=== PATIENT | female | born 1950 | race Caucasian/White ===

== ENCOUNTER 2017-03-03 12:53 | Inpatient (IN) | payer MEDICARE, MEDICAID ==
[2017-03-03] MEDS ORDERED: Acetaminophen TAB* 325 MG PO PRN ×2 (14:34→19:47)
[2017-03-03] MEDS ORDERED: NS 0.9% 1000 ML* 1,000 ML IV SCH (14:45)
[2017-03-03] MEDS ORDERED: Vancomycin(*) 1,000 MG in NS 0.9% 250 ML* 250 ML IVPB ONE (16:00)
[2017-03-03 16:27] LABS: Hematocrit 35 % (35-47); Hemoglobin 10.7 g/dl (12.0-16.0); Mean Corpuscular HGB Conc 31 g/dl (31-36); Mean Corpuscular Hemoglobin 22 pg (27-31); Mean Platelet Volume 7 um3 (7.4-10.4); Red Cell Distribution Width 17 % (10.5-15); White Blood Count 13.4 10^3/ul (3.5-10.8)
[2017-03-03 16:29] LABS: Comments Flag Yes
[2017-03-03 16:30] LABS: Mean Corpuscular Volume 73 fL (80-97)
[2017-03-03 17:16] LABS: Albumin 3.4 g/dL (3.2-5.2); BUN/Creatinine Ratio 17.7 (8-20); Calcium 9.1 mg/dL (8.6-10.3); EGFR African American 93.1 (>60); EGFR Non-African American 72.4 (>60); Globulin 4.5 g/dL (2-4); Potassium 4.1 mmol/L (3.5-5.0); Total Bilirubin 0.2 mg/dL (0.2-1.0); Total Protein 7.9 g/dL (6.4-8.9)
[2017-03-03] MEDS ORDERED: Vancomycin per Pharmacy* NOTE FOLLOW UP PRN (17:30)
[2017-03-03] MEDS: Zinc Sulfate CAP* 220 MG PO SCH (19:28)
[2017-03-03] MEDS: Cefepime(*) 2 GM in NS 0.9% 50 ML* 50 ML IVPB SCH (19:28)
[2017-03-03] MEDS ORDERED: Bisacodyl SUPP* 10 MG SUPP PR PRN (19:47)
[2017-03-03] MEDS ORDERED: traMADol TAB* 50 MG PO PRN (19:47)
[2017-03-03] MEDS ORDERED: Magnesium Hydroxide LIQ* 30 ML UDC PO PRN (19:47)
[2017-03-03] MEDS ORDERED: Magnesium CITRATE* 300 ML BTL PO PRN (19:47)
--- NOTE | 2017-03-03 20:48 | HP ---
HISTORY AND PHYSICAL: DATE OF ADMISSION: 03/03/17 PRIMARY CARE PROVIDER: Dr. Mee Ricketts. CHIEF COMPLAINT: Worsening wounds on the patient's buttocks. HISTORY OF PRESENT ILLNESS: Ms. Nation is a 66-year-old female with a history of multiple sclerosis with history of chronic wounds on the sacrum, status post diverting colostomy in the past, who was seen at wound care center today and decision was made for the patient to be transferred to inpatient service for treatment of those wounds that are worsening. From review of medical records, the patient was seen by Dr. Lujan on for worsening wounds on the sacral area. At that point, Dr. Lujan placed the patient on doxycycline at 100 mg b.i.d. for a total of 2 weeks. The patient still is continuing on those medications, but nevertheless, the wounds are apparently not healing well at all. The patient had a culture obtained which grew pseudomonas, Enterococcus faecalis, jan. She is being admitted with a diagnosis of wound infection. PAST MEDICAL HISTORY: 1. History of multiple sclerosis with subsequent paraplegia. 2. History of diverting colostomy due to multiple sacral nonhealing wounds in the past. 3. History of indwelling Borrego catheter. 4. History of left posterior knee ulcer that is also chronic. 5. Depression. 6. Constipation. 7. History of recurrent UTIs. 8. History of kidney stones. 9. Status post cholecystectomy. 10. History of appendectomy. 11. . MEDICATIONS: At the [facility] include: 1. Colace 100 mg b.i.d. started on 21 of February. 2. Lorazepam 1 mg at bedtime p.r.n. 3. Mirtazapine mg at night prescribed for anorexia. 4. Oxybutynin 5 mg, the patient takes 3 tablets which is a total of 15 mg daily. 5. Acetic acid 0.25% irrigation solution for irrigation of the catheter. The patient uses 30 mL of acetic acid to irrigate the catheter daily. 6. Vitamin D3 2000 units daily. 7. 150 mg daily and I believe the patient takes an additional 75 mg daily for a total of 225 mg daily. 8. Lotrisone cream topical apply to bilateral buttocks daily, 0.05% cream. 9. Dietary zinc tablet which is called Therems-M 1 tablet daily. 10. Biotin 1 tablet daily. 11. Senna with Colace 2 tablets b.i.d. 12. MiraLAX 17 g daily at bedtime. 13. Milk of magnesia. 14. Ultram on a p.r.n. basis. ALLERGIES: C1 PIGMENT BLUE 63, CYMBALTA, MORPHINE, OXYCODONE, and SENSI-CARE. FAMILY HISTORY: Negative for MS. Positive for diabetes in father. SOCIAL HISTORY: The patient is a resident at [facility]. She is wheelchair bound and paraplegic. Her daughter, Sobeida Beavers, is her healthcare proxy. Sobeida's phone number is [phone], another number is [phone]. The patient denies any tobacco, alcohol, or drug use. REVIEW OF SYSTEMS: The patient complains of pain in her buttocks. She denies any fevers. She stated that she had sores in her mouth that got better after treatment with zinc and Biotin. All the remaining 14 systems were reviewed with the patient and were otherwise negative. PHYSICAL EXAMINATION GENERAL: The patient is a very pleasant 66-year-old female, who is in no acute distress. The patient is alert, awake, and oriented x3. VITAL SIGNS: Blood pressure of 116/72, heart rate of 95 and regular, respiratory rate 18, O2 saturation 95% on room air, temperature 99.1. HEENT: Head: Atraumatic, normocephalic. Eyes: Pupils equal, reactive to light and accommodation. Oropharynx clear. Mucosa moist. NECK: Supple. No JVD, no bruit bilaterally. RESPIRATORY: Clear to auscultation bilaterally. CARDIOVASCULAR: Regular rate and rhythm. Tachycardia. No murmur. ABDOMEN: Soft, nontender. Colostomy present in the left lower quadrant with a peristomal hernia palpated. The hernia is not reducible, nontender. Bowel sounds present in all 4 quadrants. There is semi-fluid stool in the bag. EXTREMITIES: There is no edema. Pulses are +2 bilaterally. There is no clubbing or cyanosis. NEURO: The patient's speech is clear. Otherwise, she is paraplegic. PSYCHIATRIC: The patient is a rather poor historian, but pleasant and cooperative with evaluation. There is no evidence of anxiety or depression. She is pleasant and cheerful. SKIN: On evaluation of the skin, the patient has decubitus stage III in the area of her left popliteal fossa that is approximately 2 cm in diameter. Most of her other wounds involve the right buttock. The patient has an ischial tuberosity also that appears to have healed in the past and now, it has opened up again and there is a large indentation like area with an open area at the bottom of approximately 1 cm in diameter. That is not draining. She also has multiple large areas of decubitus on the right buttock. One of those areas is the size of a quarter coin and is stage III. The remaining ones are stage II. There are several of them probably 3 or 4, each of them measures approximately 2 x 3 cm. The patient also has areas of superficial excoriations in the left buttock that are decubitus stage I to II. The patient has an indwelling Borrego in place. DIAGNOSTIC STUDIES/LAB DATA: Pending at the time of dictation. ASSESSMENT AND PLAN: A 66-year-old female with history of chronic decubitus ulcers and paraplegia, status post diverting colostomy in the past as well as Borrego catheter that is currently indwelling, who presents from wound care center with complaints of nonhealing wounds. The patient was started on doxycycline by Dr. Lujan on 02/21/17 and is still continuing to take it. In regards to the patient's nonhealing wounds, there is a question of osteomyelitis in the right ischium. At this point, the patient is going to be placed on inpatient treatment. Judging from the microbiology report from the wound culture, the patient is going to be placed on vancomycin and cefepime. We will ask Dr. Lujan to see the patient for consultation to direct further antibiotic treatment. For the time being, I will obtain an MRI of the pelvis to rule out osteomyelitis. In regards to wound care, I will ask wound care center to advice in regards to the patient's continuation of treatment. The patient is going to be turned in position every 2 hours and air mattress is going to be provided. With history of chronic indwelling Borrego catheter, urinalysis is going to be obtained, but the patient is not toxic appearing and the urine in the bag appears to be clear. In regards to history of depression, Effexor is going to be continued. For DVT prophylaxis, the patient is going to be placed on heparin subcutaneously. The patient's code status is full. TIME SPENT: Approximately 65 minutes was spent on admission of this patient, more than half that time was spent [id number] with the patient during the interview and physical exam. CC: Dr. Mee Ricketts; Dr. Lujan; Dr. Loera, [facility] * [id number]/[facility] #: [id number] MTDD
[2017-03-03 22:43] LABS: Urine Bacteria Absent (Absent); Urine Bilirubin Negative (Negative); Urine Glucose Negative (Negative); Urine Nitrite Negative (Negative)
[2017-03-03] MEDS: LORazepam TAB(*) 1 MG PO SCH (22:58)
[2017-03-03] MEDS: Docusate CAP* 100 MG PO SCH (22:58)
[2017-03-03] MEDS: Polyethylene Glycol 3350* 17 GM PACKET PO SCH (22:58)
[2017-03-03] MEDS: Heparin VIAL(*) 5000 UNITS/ML VIAL (FIVE THOUSAND) SUBCUT SCH (22:59)
--- NOTE | 2017-03-03 23:21 | RAD ---
Indication: Chronic pressure wound on buttocks since 2009. Assess for osteomyelitis. Comparison: June 10, 2016 CT. Technique: [employer] 1.5 Bessy HT193P with GEM suite. Limited noncontrast CT of the pelvis obtained axial T1 and T2 fat sat as well as coronal T1, T2 fat sat, and inversion recovery series. No sagittal series obtained. Report: Based on correlation with CT post resection of the sacrum and coccyx below the S2-S3 level. Large shallow soft tissue ulcer at the RIGHT buttock extending down to the RIGHT hip which is remarkable for posterior subluxation of the femoral head relative to the acetabulum. Immediately subjacent to the soft tissue ulcer there is approximate 2 x 1.5 cm region of marrow edema within the posterior column and wall of the RIGHT acetabulum with associated decreased T1 signal. Previous CT demonstrates mild osteosclerosis in this region. The constellation of findings is consistent with chronic osteomyelitis. Small RIGHT hip joint effusion. No fracture evident. Catheterized decompressed urinary bladder. Unremarkable uterus and adnexal regions. Chronic large small and large bowel containing LEFT lower quadrant hernia exits through a fascia defect in the transverse and oblique musculature without evidence for associated inflammatory change or obstruction. Negative for ascites. No lymphadenopathy visualized. IMPRESSION: Contiguous with the RIGHT buttock soft tissue ulcer there is chronic osteomyelitis involving the posterior column posterior wall of the acetabulum. Small RIGHT hip joint effusion present with septic arthritis at the RIGHT hip is not excluded. The volume of fluid is likely too small to allow successful needle aspiration. The RIGHT hip is remarkable for chronic posterior subluxation.
[2017-03-04] MEDS: Vancomycin(*) 750 MG in NS 0.9% 250 ML* 250 ML IVPB SCH ×3 (01:08→18:01)
[2017-03-04] MEDS: Heparin VIAL(*) 5000 UNITS/ML VIAL (FIVE THOUSAND) SUBCUT SCH ×3 (04:49→21:18)
[2017-03-04] MEDS: Cefepime(*) 2 GM in NS 0.9% 50 ML* 50 ML IVPB SCH (04:49)
[2017-03-04 05:39] LABS: Hematocrit 35 % (35-47); Mean Corpuscular HGB Conc 31 g/dl (31-36); Mean Corpuscular Hemoglobin 23 pg (27-31); Mean Platelet Volume 7 um3 (7.4-10.4); Red Blood Count 4.82 10^6/ul (4.0-5.4); Red Cell Distribution Width 17 % (10.5-15)
[2017-03-04 05:40] LABS: Comments Flag Yes; Mean Corpuscular Volume 74 fL (80-97)
[2017-03-04 05:58] LABS: BUN/Creatinine Ratio 20.5 (8-20); Calcium 8.7 mg/dL (8.6-10.3); EGFR African American 182.9 (>60); EGFR Non-African American 142.2 (>60); Potassium 4.1 mmol/L (3.5-5.0)
[2017-03-04] MEDS: Oxybutynin XL TAB* 5 MG PO SCH (08:33)
[2017-03-04] MEDS: Zinc Sulfate CAP* 220 MG PO SCH (08:33)
[2017-03-04] MEDS: Venlafaxine EXT RELEASE CAP* 75 MG PO SCH (08:34)
[2017-03-04] MEDS: Docusate CAP* 100 MG PO SCH ×2 (08:34→21:16)
[2017-03-04] MEDS: Clotrimazole/Betamethasone CREAM* 15 GM TOPICAL SCH (08:34)
[2017-03-04] MEDS: Acetic Acid 0.25%* 250 ML BTL SCH (08:35)
--- NOTE | 2017-03-04 08:57 | PN ---
Subjective Date of Service: 03/04/17 Interval History: Patient seen this morning. Has no new complaints. Said she came to the hospital because her wounds were painful and were getting worse. Denies fever or chills. [facility] Family History: Unchanged from Admission Social History: Unchanged from Admission Past Medical History: Unchanged from Admission Objective Active Medications: Acetaminophen (Tylenol Tab*) 650 mg PO Q4H PRN Acetic Acid (Acetic Acid 0.25%*) 30 ml .SEE ORDER DAILY [facility] Betamethasone/Clotrimazole (Lotrisone Cream*) 1 applic TOPICAL DAILY [facility] Bisacodyl (Dulcolax Supp*) 10 mg OK DAILY PRN Docusate Sodium (Colace Cap*) 100 mg PO BID [facility] Heparin Sodium (Porcine) (Heparin Vial(*)) 5,000 units SUBCUT Q8HR [facility] Sodium Chloride (Ns 0.9% 1000 Ml*) 1,000 mls @ 75 mls/hr IV PER RATE [facility] Cefepime HCl 2 gm/ Sodium (Chloride) 50 mls @ 100 mls/hr IVPB Q12H [facility] Vancomycin HCl 750 mg/ Sodium (Chloride) 250 mls @ 166.667 mls/hr IVPB Q8H [facility] Lorazepam (Ativan Tab(*)) 1 mg PO BEDTIME [facility] Magnesium Citrate (Citrate Of Magnesia*) 60 ml PO ONCE PRN Magnesium Hydroxide (Milk Of Magnesia Liq*) 30 ml PO DAILY PRN Oxybutynin Chloride (Ditropan Xl Tab*) 15 mg PO DAILY [facility] Pharmacy Consult (Vancomycin Per Pharmacy*) 1 note FOLLOW UP . PRN Pharmacy Profile Note (Vancomycin Trough Check) 1 note FOLLOW UP 1630 ONE Polyethylene Glycol/Electrolytes (Miralax*) 17 gm PO BEDTIME [facility] Tramadol HCl (Ultram*) 50 mg PO Q8HR PRN Venlafaxine HCl (Effexor Xr Cap*) 225 mg PO DAILY [facility] Zinc Sulfate (Zinc-220 Cap*) 220 mg PO DAILY [facility] Vital Signs 03/03/17 03/03/17 03/03/17 15:01 20:09 22:58 Temperature 98.1 F 98.3 F Pulse Rate 105 100 Respiratory 21 21 18 Rate Blood Pressure 117/74 120/58 (mmHg) O2 Sat by Pulse 96 97 Oximetry 03/03/17 03/04/17 03/04/17 23:44 00:58 03:40 Temperature 98.5 F 98.4 F Pulse Rate 99 94 Respiratory 16 16 18 Rate Blood Pressure 134/72 111/67 (mmHg) O2 Sat by Pulse 97 98 Oximetry 03/04/17 03/04/17 04:11 07:44 Temperature Pulse Rate 93 Respiratory 18 16 Rate Blood Pressure 137/65 (mmHg) O2 Sat by Pulse 95 Oximetry Oxygen Devices in Use Now: None Appearance: Middle-aged, female, laying in bed in NAD Eyes: No Scleral Icterus Ears/Nose/Mouth/Throat: Mucous Membranes Moist Neck: NL Appearance and Movements; NL JVP Respiratory: Symmetrical Chest Expansion and Respiratory Effort, Clear to Auscultation Cardiovascular: NL Sounds; No Murmurs; No JVD, RRR Abdominal: - - Soft, non-tender, mild distention, LLQ colostomy Lymphatic: No Cervical Adenopathy Extremities: - - atrophied LEs, no edema Skin: - - Did not assess sacral/ischial wound (will evaluate with Dr. Lujan) Neurological: Alert and Oriented x 3 Result Diagrams: 03/04/17 05:12 03/04/17 05:12 Assess/Plan/Problems-Billing Assessment: Non-healing sacral/ischial wounds with concerns for deeper infection/osteo in a 66 yo F with hx of multiple sclerosis with paraplegia, chronic ulcers, chronic indwelling hammer, hx of diverting colostomy, depression - Patient Problems (1) Osteomyelitis Current Visit: Yes Comment: MRI shows small R hip effusion and concern for possible osteomyelitis/joint infection. Contiune Vancomycin and Cefepime for now. ID consult pending. Mild leukocytosis resolved. (2) Multiple sclerosis Current Visit: No Comment: Continue home tramadol (3) Depression Current Visit: No Comment: Continue Effexor and Ativan. (4) History of colostomy Current Visit: No (5) DVT prophylaxis Current Visit: No Comment: SQ heparin Status and Disposition: Inpatient pending ID consult and appropriate ABx regimen
[2017-03-04] MEDS ORDERED: Venlafaxine ER (NF) 150 MG CAP.ER PO SCH (09:00)
[2017-03-04] MEDS ORDERED: Vancomycin Trough Check NOTE FOLLOW UP ONE (16:30)
[2017-03-04] MEDS: Cefepime(*) 1 GM in NS 0.9% 50 ML* 50 ML IVPB SCH (16:54)
[2017-03-04] MEDS ORDERED: Vancomycin(*) 750 MG in NS 0.9% 250 ML* 250 ML IVPB SCH (21:00)
[2017-03-04] MEDS: LORazepam TAB(*) 1 MG PO SCH (21:15)
[2017-03-04] MEDS: Polyethylene Glycol 3350* 17 GM PACKET PO SCH (21:16)
--- NOTE | 2017-03-04 23:22 | CONS ---
CONSULTATION REPORT: DATE OF CONSULTATION: 03/04/17 REQUESTING PHYSICIAN: Pepper Estrada MD CONSULTING SERVICE: Infectious Disease. REASON FOR CONSULTATION: Decubitus ulcer, abnormal MRI. IMPRESSION: 1. Chronic decubitus ulcer of the right buttock, which has been there for a few years without evidence of associated cellulitis and an MRI that showed chronic osteomyelitis in the posterior column and posterior wall of the acetabulum and a small right hip joint effusion. Usual organisms for infection like this are gram positives. She was recently started on doxycycline as an outpatient. She does not have the use of her legs due to severe multiple sclerosis. I do not think there is a septic hip; however, because she has a negative log roll with the right leg. 2. Multiple sclerosis with severe bilateral lower extremity contractures. 3. Status post diverting colostomy. 4. Indwelling Borrego catheter. RECOMMENDATIONS: Stop vancomycin and cefepime. Resume doxycycline 100 mg by mouth twice daily. We will plan on this terminal clerk to at least suppress the chronic osteomyelitis of the acetabulum. I discussed with her that it is unlikely to be cured without resection of nonviable bone which would be a significant undertaking in her case and we had discussed this as an outpatient in the past as well. She is reluctant to pursue a major surgery. HISTORY OF PRESENT ILLNESS: This is a 66-year-old woman with multiple sclerosis , chronic decubitus ulceration, was in the senior care. She was seen in the wound clinic a couple of days ago and was felt to be worse than previously. She has not noticed any change in her symptoms. She started doxycycline a week and a half ago after starting as an outpatient. Culture, February 03, grew pseudomonas, MRSA, enterococcus, Zari glabrata, and normal phyllis. She had no fevers, chills, or sweats. She has a wound behind her left knee, which is stable. PAST MEDICAL HISTORY: 1. Multiple sclerosis, severe contractures of the lower extremities bilaterally. 2. Status post diverting colostomy. 3. Indwelling Borrego catheter. 4. Depression. 5. Constipation. 6. History of urinary tract infection. 7. Nephrolithiasis. 8. Status post cholecystectomy. 9. Status post appendectomy. 10. Status post . ALLERGIES: CYMBALTA, MORPHINE, and OXYCODONE. MEDICATIONS: 1. Tylenol. 2. Bisacodyl. 3. Docusate. 4. Heparin subcutaneous injection. 5. Cefepime 2 g every 12 hours. 6. Oxybutynin. 7. Vancomycin 750 mg every 8 hours. 8. Effexor. 9. Zinc. 10. Tramadol. SOCIAL HISTORY: Lives at [facility]. No sick contacts. FAMILY HISTORY: No recurrent infections. REVIEW OF SYSTEMS: All negative except as noted above. PHYSICAL EXAM: General: She is awake, in no acute distress. Vital Signs: Temperature is 37, heart rate 90, respiratory rate 18, blood pressure 111/67, and O2 sat 98% on room air. HEENT: There is no conjunctival hemorrhage. Oropharynx without lesions. Neck: Neck is supple without nuchal rigidity. Lymph Nodes: There is no cervical, supraclavicular, inguinal, axillary, or epitrochlear lymphadenopathy. Heart: Has a regular rate and rhythm without murmurs, rubs, or gallops. Lungs: Clear to auscultation bilaterally. Abdomen : Soft, nontender, and nondistended. There is a left lower quadrant ostomy with air and liquid stool. Neurologic: Alert and oriented x3. Follows all commands. Skin: There is no rash or splinter hemorrhages. Diffuse ulceration of the right buttock and sacrum, which is superficial with underlying erythematous soft tissue. No deep ulceration. DIAGNOSTIC STUDIES/LAB DATA: White blood cell count 9, hemoglobin 11, and platelets 527. Creatinine 0.4. Please see impressions and recommendations as outlined above, which I have discussed with Dr. Song. Thanks for asking me to see Ms. Nation in consultation. [id number]/[facility] #: [id number] SACHIN
[2017-03-05] MEDS ORDERED: CMCS Melatonin (NF) 3 MG TAB PO PRN (00:07)
[2017-03-05] MEDS: Cefepime(*) 1 GM in NS 0.9% 50 ML* 50 ML IVPB SCH (04:13)
[2017-03-05] MEDS: Heparin VIAL(*) 5000 UNITS/ML VIAL (FIVE THOUSAND) SUBCUT SCH (06:02)
--- NOTE | 2017-03-05 08:10 | DCNOTE ---
Patient seen this morning. She has no complaints. Spoke with Dr. Lujan yesterday and pleased with plan for discharge and continued oral ABx. On exam, RRR, s1 and s2 present, no m/g/r, abd soft, NTND, BS+, ostomy in place , atrophied LEs Discharge back to SNF with oral Doxycycline, f/u in the office with Dr. Lujan
[2017-03-05] MEDS: Oxybutynin XL TAB* 5 MG PO SCH (08:47)
[2017-03-05] MEDS: Zinc Sulfate CAP* 220 MG PO SCH (08:49)
[2017-03-05] MEDS: Venlafaxine EXT RELEASE CAP* 75 MG PO SCH (08:50)
[2017-03-05] MEDS: Vancomycin(*) 750 MG in NS 0.9% 250 ML* 250 ML IVPB SCH (09:04)
[2017-03-05] MEDS: Acetic Acid 0.25%* 250 ML BTL SCH (09:07)
[2017-03-05] MEDS: Clotrimazole/Betamethasone CREAM* 15 GM TOPICAL SCH (09:08)
--- NOTE | 2017-03-05 09:33 | DS ---
DISCHARGE SUMMARY: DATE OF ADMISSION: 03/03/17 DATE OF DISCHARGE: 03/05/17 PRIMARY CARE PHYSICIAN: Mee Ricketts MD CONSULTS DURING HOSPITALIZATION: Satya Lujan MD PRINCIPAL DISCHARGE DIAGNOSIS: Chronic osteomyelitis. SECONDARY DIAGNOSES: History of multiple sclerosis with paraplegia, history of diverting colostomy due to multiple sacral nonhealing wounds, history of indwelling Borrego catheter, history of chronic left posterior knee ulcer, depression, constipation, recurrent UTIs. DISCHARGE MEDICATION REGIMEN: 1. Zinc sulfate 220 mg by mouth daily. 2. Ativan 1 mg by mouth at bedtime. 3. Mirtazapine 7.5 mg by mouth at bedtime. 4. Oxybutynin 50 mg by mouth daily. 5. Acetic acid 0.25% flush Borrego daily. 6. Vitamin D3 1 tablet by mouth daily. 7. Effexor 150 mg by mouth daily. 8. Effexor 75 mg by mouth daily. 9. Lotrisone cream 1 application topical daily. 10. Biotin 1000 micrograms by mouth daily. 11. Senna Docusate 1 tablet by mouth 2 times daily. 12. Doxycycline 100 mg by mouth 2 times daily. 13. MiraLAX 17 g by mouth at bedtime. 14. Milk of magnesia 30 mL by mouth daily as needed for constipation. 15. Tramadol 50 mg by mouth every 8 hours as needed for pain. 16. Tylenol suppository 650 mg per rectum every 6 hours as needed for pain. 17. Tylenol tablets 650 mg by mouth every 6 hours as needed for pain. 18. Dulcolax suppository 10 mg per rectum daily as needed for constipation. 19. Magnesium citrate 60 mL by mouth once as needed for constipation. STUDIES DONE DURING HOSPITALIZATION: MRI of the pelvis without contrast. Impression: Contiguous with the right buttock soft tissue ulcer, there is chronic osteomyelitis involving the posterior wall of the acetabulum, small right hip joint effusion present with septic arthritis at the right hip is not excluded. The volume of fluid is likely too small to allow successful needle aspiration. The right hip is remarkable for chronic posterior subluxation. HISTORY OF PRESENT ILLNESS AND HOSPITAL SUMMARY: Please see the full history and physical by Dr. Pepper Estrada for full details. Briefly, Ms. Nation is a 66 -year- old female with past medical history as above, who presented to the hospital after there was some concern at the wound care center due to how her wounds were progressing. The physician down there felt that they were worsening , although the patient had seen Dr. Lujan as an outpatient recently and he started the patient on doxycycline 100 mg 2 times daily. An MRI was done with results as above. Dr. Lujan evaluated the patient and felt that the way the wounds looked, they did not require any change in medications. He switched her from her vancomycin and cefepime, which she was receiving here in the hospital, back to her oral doxycycline that was started as an outpatient and felt that this would be adequate treatment for her to try to suppress the infection. She will be discharged back to [facility] [place] on the oral antibiotics and follow up with Dr. Lujan or with her PCP. TIME SPENT: Total time spent on this discharge, 30 minutes. This is a summary of the hospitalization. Please see the full medical record for further details. CC: Dr. Mee Ricketts; Dr. Satya Lujan* [id number]/[facility] #: [id number] MTDD
[2017-03-05 10:23] VITALS: BP 102/55
--- NOTE | 2017-03-05 10:46 | PN ---
Progress Note - Progress Note SOAP: Subjective: DOS: 03/05/17 CC: decubitus ulcer HPI: 66 year old woman with MS and chronic decubiti of right buttock admitted with worsening of wound. Pain overnight in buttock, mild this morning. No fever, rash, or change in ostomy output. Objective: [] Vital Signs Temp 35.6 C 03/05/17 07:18 Pulse 75 03/05/17 08:14 Resp 22 03/05/17 08:00 BP 102/55 03/05/17 08:14 Pulse Ox 94 03/05/17 07:18 Intake & Output 03/04/17 03/05/17 03/05/17 18:59 06:59 18:59 Intake Total 808 968 Output Total 1100 850 Balance -292 118 Intake: IV Fluids 358 45 NS (0.9%) 358 45 IVPB 323 ABX - CEFEPIME 58 ABX - VANCOMYCIN 265 Oral 450 600 Output: Borrego 1100 850 Other: # Bowel Movements 0 Gen:No distress Neuro:AAOX3 HEENT:PERRL, MMM Neck:supple Heart:RRR no murmur Lungs:CTA BL Abd:+BS NTND Soft, ostomy bag Skin: no rash; right buttock diffuse ulceration MSK:BL LE contractures Laboratory Results - last 24 hr 03/04/17 15:52 Vancomycin Trough 20.0 Assessment: 1. decubitus ulcer right sacral area with associated cellulitis; MRI with chronic acetabular osteomyelitis 2. MS with contracture 3. thrombocytosis Plan: 1. discharge on doxycycline 100 mg po bid x 2 months and cipro 500 mg po bid x [address] Barnett
[2017-03-05] MEDS: Docusate CAP* 100 MG PO SCH (11:16)
[2017-03-06] MEDS ORDERED: Vancomycin Trough Check NOTE FOLLOW UP ONE (08:30)
== END 2017-03-05 11:45 | disposition home or self-care (01) | DRG 539 ==
LOC: MED 14:56
PROVIDERS: ADMIT Internal Medicine; ATTEND Hospitalist
DX: M86.68 Other chronic osteomyelitis, other site (principal); L89.323 Pressure ulcer of left buttock, stage 3; L89.314 Pressure ulcer of right buttock, stage 4; M00.9 Pyogenic arthritis, unspecified; G82.20 Paraplegia, unspecified; G35 Multiple sclerosis; L03.317 Cellulitis of buttock; L97.829 Non-pressure chronic ulcer of other part of left lower leg with unspecified severity; Z93.3 Colostomy status; F32.9 Major depressive disorder, single episode, unspecified; K59.00 Constipation, unspecified; Z87.440 Personal history of urinary (tract) infections; Z79.899 Other long term (current) drug therapy; Z88.5 Allergy status to narcotic agent; Z88.8 Allergy status to other drugs, medicaments and biological substances; Z91.02 Food additives allergy status; Z83.3 Family history of diabetes mellitus; Z99.3 Dependence on wheelchair
CPT/HCPCS: 36415; 72195; 80048; 80053; 80202; 81003; 81015; 85025; 87040; 87086; 94760; A9270-GY; J0692; J1644; J3370

== ENCOUNTER 2017-03-24 11:28 | Inpatient (IN) | payer MEDICARE, MEDICAID ==
[2017-03-24] MEDS ORDERED: Clindamycin 600 MG IVPREMIX(* 600 MG/50 ML SDV IV ONE (14:18)
[2017-03-24] MEDS ORDERED: NS 0.9% 1000 ML* 1,000 ML IV ONE ×2 (14:18→18:41)
[2017-03-24 15:07] LABS: Hematocrit 36 % (35-47); Hemoglobin 11.2 g/dl (12.0-16.0); Mean Corpuscular HGB Conc 31 g/dl (31-36); Mean Corpuscular Hemoglobin 23 pg (27-31); Mean Platelet Volume 7 um3 (7.4-10.4); Red Blood Count 4.93 10^6/ul (4.0-5.4); Red Cell Distribution Width 18 % (10.5-15); White Blood Count 20.8 10^3/ul (3.5-10.8)
[2017-03-24 15:08] LABS: Comments Flag Yes; Mean Corpuscular Volume 73 fL (80-97)
--- NOTE | 2017-03-24 15:21 | RAD ---
HISTORY: Cough COMPARISONS: June 09, 2016 VIEWS:1: Single frontal portable view of the chest at 3:00 PM. The patient is obliqued to the left FINDINGS: LINES AND TUBES: None. CARDIOMEDIASTINAL SILHOUETTE: The cardiomediastinal silhouette is normal for portable technique. PLEURA: The costophrenic angles are sharp. No pleural abnormalities are noted. LUNG PARENCHYMA: The lungs are clear. ABDOMEN: The upper abdomen is clear. There is no subphrenic gas. BONES AND SOFT TISSUES: Unremarkable IMPRESSION: NO ACTIVE CARDIOPULMONARY DISEASE.
[2017-03-24 15:23] LABS: Albumin 3.4 g/dL (3.2-5.2); BUN/Creatinine Ratio 24.4 (8-20); C Reactive Protein 288.44 mg/L (< 5.00); Calcium 9.2 mg/dL (8.6-10.3); EGFR African American 178.2 (>60); EGFR Non-African American 138.6 (>60); Globulin 4.7 g/dL (2-4); Total Bilirubin 0.3 mg/dL (0.2-1.0); Total Protein 8.1 g/dL (6.4-8.9)
[2017-03-24] MEDS ORDERED: Iohexol 300* (CONTRAST) 10 ML SDV IV ONE (15:34)
[2017-03-24 15:57] LABS: Potassium 4.1 mmol/L (3.5-5.0)
--- NOTE | 2017-03-24 16:15 | RAD ---
INDICATION: Cough, sore throat and elevated white blood count. COMPARISON: Comparison is made with a prior CT angiogram of the chest from September 06, 2015 and a prior chest x-ray study from March 24, 2017. TECHNIQUE: A CT scan of the chest was performed without intravenous contrast. Contiguous axial sections were obtained from the lung apices through the lung bases. Images were reconstructed in the coronal and sagittal planes. FINDINGS: There are mild dependent bilateral lower lobe infiltrates. No pleural effusion is seen. No significant enlarged mediastinal or hilar lymph nodes are seen. The heart is within normal limits in size. No pericardial effusion is present. The thoracic aorta is normal in caliber. No significant focal osseous abnormality is seen. IMPRESSION: SMALL DEPENDENT BILATERAL LOWER LOBE INFILTRATES.
--- NOTE | 2017-03-24 16:16 | RAD ---
HISTORY: Sore throat, elevated white count COMPARISONS: None TECHNIQUE: Multiple contiguous axial CT scans were obtained of the neck after the administration of nonionic intravenous contrast, with coronal and sagittal multiplanar reformations. FINDINGS: Evaluation limited by patient motion artifact. BRAIN AND ORBITS: The visualized brain and orbits are normal. PARANASAL SINUSES: The visualized paranasal sinuses are clear. SALIVARY GLANDS: The parotid glands, submandibular glands, sublingual glands are normal. NASAL CAVITY/NASOPHARYNX: The nasal cavity and nasopharynx are normal. ORAL CAVITY/OROPHARYNX: The oral cavity and oropharynx are unremarkable. LARYNGEAL APPARATUS/HYPOPHARYNX: Evaluation laryngeal apparatus is Limited by patient motion artifact but is grossly normal. UPPER AIRWAY/UPPER ESOPHAGUS: The visualized upper airway and esophagus are normal. LUNG APICES: There is pleural thickening on the right lung apex posteriorly THYROID GLAND: The thyroid gland is normal. LYMPH NODES: There is no lymphadenopathy by size criteria. VASCULATURE: The vasculature is unremarkable. BONES AND SOFT TISSUES: No bone or soft tissue abnormalities are noted. OTHER: None. IMPRESSION: 1. LIMITED STUDY. 2. NO LOCULATED FLUID COLLECTION TO SUGGEST ABSCESS. 3. PLEURAL THICKENING ALONG THE RIGHT LUNG APEX.
[2017-03-24] MEDS ORDERED: cefTRIAXone VIAL(*) 1,000 MG in NS 0.9% 50 ML* 50 ML IVPB ONE (17:16)
--- NOTE | 2017-03-24 17:33 | ED ---
I, Oh,Bradley, scribed for Mary Kilpatrick MD on 03/24/17 at 1422 . Throat Pain/Nasal Congestion - HPI Summary HPI Summary: This 66 y/o female presents to ED from wound clinic for throat pain since 5 days ago. Positive productive cough. Pt denies any sinus congestion. Pt has been controlling her cough with cough drops without much relief. Swallowing makes the pain worse. PMHx includes open wound at coccyx and MS that is not controlled with any steroid at this moment, per med sheet. Negative Hx of HTN or DM. Pt lives at [facility]. Pain medication was offered to patient, but pt refuses strongly, stating "I want this infection gone" and does not want any other care or treatment. - History of Current Complaint Chief Complaint: EDThroatPain Hx Obtained From: Patient, Medical Records Onset/Duration: Gradual Onset, Still Present Severity: Moderate Associated Signs And Symptoms: Negative: Sinus Discomfort Cough: Productive - green - Allergies/Home Medications Allergies/Adverse Reactions: Allergies Allergy/AdvReac Type Severity Reaction Status Date / Time CI Pigment Blue 63 Allergy Unknown Verified 03/24/17 11:36 [From Cymbalta] Reaction Details Duloxetine [From Cymbalta] Allergy Unknown Verified 03/24/17 11:36 Reaction Details Morphine Allergy Unknown Verified 03/24/17 11:36 Reaction Details Oxycodone [From Percocet] Allergy Unknown Verified 03/24/17 11:36 Reaction Details Home Medications: Home Medications Cepacol(NF) [Cepacol*] 3 mg PO DAILY PRN 03/24/17 [History Confirmed 03/24/17] Cholecalciferol [Vitamin D3 Super Strength] 2,000 unit PO DAILY 03/24/17 [ History Confirmed 03/24/17] LORazepam TAB(*) [Ativan 0.5 MG TAB (*)] 1 mg PO BEDTIME PRN 03/24/17 [History Confirmed 03/24/17] Lactulose* 60 ml PO DAILY PRN 03/24/17 [History Confirmed 03/24/17] Mirtazapine TAB* [Remeron TAB*] 7.5 mg PO BEDTIME 03/24/17 [History Confirmed ] Multivitamins/Minerals TAB* [Thera M Plus TAB*] 1 tab PO DAILY 03/24/17 [ History Confirmed 03/24/17] Nutritional Supplements [Ensure] 1 can PO BID 03/24/17 [History Confirmed ] PMH/Surg Hx/FS Hx/Imm Hx Endocrine/Hematology History: Reports: Hx Anemia Denies: Hx Anticoagulant Therapy, Hx Blood Disorders, Hx Blood Transfusions, Hx Bone Marrow Disease, Hx Diabetes, Hx Systemic Lupus Erythematosus, Hx Sickle Cell Disease, Hx Thyroid Disease, Hx Unexplained Bleeding, Other Endocrine/ Hematological Disorders Cardiovascular History: Denies: Hx Aneurysm, Hx Angina, Hx Angioplasty, Hx Auto Implanted Cardiovert Defib, Hx Cardiac Arrest, Hx Cardiomegaly, Hx Congenital Heart Disease, Hx Congestive Heart Failure, Hx Coronary Artery Disease, Hx Deep Vein Thrombosis, Hx Hypercholesterolemia, Hx Hypotension, Hx Hypertension, Hx Pacemaker/ICD, Hx Peripheral Vascular Disease, Hx Rheumatic Fever, Hx Syncope, Hx Valvular Heart Disease, Other Cardiovascular Problems/Disorders Respiratory History: Denies: Hx Asthma, Hx Bronchopulmonary Dysplasia, Hx Chronic Bronchitis, Hx Chronic Obstructive Pulmonary Disease (COPD), Hx Cystic Fibrosis, Hx Lung Cancer , Hx Pleural Effusion, Hx Pneumonia, Hx Pulmonary Edema, Hx Pulmonary Embolism, Hx Seasonal Allergies, Hx Sleep Apnea, Other Respiratory Problems/Disorders GI History: Reports: Hx Ileostomy - colostomy for buttocks wounds, Other GI Disorders - diverting colostomy Denies: Hx Cirrhosis, Hx Crohn's Disease, Hx Diverticulosis, Hx Gall Bladder Disease, Hx Gastroesophageal Reflux Disease, Hx Gastrointestinal Bleed, Hx Hiatal Hernia, Hx Irritable Bowel, Hx Jaundice, Hx Obstructive Bowel, Hx Pyloric Stenosis, Hx Ulcer History: Reports: Hx Kidney Stones, Hx Renal Disease - BAY D/T MS AND LACK OF MOBILITY, Other Problems/Disorders - frequent UTIs has indwelling bay Denies: Hx Acute Renal Failure, Hx Benign Prostatic Hyperplasia, Hx Chronic Renal Failure, Hx Dialysis, Hx Kidney Infection Musculoskeletal History: Reports: Other Musculoskeletal History - contractures of LE's, MS, Chronic Osteomyelitis Denies: Hx Arthritis, Hx Back Problems, Hx Bursitis, Hx Congenital Bone Abnormalities, Hx Fibromyalgia, Hx Gout, Hx Orthopedic Injury, Hx Osteoporosis, Hx Scoliosis, Hx Tendonitis Sensory History: Denies: Hx Cataracts, Hx Contacts or Glasses, Hx Eye Injury, Hx Eye Prosthesis, Hx Glaucoma, Hx Macular Degeneration, Hx Vision Problem, Hx Deafness , Hx Hearing Aid Opthamlomology History: Denies: Hx Cataracts, Hx Contacts or Glasses, Hx Eye Injury, Hx Eye Prosthesis, Hx Glaucoma, Hx Macular Degeneration, Hx Vision Problem Neurological History: Reports: Other Neuro Impairments/Disorders - MS Denies: Hx Dementia, Hx Developmental Delay, Hx Headaches, Hx Migraine, Hx Seizures, Hx Spinal Cord Injury, Hx Transient Ischemic Attacks (TIA) Psychiatric History: Reports: Hx Depression Denies: Hx Anxiety, Hx Attention Deficit Hyperactivity Disorder, Hx Autism, Hx Eating Disorder, Hx Oppositional [place] Disorder, Hx Panic Disorder, Hx Post Traumatic Stress Disorder, Hx Inpatient Treatment, Hx Community Mental Health Tx, Hx Schizophrenia, Hx Bipolar Disorder, Hx Suicide Attempt, Hx of Violent Episodes Against Others, Hx Substance Abuse, Other Psychiatric Issues/ Disorders - Surgical History Surgery Procedure, Year, and Place: 2010 at [place]-colostomy placement for non healing buttock wounds, , Appendectomy, Cholecystectomy Hx Anesthesia Reactions: No - Immunization History Date of Tetanus Vaccine: up to date Infectious Disease History: No Infectious Disease History: Reports: Hx of Known/Suspected MRSA - MRSA in sacral wound per pt. Denies: Hx Clostridium Difficile, Hx Hepatitis, Hx Human Immunodeficiency Virus (HIV), Hx Shingles, Hx Tuberculosis, Traveled Outside the [place] in Last 30 Days - Family History Known Family History: Positive: Diabetes - father Negative: Other - negative for MS - Social History Alcohol Use: None Hx Substance Use: No Substance Use Type: Reports: None Hx Tobacco Use: No Smoking Status (MU): Never Smoked Tobacco Review of Systems Negative: Fever Positive: Sore Throat Positive: Cough Negative: Anxious, Depressed All Other Systems Reviewed And Are Negative: Yes Physical Exam Triage Information Reviewed: Yes Vital Signs On Initial Exam: Initial Vitals Temp Pulse Resp BP Pulse Ox 98.2 F 117 18 137/71 94 03/24/17 11:30 03/24/17 11:30 03/24/17 11:30 03/24/17 11:30 03/24/17 11:30 Vital Signs Reviewed: Yes - Rose Coma Scale Coma Scale Total: 15 Diagnostics - Vital Signs Vital Signs Temp Pulse Resp BP Pulse Ox 03/24/17 11:34 98.2 F 116 18 137/71 94 03/24/17 11:30 98.2 F 117 18 137/71 94 - Laboratory Lab Results: Lab Results 04/24/17 04/24/17 04/24/17 Range/Units 14:33 14:50 14:50 WBC 20.8 H (3.5-10.8) 10^3/ul RBC 4.93 (4.0-5.4) 10^6/ul Hgb 11.2 L (12.0-16.0) g/dl Hct 36 (35-47) % MCV 73 L (80-97) fL MCH 23 L (27-31) pg MCHC 31 (31-36) g/dl RDW 18 H (10.5-15) % Plt Count 492 H (150-450) 10^3/ul MPV 7 L (7.4-10.4) um3 Neut % (Auto) 82.2 (38-83) % Lymph % (Auto) 10.7 L (25-47) % Pecos % (Auto) 5.0 (1-9) % Eos % (Auto) 1.8 (0-6) % Baso % (Auto) 0.3 (0-2) % Absolute Neuts (auto) 17.1 H (1.5-7.7) 10^3/ul Absolute Lymphs (auto) 2.2 (1.0-4.8) 10^3/ul Absolute Monos (auto) 1.0 H (0-0.8) 10^3/ul Absolute Eos (auto) 0.4 (0-0.6) 10^3/ul Absolute Basos (auto) 0.1 (0-0.2) 10^3/ul Absolute Nucleated RBC 0.01 10^3/ul Nucleated RBC % 0 Sodium 133 (133-145) mmol/L Potassium 4.1 (3.5-5.0) mmol/L Chloride 98 L (101-111) mmol/L Carbon Dioxide 27 (22-32) mmol/L Anion Gap 8 (2-11) mmol/L BUN 11 (6-24) mg/dL Creatinine 0.45 L (0.51-0.95) mg/dL Est GFR ( Amer) 178.2 (>60) Est GFR (Non-Af Amer) 138.6 (>60) BUN/Creatinine Ratio 24.4 H (8-20) Glucose 102 H (70-100) mg/dL Lactic Acid (0.5-2.0) mmol/L Calcium 9.2 (8.6-10.3) mg/dL Total Bilirubin 0.30 (0.2-1.0) mg/dL AST 24 (13-39) U/L ALT 21 (7-52) U/L Alkaline Phosphatase 148 H (34-104) U/L C-Reactive Protein 288.44 H (< 5.00) mg/L Total Protein 8.1 (6.4-8.9) g/dL Albumin 3.4 (3.2-5.2) g/dL Globulin 4.7 H (2-4) g/dL Albumin/Globulin Ratio 0.7 L (1-3) Influenza A (Rapid) (Negative) Influenza B (Rapid) (Negative) Group A Strep Rapid Negative (Negative) 03/24/17 03/24/17 Range/Units 14:50 15:34 WBC (3.5-10.8) 10^3/ul RBC (4.0-5.4) 10^6/ul Hgb (12.0-16.0) g/dl Hct (35-47) % MCV (80-97) fL MCH (27-31) pg MCHC (31-36) g/dl RDW (10.5-15) % Plt Count (150-450) 10^3/ul MPV (7.4-10.4) um3 Neut % (Auto) (38-83) % Lymph % (Auto) (25-47) % Pecos % (Auto) (1-9) % Eos % (Auto) (0-6) % Baso % (Auto) (0-2) % Absolute Neuts (auto) (1.5-7.7) 10^3/ul Absolute Lymphs (auto) (1.0-4.8) 10^3/ul Absolute Monos (auto) (0-0.8) 10^3/ul Absolute Eos (auto) (0-0.6) 10^3/ul Absolute Basos (auto) (0-0.2) 10^3/ul Absolute Nucleated RBC 10^3/ul Nucleated RBC % Sodium (133-145) mmol/L Potassium (3.5-5.0) mmol/L Chloride (101-111) mmol/L Carbon Dioxide (22-32) mmol/L Anion Gap (2-11) mmol/L BUN (6-24) mg/dL Creatinine (0.51-0.95) mg/dL Est GFR ( Amer) (>60) Est GFR (Non-Af Amer) (>60) BUN/Creatinine Ratio (8-20) Glucose (70-100) mg/dL Lactic Acid 0.8 (0.5-2.0) mmol/L Calcium (8.6-10.3) mg/dL Total Bilirubin (0.2-1.0) mg/dL AST (13-39) U/L ALT (7-52) U/L Alkaline Phosphatase (34-104) U/L C-Reactive Protein (< 5.00) mg/L Total Protein (6.4-8.9) g/dL Albumin (3.2-5.2) g/dL Globulin (2-4) g/dL Albumin/Globulin Ratio (1-3) Influenza A (Rapid) Negative (Negative) Influenza B (Rapid) Negative (Negative) Group A Strep Rapid (Negative) Result Diagrams: 03/24/17 14:50 03/24/17 14:50 Lab Statement: Any lab studies that have been ordered have been reviewed, and results considered in the medical decision making process. - Radiology CXR Xray Interpretation: No Acute Changes Radiology Interpretation Completed By: Radiologist Neck Xray Interpretation: Positive (See Comments) - 1. LIMITED STUDY. 2. NO LOCULATED FLUID COLLECTION TO SUGGEST ABSCESS. 3. PLEURAL THICKENING ALONG THE RIGHT LUNG APEX. Radiology Interpretation Completed By: Radiologist - CT Chest CT Interpretation: Positive (See Comments) - SMALL DEPENDENT BILATERAL LOWER LOBE INFILTRATES. CT Interpretation Completed By: Radiologist Re-Evaluation - Re-Evaluation First Eval Re-Evaluation Time: 16:53 Comment: MD in room to re-evaluate pt, and discuss plan of care. EENT Course/Dx - Course Course Of Treatment: 66 yo female who comes in with a severe sore throat bringing up green mucus after spending time at her daughters house where a family member was sick. Pt has ms and is bed bound. She is not willing to discuss her MS. Her crp was elevated and so a CT or her throat and lungs were done showing pneumonia but normal soft tissue neck of note strep and flu were negative. Pt was initially covered with clinda for her sore throat and after case was discussed with Dr. Leonard for admission ceftriaxone was added to better cover pneumonia - Diagnoses Provider Diagnoses: Pneumonia - Provider Notifications Discussed Care of Patient with: Dr. Leonard (hospitalist) at 1716 PM Instructed by Provider To: Admit As Inpatient Discharge - Discharge Plan Condition: Stable Disposition: ADMITTED TO [facility] Referrals: Mee Ricketts MD [Primary Care Provider] - The documentation as recorded by the Juan castellanos Soohyun accurately reflects the service I personally performed and the decisions made by me, Mary Kilpatrick MD.
[2017-03-24] MEDS ORDERED: Acetaminophen TAB* 325 MG PO PRN (18:27)
[2017-03-24] MEDS ORDERED: Ondansetron INJ* 2 MG/ML VIAL IV PRN (18:27)
[2017-03-24] MEDS ORDERED: Magnesium CITRATE* 300 ML BTL PO PRN (18:29)
[2017-03-24] MEDS ORDERED: Magnesium Hydroxide LIQ* 30 ML UDC PO PRN (18:29)
[2017-03-24] MEDS ORDERED: Benzocaine/Menthol LOZ* 1 LOZENGE PO PRN (18:29)
[2017-03-24] MEDS ORDERED: LORazepam TAB(*) 1 MG PO PRN (18:29)
[2017-03-24] MEDS ORDERED: LACTULOSE* 30 ML UDC PO PRN (18:29)
[2017-03-24] MEDS ORDERED: Bisacodyl SUPP* 10 MG SUPP PR PRN (18:29)
[2017-03-24] MEDS ORDERED: NS 0.9% 1000 ML* 1,000 ML IV SCH (18:45)
[2017-03-24] MEDS ORDERED: NON FORMULARY MED* (Nutritional Supplements [Ensure] 1 CAN) PO SCH (21:00)
[2017-03-24] MEDS: Docusate CAP* 100 MG PO SCH (21:22)
[2017-03-24] MEDS: Mirtazapine TAB* 15 MG PO SCH (21:22)
[2017-03-24] MEDS: Senna TAB PO SCH (21:23)
[2017-03-24] MEDS: Polyethylene Glycol 3350* 17 GM PACKET PO SCH (21:23)
[2017-03-24] MEDS: traMADol TAB* 50 MG PO PRN (21:23)
[2017-03-24] MEDS: Heparin VIAL(*) 5000 UNITS/ML VIAL (FIVE THOUSAND) SUBCUT SCH (21:24)
[2017-03-24] MEDS: Azithromycin IV(*) 500 MG in NS 0.9% 250 ML* 250 ML IVPB SCH (21:43)
--- NOTE | 2017-03-25 01:21 | HP ---
HISTORY AND PHYSICAL: DATE OF ADMISSION: 03/24/17 PRIMARY CARE PROVIDER: [place]. ATTENDING PHYSICIAN WHILE IN THE HOSPITAL: Jun Song MD * (report dictated by Aftab Sterling NP) CHIEF COMPLAINT: 1. Cough. 2. Sore throat. HISTORY OF PRESENT ILLNESS: Ms. Nation is a 66-year-old female patient with a history of MS, sacral wounds, history of neurogenic bladder with chronic Borrego, history of a pressure ulcer to her left knee, depression, constipation, UTI, nephrolithiasis, and a history of chronic osteomyelitis; actually recently was just here at the beginning of the month with concerns of recurrence and worsening wounds, and was seen and evaluated and ultimately sent back to [facility] with p.o. antibiotics. Unfortunately though, she comes back in today stating that she has been having over the last couple of days progressive worsening sore throat, particularly on the right side, and no trouble with swallowing. She states that she denied any fevers or chills, but she does state that she has been coughing and she has been coughing quite a bit for the last week and she has been bringing up at times a green-type sputum and again there has been no chest pain, no shortness of breath, no orthopnea, and no nocturnal dyspnea, but she states she has been not feeling fell, particularly the last couple of days. She was evaluated at [facility]. It was felt that this was a pharyngitis and was given cough drops, but unfortunately, the symptoms persisted. She went to the wound clinic today for routine followup, was evaluated there and Dr. Loera was concerned and actually sent her to the ER , in which it was noted that her white count had elevated, her CRP was up and ultimately was found to have bilateral lower lobe infiltrates. The patient came in to the ER. It was noted that her CRP was climbing. It was noted again that she had an elevated white count. There was no fever. There was no hypoxia or tachypnea, but she did appear to be tachycardic. The hospitalist service was asked to evaluate for admission. PAST MEDICAL HISTORY: Significant for: 1. MS. 2. Sacral wounds. 3. Left knee ulcer. 4. Depression. 5. Neurogenic bladder. 6. Constipation. 7. UTIs. 8. Nephrolithiasis. 9. Osteomyelitis. PAST SURGICAL HISTORY: 1. She has had a colostomy. 2. . 3. Laparoscopic cholecystectomy. 4. Appendectomy. HOME MEDICATIONS: According to the [facility] records include: 1. Tramadol 50 mg every 8 hours as needed. 2. Zinc 220 mg p.o. daily. 3. Effexor 75 mg daily. 4. Effexor 150 mg daily. 5. Senna 1 tab p.o. b.i.d. 6. MiraLAX 17 g p.o. daily. 7. Oxybutynin 15 mg p.o. daily. 8. Ensure 1 can p.o. b.i.d. 9. Multivitamin 1 tablet daily. 10. Remeron 7.5 mg p.o. daily. 11. Milk of magnesia 30 cc p.o. daily as needed. 12. Magnesium citrate 60 p.o. daily as needed. 13. Lactulose 60 cc p.o. daily as needed. 14. Ativan 1 mg at bedtime as needed. 15. Vitamin D3 2000 units p.o. daily. 16. Cepacol lozenges 1 lozenge p.o. daily as needed. 17. Dulcolax suppository 10 mg DC daily as needed. 18. Biotin 1000 mcg p.o. daily. 19. Acetic acid 0.25% 30 cc daily. 20. Tylenol 650 mg p.o. every 6 hours as needed. 21. Tylenol suppository 650 mg DC every 6 hours as needed. ALLERGIES TO MEDICATIONS: Include CYMBALTA, MORPHINE, and OXYCODONE. FAMILY HISTORY: Her mother's history is really unknown, but her father has a history of diabetes. Both her sister and brother did have coronary artery disease. SOCIAL HISTORY: She lives at [facility]. She does not smoke. She does not drink. Surrogate decision maker currently is her daughter, Sobeida. She could be contacted at [phone]. REVIEW OF SYSTEMS: There is no documented fever. She denied having any significant weight change. There was no double vision. She denies having any ear discharge. There was no rhinorrhea. There was a sore throat. There was no thyroid enlargement. She denied having any chest pain. She did admit to having a cough. No orthopnea. No nocturnal dyspnea. There was no abdominal pain. No nausea. No vomiting. No dysuria. No frequency. No seizure. No loss of consciousness. No pruritus. No skin ulcerations. Review of 14 systems completed, all others negative. PHYSICAL EXAMINATION GENERAL: At this time, Ms. Nation is a 66-year-old female patient. She is sitting in the ER stretcher. She does not appear to be in any acute distress. VITAL SIGNS: Reveal blood pressure 137/71 with a pulse of 116, respirations 18 , O2 sat 94%, and temperature 98.2. HEENT: Head is atraumatic and normocephalic. Eyes: EOMs are intact. Sclerae are anicteric and not pale. NECK: Supple. Throat: Oral mucosa appeared to be dry. No oropharyngeal erythema. LUNGS: She did have some crackles in the bases. Equal diaphragmatic expansion. HEART: Sounds S1, S2. She is tachycardic. ABDOMEN: Soft, flat, nontender. Bowel sounds are present. Colostomy was in situ. EXTREMITIES: Again, her lower extremities are atrophied and chronically contracted. She had upper strength of 5/5 strength. NEUROLOGIC: She is awake, alert, and oriented x3. Communications Project Manager are equal. Tongue midline. She had no gross focal deficits. She appears to be paralyzed from the waist down. SKIN: Intact with the exception she has a sacral wound, which is covered with a dressing, appeared to be clean, dry, and intact. They were changed today at wound clinic. She also has a dressing noted to the left knee to the posterior portion, which again is clean, dry, and intact. DIAGNOSTIC STUDIES/LAB DATA: Labs today revealed a WBC of 20.8, RBC of 4.93, hemoglobin 11.2, hematocrit of 36, and platelet count of 492. The sodium was 133, potassium 4.1, chloride of 98, bicarb 27, BUN 11, creatinine of 0.45, glucose 102, lactic 0.8, and calcium 9.2. Total bili 0.3, AST 34, ALT 31, alk phos 148. CRP of 288. Albumin was 3.4. Influenza was negative. Group A strep negative. She had a chest CT today, which showed small dependent bilateral lower lobe infiltrates. She had a neck CT, which revealed limited study. No loculated fluid collection to suggest abscess. Pleural thickening along the right lung apex. A chest x-ray, which showed no active cardiopulmonary disease. Old medical records were reviewed. ASSESSMENT AND PLAN: Ms. Nation is a 66-year-old female patient coming into the ER today with complaints of evaluation for cough and sore throat. On evaluation today, it was found that she had bilateral pneumonia. She will be admitted under inpatient status for: 1. Bilateral pneumonia: At this point, she does have a white count, she is tachycardic, but she does not have any signs of severe sepsis. At this point, I will go ahead and will give her a liter of fluids, normal saline at 100 cc an hour. Blood cultures were sent. We will get Legionella antigen and a strep pneumonia antigen. In addition to this, we also will go ahead and get sputum cultures if possible. We will go ahead and put her on Rocephin and azithromycin. I have ordered Flutter valve eval and incentive spirometry and we will continue to follow her closely. 2. History of multiple sclerosis: Continue with medications as prescribed and supportive care. 3. History of neurogenic bladder: Continue with the Borrego. 4. History of multiple wounds: I did place a consult to Wound Care to help us with their recommendations and for dressing change recommendations. 5. Depression: Continue current medical regimen. 6. Constipation: I will continue her bowel regimen. 7. History of nephrolithiasis: Not an active issue. 8. Osteomyelitis, which is chronic: She can follow with her primary in [place] and Dr. Lujan. 9. Recurrent urinary tract infections: Does not appear to have urinary tract infection at this point. 10. DVT prophylaxis: She is high risk. She will be placed on heparin subcu. 11. Code status: Full code. 12. Fluids, electrolytes, and nutrition: She can have a regular diet. TIME SPENT: Time spent on the admission was approximately 60 minutes; greater than half the time was spent [id number] with the patient obtaining my history and physical, the other half the time is spent going over the plan of care with the patient and implementing plan of care. I discussed the plan of care with my attending, Dr. Song. He is in agreement. AFTAB STERLING NP CC: [place]* [id number]/[facility] #: [id number] SACHIN
[2017-03-25] MEDS: Heparin VIAL(*) 5000 UNITS/ML VIAL (FIVE THOUSAND) SUBCUT SCH ×3 (05:41→20:24)
[2017-03-25 06:35] LABS: Hematocrit 32 % (35-47); Hemoglobin 9.7 g/dl (12.0-16.0); Mean Corpuscular HGB Conc 31 g/dl (31-36); Mean Corpuscular Hemoglobin 22 pg (27-31); Red Blood Count 4.33 10^6/ul (4.0-5.4); Red Cell Distribution Width 18 % (10.5-15); White Blood Count 20.2 10^3/ul (3.5-10.8)
[2017-03-25 06:44] LABS: Add Diff/Slide Review? Slide Review Added; Comments Flag Yes; Mean Corpuscular Volume 74 fL (80-97)
[2017-03-25 07:07] LABS: Calcium 8.1 mg/dL (8.6-10.3); Potassium 3.8 mmol/L (3.5-5.0)
[2017-03-25] MEDS ORDERED: Venlafaxine ER (NF) 150 MG CAP.ER PO SCH (09:00)
[2017-03-25] MEDS: Cholecalciferol TAB* 1000 UNITS PO SCH (10:00)
[2017-03-25] MEDS: Venlafaxine EXT RELEASE CAP* 75 MG PO SCH (10:00)
[2017-03-25] MEDS: Multivitamins/Minerals TAB PO SCH (10:00)
[2017-03-25] MEDS: Docusate CAP* 100 MG PO SCH ×2 (10:01→20:23)
[2017-03-25] MEDS: Senna TAB PO SCH ×2 (10:01→20:23)
[2017-03-25] MEDS: Oxybutynin XL TAB* 5 MG PO SCH (10:01)
[2017-03-25] MEDS: Acetic Acid 0.25%* 250 ML BTL SCH (10:01)
[2017-03-25] MEDS: Zinc Sulfate CAP* 220 MG PO SCH (10:02)
[2017-03-25] MEDS: BIOTIN 1000 MCG PO SCH (10:02)
[2017-03-25] MEDS: traMADol TAB* 50 MG PO PRN (14:50)
[2017-03-25] MEDS: cefTRIAXone VIAL(*) 1,000 MG in NS 0.9% 50 ML* 50 ML IVPB SCH (17:26)
--- NOTE | 2017-03-25 20:05 | PN ---
Subjective Date of Service: 03/25/17 Interval History: Patient feels better. Less sob. Objective Active Medications: Acetaminophen (Tylenol Tab*) 650 mg PO Q4H PRN PRN Reason: FEVER/PAIN Last Admin: 03/24/17 21:22 Dose: 650 mg Acetic Acid (Acetic Acid 0.25%*) 30 ml .SEE ORDER DAILY [facility] Last Admin: 03/25/17 10:01 Dose: 30 ml Bisacodyl (Dulcolax Supp*) 10 mg PA DAILY PRN PRN Reason: CONSTIPATION Cholecalciferol (Vitamin D Tab*) 2,000 units PO DAILY [facility] Last Admin: 03/25/17 10:00 Dose: 2,000 units Docusate Sodium (Colace Cap*) 100 mg PO BID [facility] Last Admin: 03/25/17 10:01 Dose: 100 mg Heparin Sodium (Porcine) (Heparin Vial(*)) 5,000 units SUBCUT Q8HR [facility] Last Admin: 03/25/17 14:50 Dose: 5,000 units Ceftriaxone Sodium 1,000 mg/ (Sodium Chloride) 50 mls @ 200 mls/hr IVPB Q24H [facility] Last Admin: 03/25/17 17:26 Dose: 200 mls/hr Azithromycin 500 mg/ Sodium (Chloride) 250 mls @ 250 mls/hr IVPB Q24H [facility] Last Admin: 03/24/17 21:43 Dose: 250 mls/hr Lactulose (Lactulose*) 60 ml PO DAILY PRN PRN Reason: CONSTIPATION Lorazepam (Ativan Tab(*)) 1 mg PO BEDTIME PRN PRN Reason: ANXIETY Magnesium Citrate (Citrate Of Magnesia*) 60 ml PO ONCE PRN PRN Reason: CONSTIPATION Magnesium Hydroxide (Milk Of Magnesia Liq*) 30 ml PO DAILY PRN PRN Reason: CONSTIPATION Mirtazapine (Remeron Tab*) 7.5 mg PO BEDTIME [facility] Last Admin: 03/24/17 21:22 Dose: 7.5 mg Multivitamins/Minerals (Theragran/Minerals Tab*) 1 tab PO DAILY [facility] Last Admin: 03/25/17 10:00 Dose: 1 tab Non-Formulary Medication (Biotin [Biotin]) 1,000 mcg PO DAILY [facility] Last Admin: 03/25/17 10:02 Dose: Not Given Ondansetron HCl (Zofran Inj*) 4 mg IV Q6H PRN PRN Reason: NAUSEA Oxybutynin Chloride (Ditropan Xl Tab*) 15 mg PO DAILY [facility] Last Admin: 03/25/17 10:01 Dose: 15 mg Polyethylene Glycol/Electrolytes (Miralax*) 17 gm PO BEDTIME [facility] Last Admin: 03/24/17 21:23 Dose: 17 gm Senna (Senokot Tab*) 1 tab PO BID [facility] Last Admin: 03/25/17 10:01 Dose: 1 tab Throat Lozenges (Chloraseptic Chelly*) 1 chelly PO DAILY PRN PRN Reason: SORE THROAT Last Admin: 03/24/17 21:26 Dose: 1 chelly Tramadol HCl (Ultram*) 50 mg PO Q8HR PRN PRN Reason: PAIN Last Admin: 03/25/17 14:50 Dose: 50 mg Venlafaxine HCl (Effexor Xr Cap*) 225 mg PO DAILY [facility] Last Admin: 03/25/17 10:00 Dose: 225 mg Zinc Sulfate (Zinc-220 Cap*) 220 mg PO DAILY [facility] Last Admin: 03/25/17 10:02 Dose: 220 mg Vital Signs 03/24/17 03/24/17 03/24/17 20:35 21:23 23:23 Temperature 99.1 F Pulse Rate 116 Respiratory 18 18 16 Rate Blood Pressure 129/60 (mmHg) O2 Sat by Pulse 96 Oximetry 03/24/17 03/25/17 03/25/17 23:35 01:46 03:43 Temperature 98.4 F Pulse Rate 110 110 96 Respiratory 16 16 16 Rate Blood Pressure 119/55 136/52 (mmHg) O2 Sat by Pulse 94 94 92 Oximetry 03/25/17 03/25/17 03/25/17 07:28 07:36 08:00 Temperature 99.1 F Pulse Rate 101 102 Respiratory 17 16 19 Rate Blood Pressure 129/62 (mmHg) O2 Sat by Pulse 94 93 Oximetry 03/25/17 03/25/17 03/25/17 11:12 14:50 15:26 Temperature 98.9 F 98.3 F Pulse Rate 100 105 Respiratory 16 19 18 Rate Blood Pressure 123/61 106/48 (mmHg) O2 Sat by Pulse 96 97 Oximetry 03/25/17 16:50 Temperature Pulse Rate Respiratory 17 Rate Blood Pressure (mmHg) O2 Sat by Pulse Oximetry Oxygen Devices in Use Now: Nasal Cannula Appearance: Elderly woman looking younger than her stated age in NAD Eyes: No Scleral Icterus Ears/Nose/Mouth/Throat: Clear Oropharnyx Neck: No Thyroid Enlargement, Masses Respiratory: - - Diminished breath sounds Cardiovascular: - - S1S2 sebastián Abdominal: NL Sounds; No Tenderness; No Distention, No Hepatosplenomegaly Lymphatic: No Cervical Adenopathy Extremities: No Edema, No Clubbing, Cyanosis Skin: No Rash or Ulcers Neurological: Alert and Oriented x 3 Result Diagrams: 03/25/17 05:53 03/25/17 05:53 Additional Lab and Data: Lab Results 03/24/17 03/24/17 03/24/17 Range/Units 14:33 14:50 14:50 WBC 20.8 H (3.5-10.8) 10^3/ul RBC 4.93 (4.0-5.4) 10^6/ul Hgb 11.2 L (12.0-16.0) g/dl Hct 36 (35-47) % MCV 73 L (80-97) fL MCH 23 L (27-31) pg MCHC 31 (31-36) g/dl RDW 18 H (10.5-15) % Plt Count 492 H (150-450) 10^3/ul MPV 7 L (7.4-10.4) um3 Neut % (Auto) 82.2 (38-83) % Lymph % (Auto) 10.7 L (25-47) % Lowndes % (Auto) 5.0 (1-9) % Eos % (Auto) 1.8 (0-6) % Baso % (Auto) 0.3 (0-2) % Absolute Neuts (auto) 17.1 H (1.5-7.7) 10^3/ul Absolute Lymphs (auto) 2.2 (1.0-4.8) 10^3/ul Absolute Monos (auto) 1.0 H (0-0.8) 10^3/ul Absolute Eos (auto) 0.4 (0-0.6) 10^3/ul Absolute Basos (auto) 0.1 (0-0.2) 10^3/ul Absolute Nucleated RBC 0.01 10^3/ul Nucleated RBC % 0 Sodium 133 (133-145) mmol/L Potassium 4.1 (3.5-5.0) mmol/L Chloride 98 L (101-111) mmol/L Carbon Dioxide 27 (22-32) mmol/L Anion Gap 8 (2-11) mmol/L BUN 11 (6-24) mg/dL Creatinine 0.45 L (0.51-0.95) mg/dL Est GFR ( Amer) 178.2 (>60) Est GFR (Non-Af Amer) 138.6 (>60) BUN/Creatinine Ratio 24.4 H (8-20) Glucose 102 H (70-100) mg/dL Lactic Acid (0.5-2.0) mmol/L Calcium 9.2 (8.6-10.3) mg/dL Total Bilirubin 0.30 (0.2-1.0) mg/dL AST 24 (13-39) U/L ALT 21 (7-52) U/L Alkaline Phosphatase 148 H (34-104) U/L C-Reactive Protein 288.44 H (< 5.00) mg/L Total Protein 8.1 (6.4-8.9) g/dL Albumin 3.4 (3.2-5.2) g/dL Globulin 4.7 H (2-4) g/dL Albumin/Globulin Ratio 0.7 L (1-3) Influenza A (Rapid) (Negative) Influenza B (Rapid) (Negative) Group A Strep Rapid Negative (Negative) 03/24/17 03/24/17 Range/Units 14:50 15:34 WBC (3.5-10.8) 10^3/ul RBC (4.0-5.4) 10^6/ul Hgb (12.0-16.0) g/dl Hct (35-47) % MCV (80-97) fL MCH (27-31) pg MCHC (31-36) g/dl RDW (10.5-15) % Plt Count (150-450) 10^3/ul MPV (7.4-10.4) um3 Neut % (Auto) (38-83) % Lymph % (Auto) (25-47) % L[place] % (Auto) (1-9) % Eos % (Auto) (0-6) % Baso % (Auto) (0-2) % Absolute Neuts (auto) (1.5-7.7) 10^3/ul Absolute Lymphs (auto) (1.0-4.8) 10^3/ul Absolute Monos (auto) (0-0.8) 10^3/ul Absolute Eos (auto) (0-0.6) 10^3/ul Absolute Basos (auto) (0-0.2) 10^3/ul Absolute Nucleated RBC 10^3/ul Nucleated RBC % Sodium (133-145) mmol/L Potassium (3.5-5.0) mmol/L Chloride (101-111) mmol/L Carbon Dioxide (22-32) mmol/L Anion Gap (2-11) mmol/L BUN (6-24) mg/dL Creatinine (0.51-0.95) mg/dL Est GFR ( Amer) (>60) Est GFR (Non-Af Amer) (>60) BUN/Creatinine Ratio (8-20) Glucose (70-100) mg/dL Lactic Acid 0.8 (0.5-2.0) mmol/L Calcium (8.6-10.3) mg/dL Total Bilirubin (0.2-1.0) mg/dL AST (13-39) U/L ALT (7-52) U/L Alkaline Phosphatase (34-104) U/L C-Reactive Protein (< 5.00) mg/L Total Protein (6.4-8.9) g/dL Albumin (3.2-5.2) g/dL Globulin (2-4) g/dL Albumin/Globulin Ratio (1-3) Influenza A (Rapid) Negative (Negative) Influenza B (Rapid) Negative (Negative) Group A Strep Rapid (Negative) Microbiology and Other Data: Microbiology 03/25/17 01:30 Legionella Urinary Antigen - Final Urine Negative Legionella Streptococcus pneumoniae Ag Screen - Final Negative S. pneumo Antigen 03/24/17 22:17 Gram Stain - Final Sputum Expectorated Assess/Plan/Problems-Billing Assessment: 66 year old woman who presented to [facility] sore throat and cough and found to have b/l pneumonia. - Patient Problems (1) Pneumonia Current Visit: Yes Status: Acute Code(s): J18.9 - PNEUMONIA, UNSPECIFIED ORGANISM SNOMED Code(s): 965702154 Comment: Improved. Continue Rocephin and Zithromax. Urine for Legionella and Pneumococcal AG neg. (2) Osteomyelitis Current Visit: No Status: Acute Code(s): M86.9 - OSTEOMYELITIS, UNSPECIFIED SNOMED Code(s): 00106077 Comment: Chronic. Follow up with Dr. Berkowitz. (3) Depression Current Visit: No Status: Chronic Code(s): F32.9 - MAJOR DEPRESSIVE DISORDER , SINGLE EPISODE, UNSPECIFIED SNOMED Code(s): 46451111 Comment: Stable. Continue current regimen. (4) Multiple sclerosis Current Visit: No Status: Chronic Code(s): G35 - MULTIPLE SCLEROSIS SNOMED Code(s): 98239800 Comment: Continue current treatment. Stable. (5) Sacral decubitus ulcer Current Visit: No Status: Chronic Comment: Appreciate wound care's input. Will order Medihoney gel to scaral.Medihoney colloid to leg wounds. (6) DVT prophylaxis Current Visit: Yes Status: Acute Code(s): SQF0070 - SNOMED Code(s): 936719013 Comment: Heparin sub q
[2017-03-25] MEDS: Azithromycin IV(*) 500 MG in NS 0.9% 250 ML* 250 ML IVPB SCH (20:11)
[2017-03-25] MEDS: Mirtazapine TAB* 15 MG PO SCH (20:23)
[2017-03-25] MEDS: Polyethylene Glycol 3350* 17 GM PACKET PO SCH (20:23)
[2017-03-26] MEDS: Heparin VIAL(*) 5000 UNITS/ML VIAL (FIVE THOUSAND) SUBCUT SCH ×2 (06:18→14:47)
[2017-03-26 06:53] LABS: Hematocrit 33 % (35-47); Hemoglobin 10.1 g/dl (12.0-16.0); Mean Corpuscular HGB Conc 31 g/dl (31-36); Mean Corpuscular Hemoglobin 23 pg (27-31); Mean Platelet Volume 7 um3 (7.4-10.4); Red Blood Count 4.41 10^6/ul (4.0-5.4); Red Cell Distribution Width 18 % (10.5-15); White Blood Count 12.8 10^3/ul (3.5-10.8)
[2017-03-26 06:57] LABS: Comments Flag Yes; Mean Corpuscular Volume 74 fL (80-97)
[2017-03-26] MEDS ORDERED: GuaiFENesin DM* 5 ML UDC PO PRN (10:06)
[2017-03-26] MEDS ORDERED: Benzonatate CAP* 100 MG PO PRN (10:06)
[2017-03-26] MEDS: Multivitamins/Minerals TAB PO SCH (11:05)
[2017-03-26] MEDS: Zinc Sulfate CAP* 220 MG PO SCH (11:05)
[2017-03-26] MEDS: Cholecalciferol TAB* 1000 UNITS PO SCH (11:05)
[2017-03-26] MEDS: Senna TAB PO SCH (11:05)
[2017-03-26] MEDS: Venlafaxine EXT RELEASE CAP* 75 MG PO SCH (11:06)
[2017-03-26] MEDS: Oxybutynin XL TAB* 5 MG PO SCH (11:06)
[2017-03-26] MEDS: Docusate CAP* 100 MG PO SCH (11:07)
[2017-03-26] MEDS: BIOTIN 1000 MCG PO SCH (11:26)
[2017-03-26 15:47] VITALS: BP 118/76
[2017-03-26] MEDS: cefTRIAXone VIAL(*) 1,000 MG in NS 0.9% 50 ML* 50 ML IVPB SCH (16:17)
[2017-03-26] MEDS: Acetic Acid 0.25%* 250 ML BTL SCH (16:36)
--- NOTE | 2017-03-26 16:41 | DS ---
DATE OF ADMISSION: 03/24/2017. DATE OF DISCHARGE: 03/26/2017. ADMISSION DIAGNOSIS: Bilateral pneumonia. SECONDARY DIAGNOSES: Multiple sclerosis, neurogenic bladder, depression, constipation, osteomyelitis. DISCHARGE DIAGNOSES: Bilateral pneumonia, multiple sclerosis, neurogenic bladder, depression, constipation, osteomyelitis. HOSPITAL COURSE: This patient is a 66-year-old woman who presented to [facility] with a chief complaint of cough and sore throat. The patient was also found to have a significantly elevated white count. Chest CT showed bilateral lower lobe infiltrates. The patient was admitted and placed on Rocephin and Zithromax. The patient dramatically improved over the next 48 hours. Her white count came down to just 12,000 and her sore throat improved, as well as her cough. The patient was stable for [facility]2017 with close follow-up with her PCP. PHYSICAL EXAMINATION ON THE DATE OF DISCHARGE: Vital Signs: T-max 98.5, heart rate 99 beats per minute, respiratory rate 16 breaths per minute, pulse ox 95 percent on room air, blood pressure 118/76. HEENT: Normocephalic, atraumatic. Pupils equal, round and reactive to light. Moist mucus membranes. Neck: Supple. No JVD, bruits, palpable thyroid, or lymphadenopathy. Chest: Clear to auscultation and percussion bilaterally. Cardiovascular: S1, S2 appreciated. Abdomen: Positive bowel sounds in all four quadrants. Soft, nontender, nondistended. Extremities: Bilateral contracted lower extremities. No cyanosis, clubbing or edema. +2 peripheral pulses. Neuro: Alert and oriented times three. Unable to completely move her lower extremities. Skin: No rashes or abnormalities. STUDIES DONE WHILE IN THE HOSPITAL: 1. Chest x-ray, 03/24/2017: No active cardiopulmonary disease. 2. Neck CT, 03/24/2017: Impression: Limited study. No loculated fluid collection to suggest abscess. Pleural thickening along the right lung apex. 3. Chest CT, 03/24/2017: Impression: Small dependent bilateral lower lobe infiltrates. DISCHARGE MEDICATIONS: 1. Ceftin 500 mg twice daily for 7 more days. 2. Zithromax 250 mg p.o. for 3 more days. 3. Cepacol 3 mg daily as needed. 4. Magnesium Citrate 60 cc once as needed. 5. Dulcolax suppository 10 mg p.o. daily as needed. 6. Tylenol 650 mg p.o. q.6 hours as needed. 7. Tylenol suppositories 650 mg p.r. q.6 hours as needed. 8. Tramadol 50 mg every 8 hours as needed. 9. Magnesium Hydroxide 30 cc daily as needed. 10. Lactulose 60 cc daily as needed. 11. Zinc Sulfate capsule 220 mg daily. 12. Nutritional supplement Ensure one can p.o. twice daily. 13. MiraLax 17 gm at bedtime. 14. Senokot one tab twice daily. 15. Multivitamin one tablet daily. 16. Biotin 1000 mcg daily. 17. Effexor XR 225 mg daily. 18. Cholecalciferol 2000 units daily. 19. Oxybutynin 50 mg daily. 20. Acetic acid 30 cc daily. 21. Mirtazapine 7.5 mg at bedtime. 22. Lorazepam 1 mg at bedtime as needed. 23. Robitussin DM 10 cc every 4 hours as needed. 24. Docusate 100 mg twice a day as needed. 25. Tessalon Perles 200 mg three times a day as needed. DISCHARGE PLAN: The patient will be discharged back to [facility]. The patient should complete the entire course of antibiotics. The patient should return to the ED if symptoms recur. Over 50 minutes was spent on this discharge, more than 30 minutes which were spent in evaluation, counseling, and coordination of care. Please note that the patient's Effexor was shown to be 75 mg daily and 150 mg daily on the information from Isak and this should be clarified that this is the correct dosing. CC: Isak Kelly * [id number]/[facility] #: [id number] [facility]PITALVannessa
== END 2017-03-26 17:32 | DRG 194 ==
LOC: ED 11:28 → MED 18:14
PROVIDERS: ADMIT Hospitalist; ATTEND Internal Medicine
DX: J18.9 Pneumonia, unspecified organism (principal); M86.60 Other chronic osteomyelitis, unspecified site; L89.159 Pressure ulcer of sacral region, unspecified stage; G35 Multiple sclerosis; N31.9 Neuromuscular dysfunction of bladder, unspecified; F32.9 Major depressive disorder, single episode, unspecified; K59.00 Constipation, unspecified; Z87.440 Personal history of urinary (tract) infections; Z87.442 Personal history of urinary calculi; Z93.3 Colostomy status; Z88.5 Allergy status to narcotic agent; Z88.8 Allergy status to other drugs, medicaments and biological substances; Z83.3 Family history of diabetes mellitus; Z82.49 Family history of ischemic heart disease and other diseases of the circulatory system; Z86.14 Personal history of Methicillin resistant Staphylococcus aureus infection; R40.2412 Glasgow coma scale score 13-15, at arrival to emergency department; Z74.01 Bed confinement status
CPT/HCPCS: 36415; 70491; 71010; 71250; 80048; 80053; 83605; 85025; 85610; 86140; 87040; 87070; 87077; 87186; 87205; 87502; 87651; 87899; 94760; A9270-GY; J0456; J0696; J1644; Q9967

== ENCOUNTER 2017-05-23 21:36 | Emergency (ER) | payer MEDICARE, MEDICAID ==
[2017-05-23] MEDS ORDERED: NS 0.9% 1000 ML* 1,000 ML IV ONE (21:55)
[2017-05-23] MEDS ORDERED: Levofloxacin 500 MG IVPREMIX(* 500 MG/100 ML BAG IVPB ONE (22:21)
--- NOTE | 2017-05-23 22:55 | ED ---
Rossnaa Wells Alfonso, scribed for Ramiro Mullins MD on 05/23/17 at 2239 . GI/ HPI - HPI Summary HPI Summary: This patient is a 66 year old female BIBA to [facility] c/o nausea since yesterday. She was diagnosed with a UTI yesterday and prescribed Macrodantin. She reports the nausea and a decreased appetite is secondary to beginning her abx course. She rates the pain 7/10 in severity. Sx aggravated by movement and alleviated by nothing. The patient denies vomiting. - History of Current Complaint Chief Complaint: EDNauseaVomitDiarrh Time Seen by Provider: 05/23/17 22:17 Stated Complaint: POSSIBLE UTI Hx Obtained From: Patient Onset/Duration: Started Hours Ago - Yesterday, Still Present Timing: Constant, Lasting Hours - Yesterday Severity: Moderate Current Severity: Moderate Pain Intensity: 7 Associated Signs and Symptoms: Positive: Nausea, Change in Appetite - Decreased appetite, UTI Symptoms - Diagnosed with a UTI yesterday. Negative: Vomiting Aggravating Factor(s): Movement Alleviating Factor(s): Nothing - Additional Pertinent History Primary Care Physician: SHIRLEY - Allergy/Home Medications Allergies/Adverse Reactions: Allergies Allergy/AdvReac Type Severity Reaction Status Date / Time CI Pigment Blue 63 Allergy Unknown Verified 05/23/17 22:02 [From Cymbalta] Reaction Details Duloxetine [From Cymbalta] Allergy Unknown Verified 05/23/17 22:02 Reaction Details Morphine Allergy Unknown Verified 05/23/17 22:02 Reaction Details Oxycodone [From Percocet] Allergy Unknown Verified 05/23/17 22:02 Reaction Details PMH/Surg Hx/FS Hx/Imm Hx Endocrine/Hematology History: Reports: Hx Anemia Denies: Hx Anticoagulant Therapy, Hx Blood Disorders, Hx Blood Transfusions, Hx Bone Marrow Disease, Hx Diabetes, Hx Systemic Lupus Erythematosus, Hx Sickle Cell Disease, Hx Thyroid Disease, Hx Unexplained Bleeding, Other Endocrine/ Hematological Disorders Cardiovascular History: Denies: Hx Aneurysm, Hx Angina, Hx Angioplasty, Hx Auto Implanted Cardiovert Defib, Hx Cardiac Arrest, Hx Cardiomegaly, Hx Congenital Heart Disease, Hx Congestive Heart Failure, Hx Coronary Artery Disease, Hx Deep Vein Thrombosis, Hx Hypercholesterolemia, Hx Hypotension, Hx Hypertension, Hx Pacemaker/ICD, Hx Peripheral Vascular Disease, Hx Rheumatic Fever, Hx Syncope, Hx Valvular Heart Disease, Other Cardiovascular Problems/Disorders Respiratory History: Denies: Hx Asthma, Hx Bronchopulmonary Dysplasia, Hx Chronic Bronchitis, Hx Chronic Obstructive Pulmonary Disease (COPD), Hx Cystic Fibrosis, Hx Lung Cancer , Hx Pleural Effusion, Hx Pneumonia, Hx Pulmonary Edema, Hx Pulmonary Embolism, Hx Seasonal Allergies, Hx Sleep Apnea, Other Respiratory Problems/Disorders GI History: Reports: Hx Ileostomy - colostomy for buttocks wounds, Other GI Disorders - diverting colostomy Denies: Hx Cirrhosis, Hx Crohn's Disease, Hx Diverticulosis, Hx Gall Bladder Disease, Hx Gastroesophageal Reflux Disease, Hx Gastrointestinal Bleed, Hx Hiatal Hernia, Hx Irritable Bowel, Hx Jaundice, Hx Obstructive Bowel, Hx Pyloric Stenosis, Hx Ulcer History: Reports: Hx Kidney Stones, Hx Renal Disease - BAY D/T MS AND LACK OF MOBILITY, Other Problems/Disorders - frequent UTIs has indwelling bay Denies: Hx Acute Renal Failure, Hx Benign Prostatic Hyperplasia, Hx Chronic Renal Failure, Hx Dialysis, Hx Kidney Infection Musculoskeletal History: Reports: Other Musculoskeletal History - contractures of LE's, MS, Chronic Osteomyelitis Denies: Hx Arthritis, Hx Back Problems, Hx Bursitis, Hx Congenital Bone Abnormalities, Hx Fibromyalgia, Hx Gout, Hx Orthopedic Injury, Hx Osteoporosis, Hx Scoliosis, Hx Tendonitis Sensory History: Reports: Hx Contacts or Glasses Denies: Hx Cataracts, Hx Eye Injury, Hx Eye Prosthesis, Hx Glaucoma, Hx Macular Degeneration, Hx Vision Problem, Hx Deafness, Hx Hearing Aid Opthamlomology History: Reports: Hx Contacts or Glasses Denies: Hx Cataracts, Hx Eye Injury, Hx Eye Prosthesis, Hx Glaucoma, Hx Macular Degeneration, Hx Vision Problem Neurological History: Reports: Other Neuro Impairments/Disorders - MS Denies: Hx Dementia, Hx Developmental Delay, Hx Headaches, Hx Migraine, Hx Seizures, Hx Spinal Cord Injury, Hx Transient Ischemic Attacks (TIA) Psychiatric History: Reports: Hx Depression Denies: Hx Anxiety, Hx Attention Deficit Hyperactivity Disorder, Hx Autism, Hx Eating Disorder, Hx Oppositional Kimble Disorder, Hx Panic Disorder, Hx Post Traumatic Stress Disorder, Hx Inpatient Treatment, Hx Community Mental Health Tx, Hx Schizophrenia, Hx Bipolar Disorder, Hx Suicide Attempt, Hx of Violent Episodes Against Others, Hx Substance Abuse, Other Psychiatric Issues/ Disorders - Surgical History Surgery Procedure, Year, and Place: 2010 at [place]-colostomy placement for non healing buttock wounds, , Appendectomy, Cholecystectomy Hx Anesthesia Reactions: No - Immunization History Date of Tetanus Vaccine: up to date Infectious Disease History: Yes Infectious Disease History: Reports: Hx of Known/Suspected MRSA - MRSA in sacral wound per pt. Denies: Hx Clostridium Difficile, Hx Hepatitis, Hx Human Immunodeficiency Virus (HIV), Hx Shingles, Hx Tuberculosis, Traveled Outside the [place] in Last 30 Days - Family History Known Family History: Positive: Diabetes - father Negative: Other - negative for MS Family History: R & n/C - Social History Alcohol Use: None Hx Substance Use: No Substance Use Type: Reports: None Hx Tobacco Use: No Smoking Status (MU): Never Smoked Tobacco Review of Systems Positive: Nausea. Negative: Vomiting Positive: other - UTI diagnosis yesterday Neurological: Other - Positive decrease in appetite All Other Systems Reviewed And Are Negative: Yes Physical Exam Triage Information Reviewed: Yes Vital Signs On Initial Exam: Initial Vitals Temp Pulse Resp BP Pulse Ox 100.7 F 122 16 119/68 93 05/23/17 21:40 05/23/17 21:40 05/23/17 21:40 05/23/17 21:40 05/23/17 21:40 Vital Signs Reviewed: Yes Appearance: Positive: No Pain Distress, Thin Skin: Positive: Warm Head/Face: Positive: Normal Head/Face Inspection Eyes: Positive: DOUG ENT: Positive: Hearing grossly normal Neck: Positive: Supple Respiratory/Lung Sounds: Positive: Clear to Auscultation, Breath Sounds Present Cardiovascular: Positive: RRR Abdomen Description: Positive: Nontender, No Organomegaly, Soft Bowel Sounds: Positive: Present Musculoskeletal: Positive: Strength/ROM Intact Neurological: Positive: Alert, Oriented to Person Place, Time Psychiatric: Positive: Affect/Mood Appropriate Diagnostics - Vital Signs Vital Signs Temp Pulse Resp BP Pulse Ox 05/23/17 21:55 100.7 F 122 16 119/68 93 05/23/17 21:44 123 91 05/23/17 21:43 119/68 05/23/17 21:40 100.7 F 122 16 119/68 93 - Laboratory Result Diagrams: 05/23/17 23:00 05/23/17 23:00 Lab Statement: Any lab studies that have been ordered have been reviewed, and results considered in the medical decision making process. Re-Evaluation - Re-Evaluation First Eval Change: Improved - results d/w pt. urine cx 2 days ago resistant to macrobid sensitive to levaquin, will switch to same, pt feels better tolerating po GIGU Course/Dx - Diagnoses Provider Diagnoses: UTI (urinary tract infection) Discharge - Discharge Plan Condition: Stable Disposition: HOME Prescriptions: Levofloxacin TAB* [Levaquin TAB*] 250 mg PO DAILY #7 tab Patient Education Materials: Urinary Tract Infection in Women (ED) Referrals: Mee Ricketts MD [Primary Care Provider] - 7 Days The documentation as recorded by the Rossana castellanos Alfonso accurately reflects the service I personally performed and the decisions made by me, Ramiro Mullins MD.
[2017-05-23 23:31] LABS: Hematocrit 33 % (35-47); Hemoglobin 10.2 g/dl (12.0-16.0); Mean Corpuscular HGB Conc 31 g/dl (31-36); Mean Corpuscular Hemoglobin 22 pg (27-31); Mean Platelet Volume 7 um3 (7.4-10.4); Red Blood Count 4.65 10^6/ul (4.0-5.4); Red Cell Distribution Width 17 % (10.5-15); White Blood Count 11.8 10^3/ul (3.5-10.8)
[2017-05-23 23:33] LABS: Comments Flag Yes; Mean Corpuscular Volume 71 fL (80-97)
[2017-05-23 23:41] LABS: Albumin 3.4 g/dL (3.2-5.2); BUN/Creatinine Ratio 19.6 (8-20); C Reactive Protein 155.98 mg/L (< 5.00); Calcium 9.4 mg/dL (8.6-10.3); EGFR African American 173.7 (>60); EGFR Non-African American 135.1 (>60); Globulin 4.7 g/dL (2-4); Potassium 4.1 mmol/L (3.5-5.0); Total Bilirubin 0.3 mg/dL (0.2-1.0); Total Protein 8.1 g/dL (6.4-8.9)
[2017-05-24 02:28] VITALS: BP 115/61
== END 2017-05-24 02:25 | disposition home or self-care (01) ==
LOC: ED 21:36
DX: N39.0 Urinary tract infection, site not specified (principal); Z88.5 Allergy status to narcotic agent
CPT/HCPCS: 36415; 80053; 83605; 83690; 83735; 85025; 86140; 96360; 96374; 99285; J1956

== ENCOUNTER 2017-08-25 12:10 | Inpatient (IN) | payer MEDICARE, MEDICAID ==
--- NOTE | 2017-08-25 13:34 | RAD ---
HISTORY: Weakness, pneumonia COMPARISONS: March 24, 2017 VIEWS: 4: Frontal dual-energy and lateral views of the chest. FINDINGS: CARDIOMEDIASTINAL SILHOUETTE: The cardiomediastinal silhouette is normal. NAYA: The naya are normal. PLEURA: The costophrenic angles are sharp. No pleural abnormalities are noted. LUNG PARENCHYMA: The lung volumes are low. The lungs are clear. ABDOMEN: The upper abdomen is clear. There is no subphrenic gas. BONES AND SOFT TISSUES: No bone or soft tissue abnormalities are noted. OTHER: None. IMPRESSION: LOW LUNG VOLUMES. NO ACTIVE CARDIOPULMONARY DISEASE.
[2017-08-25 14:39] LABS: Comments Flag Yes; Hematocrit 37 % (35-47); Hemoglobin 11.6 g/dl (12.0-16.0); Mean Corpuscular HGB Conc 31 g/dl (31-36); Mean Corpuscular Hemoglobin 23 pg (27-31); Mean Corpuscular Volume 73 fL (80-97); Mean Platelet Volume 7 um3 (7.4-10.4); Red Blood Count 5.13 10^6/ul (4.0-5.4); Red Cell Distribution Width 19 % (10.5-15); White Blood Count 15.9 10^3/ul (3.5-10.8)
[2017-08-25 15:03] LABS: Albumin 3.5 g/dL (3.2-5.2); BUN/Creatinine Ratio 38.3 (8-20); C Reactive Protein 124.06 mg/L (< 5.00); Calcium 9.6 mg/dL (8.6-10.3); EGFR African American 169.5 (>60); EGFR Non-African American 131.8 (>60); Globulin 4.8 g/dL (2-4); Potassium 3.8 mmol/L (3.5-5.0); Total Bilirubin 0.2 mg/dL (0.2-1.0); Total Protein 8.3 g/dL (6.4-8.9)
[2017-08-25 16:15] LABS: Urine Bacteria 1+ (Absent); Urine Bilirubin Negative (Negative); Urine Glucose Negative (Negative); Urine Nitrite Negative (Negative)
--- NOTE | 2017-08-25 16:28 | ED ---
Unruly Wells Benjamin, scribed for Jah Payton MD on 08/25/17 at 1456 . GI/ HPI - HPI Summary HPI Summary: 66yo female c/o UTI like symptoms. Pt reports pelvic pain and burning with urination. Pt has a urinary catheter and colonostomy bag. Pt says her urine also is foul smelling. Pt has hx of MS. FHx of DM and NC. - History of Current Complaint Chief Complaint: EDAbdPain Time Seen by Provider: 08/25/17 14:35 Stated Complaint: UTI-LIKE SYMPTOMS Hx Obtained From: Patient Onset/Duration: Started Hours Ago, Still Present Timing: Constant Severity: Moderate Current Severity: Moderate Pain Intensity: 9 Location of Pain: Suprapubic Pain Characteristics: Burning Associated Signs and Symptoms: Positive: Dysuria - Additional Pertinent History Primary Care Physician: SHIRLEY - Allergy/Home Medications Allergies/Adverse Reactions: Allergies Allergy/AdvReac Type Severity Reaction Status Date / Time CI Pigment Blue 63 Allergy Unknown Verified 05/23/17 22:02 [From Cymbalta] Reaction Details Duloxetine [From Cymbalta] Allergy Unknown Verified 05/23/17 22:02 Reaction Details Morphine Allergy Unknown Verified 05/23/17 22:02 Reaction Details Oxycodone [From Percocet] Allergy Unknown Verified 05/23/17 22:02 Reaction Details PMH/Surg Hx/FS Hx/Imm Hx Endocrine/Hematology History: Reports: Hx Anemia Denies: Hx Anticoagulant Therapy, Hx Blood Disorders, Hx Blood Transfusions, Hx Bone Marrow Disease, Hx Diabetes, Hx Systemic Lupus Erythematosus, Hx Sickle Cell Disease, Hx Thyroid Disease, Hx Unexplained Bleeding, Other Endocrine/ Hematological Disorders Cardiovascular History: Denies: Hx Aneurysm, Hx Angina, Hx Angioplasty, Hx Auto Implanted Cardiovert Defib, Hx Cardiac Arrest, Hx Cardiomegaly, Hx Congenital Heart Disease, Hx Congestive Heart Failure, Hx Coronary Artery Disease, Hx Deep Vein Thrombosis, Hx Hypercholesterolemia, Hx Hypotension, Hx Hypertension, Hx Pacemaker/ICD, Hx Peripheral Vascular Disease, Hx Rheumatic Fever, Hx Syncope, Hx Valvular Heart Disease, Other Cardiovascular Problems/Disorders Respiratory History: Denies: Hx Asthma, Hx Bronchopulmonary Dysplasia, Hx Chronic Bronchitis, Hx Chronic Obstructive Pulmonary Disease (COPD), Hx Cystic Fibrosis, Hx Lung Cancer , Hx Pleural Effusion, Hx Pneumonia, Hx Pulmonary Edema, Hx Pulmonary Embolism, Hx Seasonal Allergies, Hx Sleep Apnea, Other Respiratory Problems/Disorders GI History: Reports: Hx Ileostomy - colostomy for buttocks wounds, Other GI Disorders - diverting colostomy Denies: Hx Cirrhosis, Hx Crohn's Disease, Hx Diverticulosis, Hx Gall Bladder Disease, Hx Gastroesophageal Reflux Disease, Hx Gastrointestinal Bleed, Hx Hiatal Hernia, Hx Irritable Bowel, Hx Jaundice, Hx Obstructive Bowel, Hx Pyloric Stenosis, Hx Ulcer History: Reports: Hx Kidney Stones, Hx Renal Disease - BAY D/T MS AND LACK OF MOBILITY, Other Problems/Disorders - frequent UTIs has indwelling bay Denies: Hx Acute Renal Failure, Hx Benign Prostatic Hyperplasia, Hx Chronic Renal Failure, Hx Dialysis, Hx Kidney Infection Musculoskeletal History: Reports: Other Musculoskeletal History - contractures of LE's, MS, Chronic Osteomyelitis Denies: Hx Arthritis, Hx Back Problems, Hx Bursitis, Hx Congenital Bone Abnormalities, Hx Fibromyalgia, Hx Gout, Hx Orthopedic Injury, Hx Osteoporosis, Hx Scoliosis, Hx Tendonitis Sensory History: Reports: Hx Contacts or Glasses Denies: Hx Cataracts, Hx Eye Injury, Hx Eye Prosthesis, Hx Glaucoma, Hx Macular Degeneration, Hx Vision Problem, Hx Deafness, Hx Hearing Aid Opthamlomology History: Reports: Hx Contacts or Glasses Denies: Hx Cataracts, Hx Eye Injury, Hx Eye Prosthesis, Hx Glaucoma, Hx Macular Degeneration, Hx Vision Problem Neurological History: Reports: Other Neuro Impairments/Disorders - MS Denies: Hx Dementia, Hx Developmental Delay, Hx Headaches, Hx Migraine, Hx Seizures, Hx Spinal Cord Injury, Hx Transient Ischemic Attacks (TIA) Psychiatric History: Reports: Hx Depression Denies: Hx Anxiety, Hx Attention Deficit Hyperactivity Disorder, Hx Autism, Hx Eating Disorder, Hx Oppositional Sawyer Disorder, Hx Panic Disorder, Hx Post Traumatic Stress Disorder, Hx Inpatient Treatment, Hx Community Mental Health Tx, Hx Schizophrenia, Hx Bipolar Disorder, Hx Suicide Attempt, Hx of Violent Episodes Against Others, Hx Substance Abuse, Other Psychiatric Issues/ Disorders - Surgical History Surgery Procedure, Year, and Place: 2009 at [place]-colostomy placement for non healing buttock wounds, , Appendectomy, Cholecystectomy Hx Anesthesia Reactions: No - Immunization History Date of Tetanus Vaccine: up to date Infectious Disease History: Yes Infectious Disease History: Reports: Hx of Known/Suspected MRSA - MRSA in sacral wound per pt. Denies: Hx Clostridium Difficile, Hx Hepatitis, Hx Human Immunodeficiency Virus (HIV), Hx Shingles, Hx Tuberculosis, Traveled Outside the [place] in Last 30 Days - Family History Known Family History: Positive: Diabetes - father Negative: Other - negative for MS Family History: R & n/C - Social History Occupation: Retired Lives: Alone Alcohol Use: None Hx Substance Use: No Substance Use Type: Reports: None Hx Tobacco Use: No Smoking Status (MU): Never Smoked Tobacco Review of Systems Positive: dysuria Positive: Other - decubitus All Other Systems Reviewed And Are Negative: Yes Physical Exam Triage Information Reviewed: Yes Vital Signs On Initial Exam: Initial Vitals Temp Pulse Resp BP Pulse Ox 96.8 F 102 19 107/65 97 08/25/17 12:46 08/25/17 12:46 08/25/17 12:46 08/25/17 12:46 08/25/17 12:46 Vital Signs Reviewed: Yes Appearance: Positive: Ill-Appearing - chronic with leg contractures and MS Skin: Positive: Warm Head/Face: Positive: Normal Head/Face Inspection ENT: Positive: Normal ENT inspection Neck: Positive: Supple, Nontender Respiratory/Lung Sounds: Positive: Clear to Auscultation, Breath Sounds Present Cardiovascular: Positive: RRR. Negative: Murmur Abdomen Description: Positive: Nontender Pelvic Exam: Positive: other - She has decubitus ulcer sacral area with cellulitis into the perineal area, with erythema to vulvar area. Musculoskeletal: Positive: Other - contractures the lower extremities Neurological: Positive: Alert, Oriented to Person Place, Time Psychiatric: Positive: Normal - Parshall Coma Scale Best Eye Response: 4 - Spontaneous Best Motor Response: 6 - Obeys Commands Best Verbal Response: 5 - Oriented Diagnostics - Vital Signs Vital Signs Temp Pulse Resp BP Pulse Ox 08/25/17 13:58 96.9 F 97 17 112/60 98 08/25/17 12:46 96.8 F 102 19 107/65 97 - Laboratory Lab Results: Lab Results 08/25/17 Range/Units 14:25 WBC 15.9 H (3.5-10.8) 10^3/ul RBC 5.13 (4.0-5.4) 10^6/ul Hgb 11.6 L (12.0-16.0) g/dl Hct 37 (35-47) % MCV 73 L (80-97) fL MCH 23 L (27-31) pg MCHC 31 (31-36) g/dl RDW 19 H (10.5-15) % Plt Count 549 H (150-450) 10^3/ul MPV 7 L (7.4-10.4) um3 Neut % (Auto) 71.8 (38-83) % Lymph % (Auto) 18.9 L (25-47) % [place] % (Auto) 6.9 (1-9) % Eos % (Auto) 1.8 (0-6) % Baso % (Auto) 0.6 (0-2) % Absolute Neuts (auto) 11.4 H (1.5-7.7) 10^3/ul Absolute Lymphs (auto) 3.0 (1.0-4.8) 10^3/ul Absolute Monos (auto) 1.1 H (0-0.8) 10^3/ul Absolute Eos (auto) 0.3 (0-0.6) 10^3/ul Absolute Basos (auto) 0.1 (0-0.2) 10^3/ul Absolute Nucleated RBC 0.01 10^3/ul Nucleated RBC % 0 Result Diagrams: 08/25/17 14:25 08/25/17 14:25 Lab Statement: Any lab studies that have been ordered have been reviewed, and results considered in the medical decision making process. GIGU Course/Dx - Course Course Of Treatment: Reviewed pt's list of medication and allergies. Blood pressure noted. 66 yr old wheelchair and bed bound with MS, chronic bay catheter, and decutitus ulcer and cellulitis to perineum. Admit for IV antibiotics. - Diagnoses Provider Diagnoses: Decubitus ulcer, Vulvar cellulitis, Cellulitis of left buttock - Physician Notifications Discussed Care Of Patient With: Ana Pascual Time Discussed With Above Provider: 16:15 Discharge - Discharge Plan Condition: Good Disposition: ADMITTED TO [facility] The documentation as recorded by the Unruly castellanos Benjamin accurately reflects the service I personally performed and the decisions made by me, Jah Payton MD.
[2017-08-25] MEDS ORDERED: Vancomycin(*) 1,000 MG VIAL IVPB SCH (17:00)
[2017-08-25] MEDS ORDERED: Vancomycin(*) 750 MG in NS 0.9% 250 ML* 250 ML IVPB ONE (17:00)
[2017-08-25] MEDS ORDERED: Ondansetron INJ* 2 MG/ML VIAL IV PRN (17:22)
[2017-08-25] MEDS ORDERED: fentaNYL* 50 MCG/ML 2 ML VIAL (100 MCG VIAL) IV SLOW PU PRN (17:23)
[2017-08-25] MEDS ORDERED: PROCHLORPERAZINE INJ 5 MG/ML 2 ML VIAL IV PRN (17:55)
[2017-08-25] MEDS ORDERED: Zosyn per Pharmacy* NOTE FOLLOW UP SCH (18:00)
[2017-08-25] MEDS: NS 0.9% 1000 ML* 1,000 ML IV SCH (19:35)
[2017-08-25] MEDS: Levofloxacin 500 MG IVPREMIX(* 500 MG/100 ML BAG IVPB SCH (21:08)
--- NOTE | 2017-08-25 21:24 | RAD ---
INDICATION: Nephrolithiasis, right back pain, urinary tract infection. COMPARISON: Comparison is made with a prior CT of the abdomen and pelvis from June 10, 2016. TECHNIQUE: A CT scan of the abdomen and pelvis was performed without intravenous or oral contrast. Contiguous axial sections were obtained from the lung bases through the symphysis pubis. Images were reconstructed in the coronal and sagittal planes. FINDINGS: The lung bases are clear. No pleural effusion is present. The liver and spleen are normal in size without significant focal abnormality on this noncontrast study. The patient is status post cholecystectomy. The pancreas appears to be within normal limits. The adrenal glands and kidneys are normal in size. No renal calculi or hydronephrosis is seen. There is a Borrego catheter present within the urinary bladder which is decompressed. The aorta is normal in caliber without significant calcific plaque. No significant enlarged retroperitoneal lymph nodes are seen. The stomach, small and large bowel appear nondistended. The patient is status post appendectomy by history. There is an ostomy in the left lower quadrant. There is a large parastomal hernia containing small bowel large bowel which is nondistended. This appears unchanged from the prior study. No free intraperitoneal air or fluid is seen. The lower portion of the sacrum appears dysraphic. There are bilateral decubitus ulcers right greater than left with sclerotic change in the posterior acetabulum and ischial tuberosities suspicious for chronic osteomyelitis. This appears similar to the prior study. The bony structures are very superficial located to the skin surface. IMPRESSION: 1. LARGE PARASTOMAL HERNIA, UNCHANGED. 2. BILATERAL DECUBITUS ULCERS WITH FINDINGS SUGGESTIVE OF CHRONIC OSTEOMYELITIS.
[2017-08-25] MEDS ORDERED: Polyethylene Glycol 3350* 17 GM PACKET PO PRN (22:21)
[2017-08-25] MEDS ORDERED: Bisacodyl SUPP* 10 MG SUPP PR PRN (22:21)
[2017-08-25] MEDS ORDERED: traMADol TAB* 50 MG PO PRN (22:21)
[2017-08-25] MEDS ORDERED: LORazepam TAB(*) 1 MG PO PRN (22:21)
[2017-08-25] MEDS ORDERED: Senna TAB PO PRN (22:21)
[2017-08-25] MEDS: ZOSYN 3.375 GM Q8H per EXTENDED INFUSION IVPB SCH ×2 (22:32)
[2017-08-25] MEDS ORDERED: Docusate CAP* 100 MG PO PRN (22:39)
[2017-08-25] MEDS: Heparin VIAL(*) 5000 UNITS/ML VIAL (FIVE THOUSAND) SUBCUT SCH (23:20)
--- NOTE | 2017-08-26 00:23 | HP ---
CC: Dr. Ricketts HISTORY AND PHYSICAL: DATE OF ADMISSION: 08/25/17 TIME OF EVALUATION: 5 p.m. PRIMARY CARE PROVIDER: Dr. Ricketts, at [facility]. CHIEF COMPLAINT: "I don't feel well." HISTORY OF PRESENT ILLNESS: Ms. Nation is a 66-year-old lady with a past medical history of multiple sclerosis, sacral decubitus with chronic osteomyelitis, depression, neurogenic bladder, constipatio n, history of nephrolithiasis, and recurrent UTIs, who presented to the emergency room with complain ts of body ache. The patient states that she knows her body and her disease well and usually when she feels that way, it means she has a urinary tract infection. She states that her urine has been foul smelling. Sh suzie had some genital burning. She had anorexia, some nausea, and today she started to have chills and body aches. She came to [facility] [place] [facility] with Dr. Loera and she states that she was told her wounds are doing better; still present, but making progress. As she wa s not feeling well, she requested to come to the emergency room for further evaluation. She denies fever, diarrhea, headaches, chest pain, shortness of breath, cough, palpitations or other complaints. PAST MEDICAL HISTORY: 1. Multiple sclerosis. 2. Neurogenic bladder with chronic Borrego. 3. Sacral decubitus with chronic osteomyelitis. 4. Depression. 5. Constipation. 6. Nephrolithiasis. 7. History of recurrent UTIs. 8. Status post history of colostomy. 9. Status post cholecystectomy. 10. Status post appendectomy. 11. Status post . 12. Status post right renal surgery, probably a stent done at [facility] 2 years ago. MEDICATIONS: Her medication list is not available at this time as the patient did not come with any records from [facility]. The list will be obtained and updated. ALLERGIES: To CYMBALTA, MORPHINE, and PERCOCET. The patient had unknown reactions. FAMILY HISTORY: Father had a history of diabetes. Sister and brother had a history of coronary art edilberto disease. SOCIAL HISTORY: No history of tobacco, alcohol or drug use. She resides at [facility]. Surrogate d ecision maker is her daughter, Sobeida Beavers, phone number [phone]. REVIEW OF SYSTEMS: A 14-point review of systems was performed and all the pertinent negatives and p ositive findings are in the HPI. PHYSICAL EXAMINATION GENERAL: The patient is a pleasant lady, lying in the ED stretcher, in no acute distress. VITAL SIGNS: Temperature 96.9, heart rate is 103, respiratory rate is 17, oxygen saturation 96% on room air, blood pressure is 112/60. HEENT: Pupils are equal. Dry mucous membranes. CHEST: Breath sounds bilaterally, with no added sounds. CVS: Normal S1, S2. Regular rate and rhythm. ABDOMEN: Soft, nontender, nondistended. Bowel sounds are present. There is right CVA tenderness. EXTREMITIES: Extremities are contracted, especially the lower extremities. She has a clean dressin g on her right hip area. NEUROLOGIC: She is alert, awake, and oriented x3. Able to move both upper extremities, but movemen t is limited on the lower extremities, with spasticity. DIAGNOSTIC STUDIES/LAB DATA: The patient had a CBC that showed WBC of 15.9, hemoglobin of 11.6, he matocrit of 37, platelets of 549, with 71% neutrophils. INR was 1.04. Chemistry showed a sodium of 134, potassium 3.8, chloride of 102, bicarb 23, BUN of 18, creatinine of 0.47, glucose of 109, lact ic acid of 1, calcium of 9.6. LFTs are normal. Troponin was 0. CRP is 124. Urinalysis showed 2+ protein, 3+ LE, 3+ wbc's, 3+ rbc's, with 1+ bacteria. Chest x-ray showed low lung volumes, but no active cardiopulmonary disease. ASSESSMENT AND PLAN: Mrs. Nation is a 66-year-old lady with a past medical history of multiple scler osis, neurogenic bladder with chronic Borrego, sacral decubitus, with chronic osteomyelitis, depressio n, recurrent UTIs, nephrolithiasis, that presented to the emergency room with complaints of genital burning, body aches, and malaise, suggestive of urinary tract infection. 1. Sepsis. The patient meet sepsis criteria on admission with tachycardia and leukocytosis. The s ource is probably a urinary tract infection. The patient's urinalysis is abnormal, but she does hav e a chronic Borrego. Her last urine culture from 07/02/17 grew proteus and Enterococcus, and the prot eus was resistant to Zosyn, but the Enterococcus was sensitive. Proteus was sensitive to levofloxac in. So, she is going to be treated with Zosyn and levofloxacin for now. Her last admission was in [place] for pneumonia, but she does not have respiratory symptoms at this time. Another possibility wo uld be her decubitus with chronic osteomyelitis. In the past, the patient was on chronic suppression with doxycycline, but at this point it appears that her wound is actually improving and, although n ot impossible, it does not seem to be the first source of infection at this point. She will be admitted to the medical floor. She will be treated with Zosyn and levofloxacin empirica lly for now and we are going to follow cultures. I am concerned with right flank pain. 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 She states she was seen by Urology at [facility] and had the procedure done that appears to have been a stent per her description. We will try to get records from [facility], but at this point she deserves a CT of the abdomen and pelvis without contrast to evaluate her right kidney . 2. Neurogenic bladder. We will continue Borrego. 3. Multiple sclerosis. We will resume her medications when confirmed. 4. DVT prophylaxis. The patient has a score of 2 on the DVT prophylaxis assessment guide and she w ill be started on subcutaneous heparin. 5. Code status is full. TIME SPENT: Approximately 60 minutes were spent on the patient's interview, medical records review, physical examination to complete admission. More than half of this time was spent [id number] wit h the patient in coordination of care. [id number]/[facility] #: [id number]
[2017-08-26] MEDS: CMCS:Melatonin (NF) 3 MG TAB PO SCH ×2 (00:44→21:17)
[2017-08-26] MEDS: ZOSYN 3.375 GM Q8H per EXTENDED INFUSION IVPB SCH ×4 (05:50→12:39)
[2017-08-26] MEDS: Heparin VIAL(*) 5000 UNITS/ML VIAL (FIVE THOUSAND) SUBCUT SCH ×3 (05:50→21:16)
[2017-08-26] MEDS: NS 0.9% 1000 ML* 1,000 ML IV SCH ×2 (06:54→21:13)
[2017-08-26 08:09] LABS: Hematocrit 35 % (35-47); Hemoglobin 10.9 g/dl (12.0-16.0); Mean Corpuscular HGB Conc 32 g/dl (31-36); Mean Corpuscular Hemoglobin 23 pg (27-31); Mean Platelet Volume 7 um3 (7.4-10.4); Red Blood Count 4.76 10^6/ul (4.0-5.4); Red Cell Distribution Width 20 % (10.5-15)
[2017-08-26 08:22] LABS: Calcium 8.3 mg/dL (8.6-10.3); Potassium 3.4 mmol/L (3.5-5.0)
[2017-08-26 08:26] LABS: Comments Flag Yes
[2017-08-26 08:27] LABS: Mean Corpuscular Volume 73 fL (80-97)
[2017-08-26] MEDS: Oxybutynin XL TAB* 5 MG PO SCH (08:40)
[2017-08-26] MEDS: Lactobacillus Acidophilu (GG)* 1 CAP CAP PO SCH (08:40)
[2017-08-26] MEDS: Venlafaxine EXT RELEASE CAP* 75 MG PO SCH (08:40)
[2017-08-26] MEDS: Docusate CAP* 100 MG PO SCH ×2 (08:41→21:17)
[2017-08-26] MEDS: Acetaminophen TAB* 325 MG PO PRN ×2 (08:55→17:02)
[2017-08-26] MEDS ORDERED: Venlafaxine ER (NF) 150 MG CAP.ER PO SCH (09:00)
[2017-08-26] MEDS: Nystatin TOP POWDER* 15 GM BTL TOPICAL SCH ×3 (09:54→21:16)
--- NOTE | 2017-08-26 13:45 | PN ---
Subjective Date of Service: 08/26/17 Interval History: HOSPITALIST PROGRESS NOTE Patient seen and examined at bedside. She doesn't feels well today. C/o weakness, fatigue, and nausea. Pain is less intense. Family History: Unchanged from Admission Social History: Unchanged from Admission Past Medical History: Unchanged from Admission Objective Active Medications: Acetaminophen (Tylenol Tab*) 650 mg PO Q6H PRN PRN Reason: pain/fever Last Admin: 08/26/17 08:55 Dose: 650 mg Bisacodyl (Dulcolax Supp*) 10 mg NV DAILY PRN PRN Reason: CONSTIPATION Docusate Sodium (Colace Cap*) 100 mg PO BID [facility] Last Admin: 08/26/17 08:41 Dose: 100 mg Docusate Sodium (Colace Cap*) 100 mg PO BID PRN PRN Reason: CONSTIPATION Fentanyl Citrate (Fentanyl*) 25 mcg IV SLOW PU Q4H PRN PRN Reason: SEVERE PAIN Heparin Sodium (Porcine) (Heparin Vial(*)) 5,000 units SUBCUT Q8HR [facility] Last Admin: 08/26/17 12:38 Dose: 5,000 units Sodium Chloride (Ns 0.9% 1000 Ml*) 1,000 mls @ 100 mls/hr IV PER RATE [facility] Last Admin: 08/26/17 06:54 Dose: 100 mls/hr Levofloxacin/Dextrose (Levaquin 500 Mg Ivpremix(*)) 500 mg in 100 mls @ 100 mls /hr IVPB Q24H [facility] Last Admin: 08/25/17 21:08 Dose: 100 mls/hr Piperacillin Sod/Tazobactam (Sod 3.375 gm/ Sodium Chloride) 100 mls @ 25 mls/ hr IVPB Q8H [facility] Last Admin: 08/26/17 12:39 Dose: 25 mls/hr Lactobacillus Rhamnosus (Culturelle*) 1 cap PO DAILY [facility] Last Admin: 08/26/17 08:40 Dose: 1 cap Lorazepam (Ativan Tab(*)) 1 mg PO BEDTIME PRN PRN Reason: ANXIETY Melatonin (Melatonin (Nf)) 3 mg PO BEDTIME [facility] Last Admin: 08/26/17 00:44 Dose: 3 mg Mirtazapine (Remeron Tab*) 7.5 mg PO BEDTIME [facility] Nystatin (Nystatin Top Powder*) 1 applic TOPICAL TID [facility] Last Admin: 08/26/17 12:38 Dose: 1 applic Ondansetron HCl (Zofran Inj*) 4 mg IV Q6H PRN PRN Reason: NAUSEA Oxybutynin Chloride (Ditropan Xl Tab*) 15 mg PO DAILY [facility] Last Admin: 08/26/17 08:40 Dose: 15 mg Pharmacy Consult (Zosyn Per Pharmacy*) 1 note FOLLOW UP .ZOSYN PER PHARMACY [facility] Polyethylene Glycol/Electrolytes (Miralax*) 17 gm PO BEDTIME PRN PRN Reason: constipation Prochlorperazine Edisylate (Compazine Inj*) 5 mg IV Q6H PRN PRN Reason: NAUSEA/VOMITING Senna (Senokot Tab*) 2 tab PO BID PRN PRN Reason: constipation Tramadol HCl (Ultram*) 50 mg PO Q8HR PRN PRN Reason: PAIN Venlafaxine HCl (Effexor Xr Cap*) 225 mg PO DAILY [facility] Last Admin: 08/26/17 08:40 Dose: 225 mg Vital Signs 08/26/17 08/26/17 08/26/17 08:00 09:09 11:38 Temperature 98.0 F Pulse Rate 79 Respiratory 18 18 21 Rate Blood Pressure 118/61 (mmHg) O2 Sat by Pulse 100 Oximetry Oxygen Devices in Use Now: None Appearance: Elderly lady lying in bed in [facility]. Eyes: No Scleral Icterus Ears/Nose/Mouth/Throat: Mucous Membranes Moist Neck: Trachea Midline Respiratory: Symmetrical Chest Expansion and Respiratory Effort, Clear to Auscultation Cardiovascular: RRR - Normal S1 and S2 Abdominal: NL Sounds; No Tenderness; No Distention Extremities: - - Contracted lower extremities Skin: - - Bilateral buttocks decubiti with CDI Neurological: Alert and Oriented x 3 Lines/Tubes/Other Access: Clean, Dry and Intact Borrego, Clean, Dry and Intact Peripheral IV Nutrition: Taking PO's Result Diagrams: 08/26/17 06:43 08/26/17 06:43 Assess/Plan/Problems-Billing Assessment: Mrs. Nation is a 66yo F with PMH of MS, neurogenic bladder with chronic Borrego, sacral decubitus with chronic osteomyelitis, depression, nephrolithiasis, recurrent UTIs, who presented to ED with c/o malaise, found to have sepsis secondary to catheter associated UTI. - Patient Problems (1) Sepsis Comment: - Met sepsis criteria on admission with tachycardia and leukocytosis. - Source is UTI. (2) UTI (urinary tract infection) Comment: - Borrego catheter associated, present on admission. - Urine culture growing Proteus. - Continue Zosyn and Levaquin. - ID consult requested. - CT abdome/pelvis was negative for nephrolithiasis or hydronephrosis. (3) Sacral decubitus ulcer, stage IV Comment: - Present on admission. - Seems to be better than on prior admissions. (4) Neurogenic bladder Comment: - Change Borrego. (5) DVT prophylaxis Comment: - SQ heparin. (6) Full code status Status and Disposition: Inpatient for management of sepsis and UTI requiring >48h for stabilization.
[2017-08-26] MEDS: Levofloxacin 500 MG IVPREMIX(* 500 MG/100 ML BAG IVPB SCH (21:14)
[2017-08-26] MEDS: Mirtazapine TAB* 15 MG PO SCH (21:17)
--- NOTE | 2017-08-26 21:46 | CONS ---
CONSULTATION REPORT: DATE OF CONSULT: 08/26/17 REQUESTING PHYSICIAN: Dr. Gaitan. CONSULTING SERVICE: Infectious Disease. REASON FOR CONSULTATION: Urinary tract infection. IMPRESSION: 1. Sepsis was present on admission, encephalopathy present on admission. 2. Pyelonephritis due to proteus urinary tract infection, previously she come proteus that was extensively drug resistant except for fluoroquinolones and gentamicin. She is improving with fluid hydration, Zosyn, and Levaquin. 3. There is a large right decubitus ulcer with mild surrounding erythema and cellulitis. 4. Leukocytosis. 5. Multiple sclerosis with lower extremity spasticity. 6. Chronic indwelling Borrego catheter. RECOMMENDATION: Continue Levaquin. We will stop Zosyn, IV hydration as you have done. A wound care consult for her decubitus ulceration. HISTORY OF PRESENT ILLNESS: This is a 66-year-old woman with multiple sclerosis , neurogenic bladder, chronic Borrego catheter, admitted with malaise, lightheadedness, confusion. She was brought from [facility] with complaints of the same as well as fever. She was febrile when she got here as well as tachycardic. Blood cultures were taken and they are negative. Urine culture was taken, it was growing a 100,000 colonies of proteus. She has a Borrego catheter, which was changed a couple of weeks ago. She felt there have been some leakage at the insertion site however. On admission, white count was 16 and down to 12 today. She is feeling more with it. She knows where she is, feeling less confused. Her visions were turned. She has this every few months and knows when she is about to get sick because of those symptoms. She has been followed for decubitus ulcer in her right sacrum, which is intermittently painful. PAST MEDICAL HISTORY: 1. Multiple sclerosis with neurogenic bladder. 2. Chronic indwelling Borrego catheter. 3. Sacral decubitus ulceration. 4. Depression. 5. Constipation. 6. History of nephrolithiasis. 7. Urinary tract infection. 8. Status post colostomy. 9. Status post cholecystectomy. 10. Status post appendectomy. 11. Status post . 12. Status post right ureteral stent, [facility]. MEDICATIONS: 1. Tylenol. 2. Bisacodyl. 3. Heparin subcutaneous injection. 4. Ativan at bedtime. 5. Lactobacillus. 6. Levaquin 500 mg IV every 24 hours. 7. Zosyn 3.375 mg IV every 8 hours by extended infusion. 8. Melatonin. 9. Remeron. 10. Oxybutynin. 11. Senna. 12. Effexor. 13. Fentanyl. 14. Tramadol. ALLERGIES: CYMBALTA, MORPHINE, and PERCOCET. SOCIAL HISTORY: She lives at [facility]. She is a nonsmoker. FAMILY HISTORY: A sister with coronary artery disease. REVIEW OF SYSTEMS: All negative on 14-point review of systems except as noted above. PHYSICAL EXAMINATION: Vital Signs: Temperature 36.4, heart rate 70, respiratory rate 18, blood pressure 90/40, O2 sat 100% on room air. In general , she is awake, not in distress. Neurologic: She is oriented x3. Follows all commands. She has bilateral lower extremity contractures. HEENT: There is no conjunctival hemorrhage. Oropharynx without lesions. Neck is supple. Lymph Nodes: There is no inguinal, axillary, or epitrochlear lymphadenopathy. Heart has regular rate and rhythm without murmurs, rubs, or gallops. Lungs are clear to auscultation bilaterally. Abdomen: Soft, nontender, nondistended. There are bowel sounds present. Her ostomy contains liquid stool in there. She has mild right flank tenderness to palpation. Skin: There is no rash or splinter hemorrhage. There is a 4.5 cm right sacral decubitus superficial ulceration with surrounding mild erythema. Musculoskeletal: There is no spine tenderness to palpation. DIAGNOSTIC STUDIES/LAB DATA: White blood cell count 12, hemoglobin 10.9, platelets 466,000. Creatinine is 0.4. CPR 125. Please see impressions and recommendations outlined above, which I have discussed with Dr. Gaitan. Thank you for asking me to see Ms. Nation in consultation. [id number]/[facility] #: [id number] [facility]
[2017-08-27] MEDS: CMCS:Melatonin (NF) 3 MG TAB PO SCH ×2 (01:49→22:35)
[2017-08-27] MEDS: Heparin VIAL(*) 5000 UNITS/ML VIAL (FIVE THOUSAND) SUBCUT SCH ×3 (05:52→22:35)
[2017-08-27] MEDS ORDERED: Magnesium Hydroxide LIQ* 30 ML UDC PO PRN (08:17)
[2017-08-27] MEDS ORDERED: Magnesium Hydroxide LIQ* 30 ML UDC PO ONE (08:17)
[2017-08-27 09:34] LABS: Comments Flag Yes; Hematocrit 32 % (35-47); Mean Corpuscular HGB Conc 31 g/dl (31-36); Mean Corpuscular Hemoglobin 23 pg (27-31); Mean Platelet Volume 7 um3 (7.4-10.4); Red Cell Distribution Width 19 % (10.5-15); White Blood Count 9.8 10^3/ul (3.5-10.8)
[2017-08-27 09:35] LABS: Mean Corpuscular Volume 73 fL (80-97)
[2017-08-27 09:39] LABS: BUN/Creatinine Ratio 13.2 (8-20); C Reactive Protein 114.06 mg/L (< 5.00); Calcium 8.1 mg/dL (8.6-10.3); EGFR African American 216.6 (>60); EGFR Non-African American 168.4 (>60); Potassium 3.2 mmol/L (3.5-5.0)
[2017-08-27] MEDS: Venlafaxine EXT RELEASE CAP* 75 MG PO SCH (09:40)
[2017-08-27] MEDS: Oxybutynin XL TAB* 5 MG PO SCH (09:40)
[2017-08-27] MEDS: Docusate CAP* 100 MG PO SCH ×2 (09:41→20:34)
[2017-08-27] MEDS: Lactobacillus Acidophilu (GG)* 1 CAP CAP PO SCH (09:41)
[2017-08-27] MEDS ORDERED: Potassium Chloride LIQUID* 20 MEQ PACKET PO ONE (10:00)
[2017-08-27] MEDS: Nystatin TOP POWDER* 15 GM BTL TOPICAL SCH ×3 (11:12→22:34)
[2017-08-27] MEDS: NS 0.9% 1000 ML* 1,000 ML IV SCH (11:13)
[2017-08-27] MEDS: Polyethylene Glycol 3350* 17 GM PACKET PO SCH (13:19)
--- NOTE | 2017-08-27 16:42 | PN ---
Subjective Date of Service: 08/27/17 Interval History: Pt feels well. C/o back pain when moving Family History: Unchanged from Admission Social History: Unchanged from Admission Past Medical History: Unchanged from Admission Objective Active Medications: Acetaminophen (Tylenol Tab*) 650 mg PO Q6H PRN PRN Reason: pain/fever Last Admin: 08/26/17 17:02 Dose: 650 mg Bisacodyl (Dulcolax Supp*) 10 mg [place] DAILY PRN PRN Reason: CONSTIPATION Docusate Sodium (Colace Cap*) 100 mg PO BID [facility] Last Admin: 08/27/17 09:41 Dose: 100 mg Docusate Sodium (Colace Cap*) 100 mg PO BID PRN PRN Reason: CONSTIPATION Fentanyl Citrate (Fentanyl*) 25 mcg IV SLOW PU Q4H PRN PRN Reason: SEVERE PAIN Heparin Sodium (Porcine) (Heparin Vial(*)) 5,000 units SUBCUT Q8HR [facility] Last Admin: 08/27/17 13:20 Dose: 5,000 units Levofloxacin/Dextrose (Levaquin 500 Mg Ivpremix(*)) 500 mg in 100 mls @ 100 mls /hr IVPB Q24H [facility] Last Admin: 08/26/17 21:14 Dose: 100 mls/hr Sodium Chloride (Ns 0.9% 1000 Ml*) 1,000 mls @ 75 mls/hr IV PER RATE [facility] Last Admin: 08/27/17 11:13 Dose: 75 mls/hr Lactobacillus Rhamnosus (Culturelle*) 1 cap PO DAILY [facility] Last Admin: 08/27/17 09:41 Dose: 1 cap Lorazepam (Ativan Tab(*)) 1 mg PO BEDTIME PRN PRN Reason: ANXIETY Magnesium Hydroxide (Milk Of Magnesia Liq*) 30 ml PO Q6H PRN PRN Reason: CONSTIPATION Melatonin (Melatonin (Nf)) 3 mg PO BEDTIME [facility] Last Admin: 08/27/17 01:49 Dose: Not Given Mirtazapine (Remeron Tab*) 7.5 mg PO BEDTIME [facility] Last Admin: 08/26/17 21:17 Dose: 7.5 mg Nystatin (Nystatin Top Powder*) 1 applic TOPICAL TID [facility] Last Admin: 08/27/17 13:19 Dose: 1 applic Ondansetron HCl (Zofran Inj*) 4 mg IV Q6H PRN PRN Reason: NAUSEA Oxybutynin Chloride (Ditropan Xl Tab*) 15 mg PO DAILY [facility] Last Admin: 08/27/17 09:40 Dose: 15 mg Polyethylene Glycol/Electrolytes (Miralax*) 17 gm PO BEDTIME PRN PRN Reason: constipation Polyethylene Glycol/Electrolytes (Miralax*) 17 gm PO DAILY [facility] Last Admin: 08/27/17 13:19 Dose: 17 gm Prochlorperazine Edisylate (Compazine Inj*) 5 mg IV Q6H PRN PRN Reason: NAUSEA/VOMITING Senna (Senokot Tab*) 2 tab PO BID PRN PRN Reason: constipation Tramadol HCl (Ultram*) 50 mg PO Q8HR PRN PRN Reason: PAIN Venlafaxine HCl (Effexor Xr Cap*) 225 mg PO DAILY [facility] Last Admin: 08/27/17 09:40 Dose: 225 mg Vital Signs 08/26/17 08/26/17 08/26/17 18:09 21:17 22:09 Temperature 98.1 F 98.2 F Pulse Rate 106 87 Respiratory 18 18 Rate Blood Pressure 103/57 123/54 (mmHg) O2 Sat by Pulse 96 98 Oximetry 08/26/17 08/27/17 08/27/17 23:07 03:53 08:09 Temperature 97.8 F 98.1 F 98.6 F Pulse Rate 87 98 96 Respiratory 16 16 18 Rate Blood Pressure 112/60 125/61 119/58 (mmHg) O2 Sat by Pulse 100 99 97 Oximetry 08/27/17 10:15 Temperature Pulse Rate Respiratory 18 Rate Blood Pressure (mmHg) O2 Sat by Pulse Oximetry Oxygen Devices in Use Now: None Appearance: 66 yo f in NAD AAOx3 Eyes: No Scleral Icterus, PERRLA Ears/Nose/Mouth/Throat: NL Teeth, Lips, Gums, Mucous Membranes Moist Neck: NL Appearance and Movements; NL JVP, Trachea Midline Respiratory: Symmetrical Chest Expansion and Respiratory Effort, Clear to Auscultation Cardiovascular: NL Sounds; No Murmurs; No JVD, RRR Abdominal: NL Sounds; No Tenderness; No Distention, No Hepatosplenomegaly Lymphatic: No Cervical Adenopathy Extremities: No Edema, No Clubbing, Cyanosis Skin: - - stage 2-3 small 3 cm decub on medial left distal leg. sacral decub on R side at 6-8 cm in diam, stage 4 deep to the bone with serosanguineus discharge Neurological: Alert and Oriented x 3, - - paraplegic Result Diagrams: 08/27/17 09:16 08/27/17 09:16 Additional Lab and Data: Lab Results 08/25/17 Range/Units 14:25 WBC 15.9 H (3.5-10.8) 10^3/ul RBC 5.13 (4.0-5.4) 10^6/ul Hgb 11.6 L (12.0-16.0) g/dl Hct 37 (35-47) % MCV 73 L (80-97) fL MCH 23 L (27-31) pg MCHC 31 (31-36) g/dl RDW 19 H (10.5-15) % Plt Count 549 H (150-450) 10^3/ul MPV 7 L (7.4-10.4) um3 Neut % (Auto) 71.8 (38-83) % Lymph % (Auto) 18.9 L (25-47) % [place] % (Auto) 6.9 (1-9) % Eos % (Auto) 1.8 (0-6) % Baso % (Auto) 0.6 (0-2) % Absolute Neuts (auto) 11.4 H (1.5-7.7) 10^3/ul Absolute Lymphs (auto) 3.0 (1.0-4.8) 10^3/ul Absolute Monos (auto) 1.1 H (0-0.8) 10^3/ul Absolute Eos (auto) 0.3 (0-0.6) 10^3/ul Absolute Basos (auto) 0.1 (0-0.2) 10^3/ul Absolute Nucleated RBC 0.01 10^3/ul Nucleated RBC % 0 Assess/Plan/Problems-Billing Assessment: Mrs. Nation is a 66yo F with PMH of MS, neurogenic bladder with chronic Borrego, sacral decubitus with chronic osteomyelitis, depression, nephrolithiasis, recurrent UTIs, who presented to ED with c/o malaise, found to have sepsis secondary to catheter associated UTI. - Patient Problems (1) UTI (urinary tract infection) Comment: - Borrego catheter associated, present on admission. - Urine culture growing Proteus. - Continue Levaquin. - ID consult appreciated - CT abdomem/pelvis was negative for nephrolithiasis or hydronephrosis. (2) Sepsis Comment: - Met sepsis criteria on admission with tachycardia and leukocytosis. - Source is UTI. (3) Sacral decubitus ulcer, stage IV Comment: - Present on admission. - Seems to be better than on prior admissions. -wound consult requested (4) Neurogenic bladder Comment: - Borrego changed on 08/26/17. (5) DVT prophylaxis Comment: - SQ heparin. Status and Disposition: Inpatient for management of sepsis
[2017-08-27] MEDS: Mirtazapine TAB* 15 MG PO SCH (20:34)
[2017-08-27] MEDS: Levofloxacin 500 MG IVPREMIX(* 500 MG/100 ML BAG IVPB SCH (20:35)
[2017-08-28 00:30] LABS: Rapid HIV INT CONT QC Line Present
[2017-08-28 00:31] LABS: Manual Entry Verification ABI0007; Rapid HIV Kit Lot# H017003
[2017-08-28] MEDS: Heparin VIAL(*) 5000 UNITS/ML VIAL (FIVE THOUSAND) SUBCUT SCH ×3 (06:05→21:55)
[2017-08-28] MEDS: Venlafaxine EXT RELEASE CAP* 75 MG PO SCH (08:32)
[2017-08-28] MEDS: Lactobacillus Acidophilu (GG)* 1 CAP CAP PO SCH (08:33)
[2017-08-28] MEDS: Nystatin TOP POWDER* 15 GM BTL TOPICAL SCH ×3 (08:33→22:06)
[2017-08-28] MEDS: Polyethylene Glycol 3350* 17 GM PACKET PO SCH (08:33)
[2017-08-28] MEDS: Oxybutynin XL TAB* 5 MG PO SCH (08:33)
[2017-08-28] MEDS: Docusate CAP* 100 MG PO SCH ×2 (08:33→21:32)
[2017-08-28] MEDS ORDERED: Magnesium CITRATE* 300 ML BTL PO ONE ×2 (08:54→12:30)
--- NOTE | 2017-08-28 08:57 | PN ---
Progress Note - Progress Note Date of Service: 08/28/17 SOAP: Subjective: CC: 08/28/17 HPI: 66 year old woman with MS, neurogenic bladder, chronic hammer; admitted with sepsis, much improved. No fever, rash, or diarrhea. No air or stool in ostomy. No abd pain. Objective: [] Vital Signs Temp 36.3 C 08/28/17 04:48 Pulse 92 08/28/17 04:48 Resp 16 08/28/17 04:48 BP 149/78 08/28/17 04:48 Pulse Ox 98 08/28/17 04:48 Intake & Output 08/27/17 08/28/17 08/28/17 18:59 06:59 18:59 Intake Total 1528 130 Output Total 1900 1150 Balance -372 -1020 Intake: IV Fluids 498 130 IV ABT 100 NS 498 30 Oral 1030 0 Output: Hammer 1900 1150 Other: # Bowel Movements 0 Gen:awake, no distress HEENT:PERRL, MMM Heart:RRR no murmur Lungs:CTA BL Abd:+BS NTND soft LLQ ostomy, non tender around Skin: no rash MSK: R sacral decubitus ulcer 3 cm macerated; bleeding; mild erythema LE contractures Laboratory Results - last 24 hr 08/27/17 08/27/17 08/27/17 09:16 09:16 23:50 WBC 9.8 RBC 4.40 Hgb 10.0 L Hct 32 L MCV 73 L MCH 23 L MCHC 31 RDW 19 H Plt Count 473 H MPV 7 L Neut % (Auto) 66.9 Lymph % (Auto) 23.6 L [place] % (Auto) 4.5 Eos % (Auto) 4.4 Baso % (Auto) 0.6 Absolute Neuts (auto) 6.5 Absolute Lymphs (auto) 2.3 Absolute Monos (auto) 0.4 Absolute Eos (auto) 0.4 Absolute Basos (auto) 0.1 Absolute Nucleated RBC 0 Nucleated RBC % 0 Sodium 139 Potassium 3.2 L Chloride 109 Carbon Dioxide 25 Anion Gap 5 BUN 5 L Creatinine 0.38 L Est GFR ( Amer) 216.6 Est GFR (Non-Af Amer) 168.4 BUN/Creatinine Ratio 13.2 Glucose 98 Calcium 8.1 L C-Reactive Protein 114.06 H HIV 1&2 Antibody Rapid Nonreactive Microbiology 08/25/17 14:25 Aerobic Blood Culture - Preliminary Blood Venous No Growth Day 3 Anaerobic Blood Culture - Final Staphylococcus Epidermidis Blood Culture - Final Blood MRSA/MSSA (PCR) - Final Mrsa Negative S.aureus Negative 08/25/17 15:33 Aerobic Blood Culture - Preliminary Blood Venous No Growth Day 2 Anaerobic Blood Culture - Preliminary No Growth Day 2 Blood Culture - Final 08/25/17 15:30 Urine Culture - Preliminary Urine Proteus Mirabilis Assessment: 1. Sepsis, present on admission 2. Proteus cystitis, pyelonephritis 3. chronic hammer catheter 4. neurogenic bladder 5. MS Plan: 1. change levaquin to PO. Wound care. Laxatives Discussed with Dr Estrada 35 minutes floor time >50% in counseling regarding antibiotic and wound treatment.
--- NOTE | 2017-08-28 09:50 | RAD ---
HISTORY: Sepsis, possible UTI, rule out obstruction. COMPARISONS: CT dated August 25, 2017 VIEWS: Supine and left lateral view disease of the abdomen FINDINGS: BOWEL: There is a nonobstructive bowel gas pattern. There is a large amount of stool within the colon. CALCULI: There are no abnormal calculi. BONES AND SOFT TISSUES: Degenerative changes are noted of the spine. The dysplastic. OTHER FINDINGS: The lung bases are clear. There is no subphrenic gas. IMPRESSION: NONOBSTRUCTIVE BOWEL GAS PATTERN. LARGE AMOUNT OF STOOL WITHIN THE COLON.
[2017-08-28] MEDS ORDERED: Sodium Phosphate ADULT ENEMA* 118 ml bottle PR PRN (12:15)
--- NOTE | 2017-08-28 12:43 | PN ---
Progress Note - Progress Note Date of Service: 08/28/17 Note: Brief surgery note: (full note dictated) S: 66 yo female w/ longstanding parastomal hernia w/ 3 days of no stool. She's been passing flatus. She denies abd pain. She is tolerating diet. She is just getting her first dose of Mag citrate. O: Vital Signs - 8 hr 08/28/17 08/28/17 08/28/17 04:48 08:00 08:05 Temperature 97.4 F 98.0 F Pulse Rate 92 81 Respiratory 16 18 18 Rate Blood Pressure 149/78 113/60 (mmHg) O2 Sat by Pulse 98 97 Oximetry Gen: appears comfortable Abd: +BS; L-sided colostomy w/ obvious parastomal hernia; no tenderness to palp ; no masses; parastomal hernia not completely reducible, but nontender. Digital exam performed of the stoma (loop sigmoid colostomy from the history). The superior limb is empty. The inferior limb has some soft stool present. AXR: nonobstructive pattern; moderate stool in colon A: obstipation (no surgical concerns in terms of obstruction) P: cont w/ current laxative regimen (has had Colace and Miralax this am; presently getting Mag Citrate); if this is not effective, I have ordered a Fleets per the ostomy. Will follow.
--- NOTE | 2017-08-28 14:15 | PN ---
Subjective Date of Service: 08/28/17 Interval History: pt feels well. Better and stronger everyday. Still no BM in colostomy bag Family History: Unchanged from Admission Social History: Unchanged from Admission Past Medical History: Unchanged from Admission Objective Active Medications: Acetaminophen (Tylenol Tab*) 650 mg PO Q6H PRN PRN Reason: pain/fever Last Admin: 08/26/17 17:02 Dose: 650 mg Bisacodyl (Dulcolax Supp*) 10 mg [place] DAILY PRN PRN Reason: CONSTIPATION Docusate Sodium (Colace Cap*) 100 mg PO BID [facility] Last Admin: 08/28/17 08:33 Dose: 100 mg Docusate Sodium (Colace Cap*) 100 mg PO BID PRN PRN Reason: CONSTIPATION Fentanyl Citrate (Fentanyl*) 25 mcg IV SLOW PU Q4H PRN PRN Reason: SEVERE PAIN Heparin Sodium (Porcine) (Heparin Vial(*)) 5,000 units SUBCUT Q8HR [facility] Last Admin: 08/28/17 06:05 Dose: 5,000 units Levofloxacin/Dextrose (Levaquin 500 Mg Ivpremix(*)) 500 mg in 100 mls @ 100 mls /hr IVPB Q24H [facility] Last Admin: 08/27/17 20:35 Dose: 100 mls/hr Lactobacillus Rhamnosus (Culturelle*) 1 cap PO DAILY [facility] Last Admin: 08/28/17 08:33 Dose: 1 cap Lorazepam (Ativan Tab(*)) 1 mg PO BEDTIME PRN PRN Reason: ANXIETY Magnesium Hydroxide (Milk Of Magnesia Liq*) 30 ml PO Q6H PRN PRN Reason: CONSTIPATION Melatonin (Melatonin (Nf)) 3 mg PO BEDTIME [facility] Last Admin: 08/27/17 22:35 Dose: 3 mg Mirtazapine (Remeron Tab*) 7.5 mg PO BEDTIME [facility] Last Admin: 08/27/17 20:34 Dose: 7.5 mg Nystatin (Nystatin Top Powder*) 1 applic TOPICAL TID [facility] Last Admin: 08/28/17 08:33 Dose: 1 applic Ondansetron HCl (Zofran Inj*) 4 mg IV Q6H PRN PRN Reason: NAUSEA Oxybutynin Chloride (Ditropan Xl Tab*) 15 mg PO DAILY [facility] Last Admin: 08/28/17 08:33 Dose: 15 mg Polyethylene Glycol/Electrolytes (Miralax*) 17 gm PO BEDTIME PRN PRN Reason: constipation Polyethylene Glycol/Electrolytes (Miralax*) 17 gm PO DAILY [facility] Last Admin: 08/28/17 08:33 Dose: 17 gm Prochlorperazine Edisylate (Compazine Inj*) 5 mg IV Q6H PRN PRN Reason: NAUSEA/VOMITING Senna (Senokot Tab*) 2 tab PO BID PRN PRN Reason: constipation Sodium Biphosphate/Sodium Phosphate (Fleet Enema*) 1 bottle [place] ONCE PRN PRN Reason: if no results after mag citrat Tramadol HCl (Ultram*) 50 mg PO Q8HR PRN PRN Reason: PAIN Venlafaxine HCl (Effexor Xr Cap*) 225 mg PO DAILY [facility] Last Admin: 08/28/17 08:32 Dose: 225 mg Vital Signs 08/27/17 08/27/17 08/27/17 16:04 19:35 23:26 Temperature 98.3 F 98.1 F 98.0 F Pulse Rate 96 94 85 Respiratory 32 20 16 Rate Blood Pressure 133/55 132/50 127/66 (mmHg) O2 Sat by Pulse 98 97 97 Oximetry 08/28/17 08/28/17 08/28/17 04:48 08:00 08:05 Temperature 97.4 F 98.0 F Pulse Rate 92 81 Respiratory 16 18 18 Rate Blood Pressure 149/78 113/60 (mmHg) O2 Sat by Pulse 98 97 Oximetry 08/28/17 11:20 Temperature 98.5 F Pulse Rate 95 Respiratory 18 Rate Blood Pressure 116/68 (mmHg) O2 Sat by Pulse 94 Oximetry Oxygen Devices in Use Now: None Appearance: 66 yo f in nAD, aAOx3 Eyes: No Scleral Icterus, PERRLA Ears/Nose/Mouth/Throat: NL Teeth, Lips, Gums, Mucous Membranes Moist Neck: NL Appearance and Movements; NL JVP, Trachea Midline Respiratory: Symmetrical Chest Expansion and Respiratory Effort, Clear to Auscultation Cardiovascular: NL Sounds; No Murmurs; No JVD, RRR Abdominal: NL Sounds; No Tenderness; No Distention, - - stoma in LLQ with parastomal hernia present, soft, NT, BS+ Lymphatic: No Cervical Adenopathy Extremities: No Edema, No Clubbing, Cyanosis Skin: No Nodules or Sclerosis, - - sacral decub stage 4 at 6-8 cm draining serosanquineus fluid Neurological: Alert and Oriented x 3, - - paraplegic Result Diagrams: 08/27/17 09:16 08/27/17 09:16 Additional Lab and Data: Lab Results 08/25/17 Range/Units 14:25 WBC 15.9 H (3.5-10.8) 10^3/ul RBC 5.13 (4.0-5.4) 10^6/ul Hgb 11.6 L (12.0-16.0) g/dl Hct 37 (35-47) % MCV 73 L (80-97) fL MCH 23 L (27-31) pg MCHC 31 (31-36) g/dl RDW 19 H (10.5-15) % Plt Count 549 H (150-450) 10^3/ul MPV 7 L (7.4-10.4) um3 Neut % (Auto) 71.8 (38-83) % Lymph % (Auto) 18.9 L (25-47) % [place] % (Auto) 6.9 (1-9) % Eos % (Auto) 1.8 (0-6) % Baso % (Auto) 0.6 (0-2) % Absolute Neuts (auto) 11.4 H (1.5-7.7) 10^3/ul Absolute Lymphs (auto) 3.0 (1.0-4.8) 10^3/ul Absolute Monos (auto) 1.1 H (0-0.8) 10^3/ul Absolute Eos (auto) 0.3 (0-0.6) 10^3/ul Absolute Basos (auto) 0.1 (0-0.2) 10^3/ul Absolute Nucleated RBC 0.01 10^3/ul Nucleated RBC % 0 Assess/Plan/Problems-Billing Assessment: Mrs. Nation is a 66yo F with PMH of MS, neurogenic bladder with chronic Borrego, sacral decubitus with chronic osteomyelitis, depression, nephrolithiasis, recurrent UTIs, who presented to ED with c/o malaise, found to have sepsis secondary to catheter associated UTI. - Patient Problems (1) UTI (urinary tract infection) Comment: - Borrego catheter associated, present on admission. - Urine culture growing Proteus. - Continue Levaquin.Can be switched to PO - ID consult appreciated - CT abdomen/pelvis was negative for nephrolithiasis or hydronephrosis. (2) Sepsis Comment: - Met sepsis criteria on admission with tachycardia and leukocytosis. - Source is UTI. (3) Sacral decubitus ulcer, stage IV Comment: - Present on admission. - Seems to be better than on prior admissions. -wound consult appreciated. cont medihoney. Wound is draining and requires dressing changes BID (4) Neurogenic bladder Comment: - Borrego changed on 08/26/17. (5) Constipation Comment: appreciate surgical consult. No evidence of obstruction Pt has parastomal hernia that is chronic Cont laxatives (6) DVT prophylaxis Comment: - SQ heparin. Status and Disposition: Inpatient for management of sepsis
--- NOTE | 2017-08-28 14:25 | CONS ---
CC: Mee Ricketts MD SURGICAL CONSULT NOTE: DATE OF CONSULT: 08/28/17 ATTENDING SURGEON: Ramiro Bocanegra MD (JIN Rg, dictating). CHIEF COMPLAINT: Obstipation. HISTORY OF PRESENT ILLNESS: This is a 66-year-old female with paraplegia secondary to multiple sclerosis. She is a longtime resident at [facility]. She underwent what sounds like a diverting loop sigmoid colostomy in [place] around 2009. This was to divert stool because of recurrent problems with sacral decubitus and chronic osteomyelitis. She has been followed regularly by the wound clinic. She was admitted on 08/25/17 with symptoms that she attributed to UTI (she has a chronic indwelling Borrego catheter). She has had a longstanding parastomal hernia which she states has not changed significantly, but is somewhat more swollen than before. We were called to see her because of no stool for the last 3 days. She has been receiving Colace, Dulcolax, MiraLAX, and milk of magnesia without effect. She just had the first dose of magnesium citrate which she states has worked well in the past. She has required occasional enemas per the colostomy. She denies abdominal pain. She is tolerating diet. She denies nausea or vomiting. PHYSICAL EXAMINATION: On exam she is afebrile, and her vital signs are stable. General: In no acute distress. She appears comfortable. Exam is otherwise limited to the abdomen and the stoma. There are bowel sounds present. There is a left-sided stoma with protrusion consistent with known parastomal hernia. The abdomen is soft and nontender to palpation. I am not able to completely reduce the stoma, though it is nontender to palpation. On digital exam, the superior limb is essentially empty. The inferior limb does have stool present and upon deeper examination she complains of crampy pain in the right lower quadrant. DIAGNOSTIC STUDIES: CT scan from admission, 08/25/17, was reviewed personally by myself as well as a plain film this morning. There are no signs of obstruction, though there is quite a bit of stool present in the colon. IMPRESSION: Obstipation; there are no concerns for obstruction or need for surgical intervention. PLAN: Recommend continuation with laxatives as currently written. I did write an order for a Fleet enema per the colostomy and instructed the nurse in terms of which limb of the colostomy to direct the enema p.r.n. if the oral laxatives are ineffective. She also may end up needing some digital disimpaction, though hopefully the combination of laxatives and enema will suffice. JIN RG [id number]/[facility] #: [id number] [facility]
[2017-08-28] MEDS ORDERED: Levofloxacin TAB* 500 MG PO SCH (15:00)
[2017-08-28] MEDS: CMCS:Melatonin (NF) 3 MG TAB PO SCH (21:26)
[2017-08-28] MEDS: Mirtazapine TAB* 15 MG PO SCH (21:55)
[2017-08-29] MEDS: Heparin VIAL(*) 5000 UNITS/ML VIAL (FIVE THOUSAND) SUBCUT SCH (05:27)
[2017-08-29 07:54] VITALS: BP 112/64
[2017-08-29] MEDS: Lactobacillus Acidophilu (GG)* 1 CAP CAP PO SCH (09:50)
[2017-08-29] MEDS: Venlafaxine EXT RELEASE CAP* 75 MG PO SCH (09:50)
[2017-08-29] MEDS: Oxybutynin XL TAB* 5 MG PO SCH (09:50)
[2017-08-29] MEDS: Docusate CAP* 100 MG PO SCH (09:51)
[2017-08-29] MEDS: Polyethylene Glycol 3350* 17 GM PACKET PO SCH (09:51)
[2017-08-29] MEDS: Nystatin TOP POWDER* 15 GM BTL TOPICAL SCH (09:52)
--- NOTE | 2017-08-29 11:20 | PN ---
Progress Note - Progress Note Date of Service: 08/29/17 SOAP: Subjective: Reports feeling much better. Had a large stool output this AM. Much less bloated , ready to go home. Objective: Awake and alert, comfortable in bed, in NAD VSS, afebrile Abdomen soft, much less distended, non-tender Stoma viable with stool output Assessment: A 66 y/o female with resolved obstipation after enema via stoma. Plan: D/C plans per medicine F/U with PCP F/U with surgical associates as needed
--- NOTE | 2017-08-30 01:20 | DS ---
CC: Dr. Lujan; Dr. Bocanegra; [facility], [facility]; Dr. Ricketts, [facility] * DISCHARGE SUMMARY: DATE OF ADMISSION: 08/25/17 DATE OF DISCHARGE: 08/29/17 PRIMARY CARE PROVIDER: Dr. Ricketts at [facility]. DISCHARGE DIAGNOSIS: Proteus mirabilis urinary tract infection, Borrego associated and sepsis due to that. SECONDARY DIAGNOSES: 1. Chronic sacral decubitus ulcer, stage IV. 2. History of neurogenic bladder with indwelling Obrrego. 3. Sacral decubitus with chronic osteomyelitis. 4. Multiple sclerosis and paraplegia due to that. 5. Depression. 6. Constipation. 7. 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 8. Nephrolithiasis. 9. History of recurrent urinary tract infections. 10. Status post cholecystectomy and appendectomy. 11. History of . 12. History of right kidney surgery, possibly a stent placement over 2 years ago. MEDICATIONS AT DISCHARGE: Include: 1. Levaquin 500 mg p.o. b.i.d. for a total of 10 days. Most of the remaining medications are unchanged and include: 1. Acetaminophen on a p.r.n. basis. 2. Acetic acid 0.25% on a p.r.n. basis. 3. Biotin 1000 mcg daily. 4. Dulcolax suppository on a p.r.n. basis. 5. Vitamin D3 2000 units daily. 6. Colace 100 mg b.i.d. 7. Lorazepam 0.5 mg at bedtime. 8. Acidophilus 1 capsule daily. 9. Melatonin 5 mg at bedtime. 10. Remeron 7.5 mg at bedtime. 11. Multivitamin 1 tablet daily. 12. Nystatin powder apply to groin area b.i.d. 13. Ditropan XL 15 mg daily. 14. MiraLAX 17 g at bedtime. 15. Senna 2 tablets b.i.d. 16. Effexor ER 150 mg daily and tablet of 75 mg daily for a total of 225 mg daily. 17. Ultram 50 mg every 8 hours p.r.n. LABORATORY DATA AND STUDIES PERFORMED DURING THE HOSPITAL STAY: Included: On 08/27/17, white blood cell count of 9.8, hemoglobin 10.0, hematocrit of 32, platelets of 473. Sodium 139, potassium 3.2, chloride 109, carbon dioxide 25, BUN 5, and creatinine 0.38. Hepatitis studies showed hepatitis B core IgM negative, C nonreactive. HIV nonreactive. Abdomen and pelvis CT documented on 08/25/17, impression: "Large parastomal hernia. Unchanged. Bilateral decubitus ulcers with findings suggestive of chronic osteomyelitis." CONSULTATIONS DURING THE HOSPITAL STAY: Include Dr. Lujan from Infectious Diseases and Dr. Bocanegra from Surgery. HOSPITALIZATION COURSE: Ms. Nation is a 66-year-old female with history of multiple sclerosis and paraplegia due to that, who also has chronic indwelling Borrego and colostomy bag. She presented to the hospital with not feeling well and in sepsis at admission. The patient's sepsis source was Proteus mirabilis UTI, it was Borrego associated. The patient was treated with broad-spectrum antibiotics after her cultures came back. Dr. Lujan guided the treatment. The patient was also evaluated by wound care nurse, who noted that the patient needs Medihoney dressings to be changed daily. The wound was draining serosanguineous fluid and I also asked the fdc staff to change it on a p.r.n. basis if it becomes soaked. The patient's Borrego was exchanged during the hospital stay. At the end of patient's hospitalization, the complication was obstipation. The patient was constipated for 4 to 5 days. Surgery saw the patient for evaluation and noted that the patient has no obstruction. Multiple laxatives were given as well as Fleet Enema through the colostomy. That resulted in a large bowel movement on the day prior to discharge. The patient is going to be discharged home. Recommendation is to follow up with Dr. Ricketts at fdc as well as wound care center early next week. PHYSICAL EXAMINATION: At the time of discharge, blood pressure of 112/64, heart rate of 84 and regular, respiratory rate 18, and oxygen saturation 100% on room air, and temperature 98.2. General: This is a very pleasant 66-year- old female, who is in no acute distress. Alert, awake, and oriented x3. HEENT : Head atraumatic and normocephalic. Eyes: Pupils are equal and reactive to light and accommodation. Oropharynx clear. Mucosa moist. Neck: Supple. No JVD, no bruits bilaterally. Cardiovascular: Regular rate and rhythm. No murmur. Respiratory: Clear to auscultation bilaterally. Abdomen: Soft and nontender. Bowel sounds are present in all 4 quadrants. Stoma is present in the left mid abdomen with parastomal hernia visible, rather large, nontender to palpation. Extremities: There is no edema, pulses are +2 bilaterally. No clubbing or cyanosis. Neuro Evaluation: The patient's speech is clear. The patient is paraplegic from the waist down. On evaluation of the skin, the patient has a stage IV decubitus ulcer, approximately 6 to 8 cm on the sacrum with what appears to be bone exposed. It does not appear to be acutely infected and is draining serosanguineous fluid. There is a small area on the left distal level, approximately 2 to 3 cm stage III decubitus. The patient is being discharged back to her fdc at [facility] with recommendation to follow up with her primary care provider as above mentioned and the Wound Care on Friday. Please note that this is a short summary of the patient's hospitalization. Please refer to further medical records for details. TIME SPENT: Approximately 45 minutes was spent on the patient's discharge. [id number]/[id number] #: [id number] MTDD
== END 2017-08-29 13:45 | DRG 698 ==
LOC: ED 12:10 → MED 17:07
PROVIDERS: ADMIT Internal Medicine; ATTEND Internal Medicine
DX: T83.511A Infection and inflammatory reaction due to indwelling urethral catheter, initial encounter (principal); A41.89 Other specified sepsis; L89.154 Pressure ulcer of sacral region, stage 4; G93.40 Encephalopathy, unspecified; N31.9 Neuromuscular dysfunction of bladder, unspecified; M86.68 Other chronic osteomyelitis, other site; G82.20 Paraplegia, unspecified; G35 Multiple sclerosis; N39.0 Urinary tract infection, site not specified; B96.4 Proteus (mirabilis) (morganii) as the cause of diseases classified elsewhere; X58.XXXA Exposure to other specified factors, initial encounter; F32.9 Major depressive disorder, single episode, unspecified; K59.00 Constipation, unspecified; N20.0 Calculus of kidney; Z87.440 Personal history of urinary (tract) infections; K43.5 Parastomal hernia without obstruction or gangrene; Z93.3 Colostomy status; Z83.3 Family history of diabetes mellitus; Z82.49 Family history of ischemic heart disease and other diseases of the circulatory system; Z88.5 Allergy status to narcotic agent; Z88.8 Allergy status to other drugs, medicaments and biological substances; Z79.01 Long term (current) use of anticoagulants; Z79.1 Long term (current) use of non-steroidal anti-inflammatories (NSAID); Z79.899 Other long term (current) drug therapy
CPT/HCPCS: 36415; 71020; 74020; 74176; 80048; 80053; 81003; 81015; 83605; 84484; 85025; 85610; 85730; 86140; 86703; 86705; 86803; 87040; 87077; 87086; 87150; 87181; 87186; 87205; A9270-GY; J1644; J1956; J2543; J3370

== ENCOUNTER 2017-10-13 12:08 | Inpatient (IN) | payer MEDICARE, MEDICAID ==
[2017-10-13] MEDS ORDERED: Cefepime(*) 1 GM in NS 0.9% 50 ML* 50 ML IVPB ONE (14:23)
[2017-10-13] MEDS ORDERED: NS 0.9% 1000 ML*IV.FLUID IV ONE (14:23)
[2017-10-13] MEDS ORDERED: Vancomycin(*) 750 MG in NS 0.9% 250 ML* 250 ML IVPB ONE (14:30)
--- NOTE | 2017-10-13 14:49 | RAD ---
INDICATION: Fever COMPARISON: Chest x-ray dated August 25, 2017 TECHNIQUE: Single AP portable view of the chest was obtained. FINDINGS: Image quality is compromised due to the relative inferiority of a portable chest x-ray. The heart and mediastinum exhibit normal size and contour. The lungs are grossly clear. There is no evidence of a large pleural effusion. Visualized bones are normal for the patient's age. IMPRESSION: No radiographic evidence for acute cardiopulmonary abnormality on this portable chest x-ray.
[2017-10-13] MEDS ORDERED: Vancomycin(*) 1,000 MG VIAL IVPB SCH (15:00)
--- NOTE | 2017-10-13 15:01 | RAD ---
CLINICAL HISTORY: Flank pain COMPARISON: August 25, 2017 TECHNIQUE: Multiple contiguous axial CT scans were obtained of the abdomen and pelvis, without intravenous contrast enhancement. Coronal and sagittal multiplanar reformations are submitted for review. Oral contrast was not administered. FINDINGS: The study is limited by the lack of intravenous contrast. This limits evaluation of the solid organs and vasculature. LUNG BASES: The lung bases are clear. LIVER: The liver is normal in shape, size, contour, and attenuation. BILE DUCTS: There is no intrahepatic or extrahepatic biliary dilatation. GALLBLADDER: The gallbladder is not visualized consistent with the history of cystectomy. PANCREAS: The pancreas is normal, without mass or ductal dilatation. SPLEEN: Normal in size and appearance. UPPER GI TRACT: Evaluation of the gastrointestinal tract is limited by incomplete gastric distention. The upper GI tract is unremarkable. SMALL BOWEL AND MESENTERY: The small bowel is normal in contour, course, and caliber. There is no obstruction or dilatation. COLON: The colon is normal in contour, course, caliber. There is no pericolonic inflammatory change. ADRENALS: Normal bilaterally. KIDNEYS: There is mild right hydroureter. There is no appreciable nephrolithiasis. BLADDER: The bladder is collapsed rounded Borrego catheter and is not well evaluated. PELVIC ORGANS: The uterus and adnexa are grossly normal for technique. AORTA: The aorta is normal. IVC: Unremarkable LYMPH NODES: There is no lymphadenopathy by size criteria. ABDOMINAL WALL: There is a large left-sided ventral hernia containing loops of small bowel and large bowel. BONES AND SOFT TISSUES: There is post surgical change to the distal sacrum and coccyx. There is a scoliotic curvature of the spine. There is diffuse osteopenia. There is a subacute to chronic appearing fracture of the proximal right femur, new from the previous examination. There is soft tissue defect of the right buttock, and to lesser extent of the left buttock, consistent with history of nonhealing wound. OTHER: None IMPRESSION: 1. MILD RIGHT HYDROURETER WITHOUT APPRECIABLE NEPHROLITHIASIS. 2. SUBACUTE TO CHRONIC APPEARING FRACTURE OF THE RIGHT PROXIMAL FEMUR NEAR COMPARED TO 2016. 3. LARGE VENTRAL HERNIA. 4. FINDINGS CONSISTENT WITH DECUBITUS ULCERS.
[2017-10-13 15:08] LABS: Hematocrit 35 % (35-47); Hemoglobin 11.3 g/dl (12.0-16.0); Mean Corpuscular HGB Conc 32 g/dl (31-36); Mean Corpuscular Hemoglobin 24 pg (27-31); Mean Corpuscular Volume 74 fL (80-97); Mean Platelet Volume 7 um3 (7.4-10.4); Red Blood Count 4.76 10^6/ul (4.0-5.4); Red Cell Distribution Width 18 % (10.5-15); White Blood Count 16.9 10^3/ul (3.5-10.8)
[2017-10-13 15:09] LABS: Add Diff/Slide Review? Slide Review Added; Comments Flag Yes
[2017-10-13 15:19] LABS: Albumin 3.5 g/dL (3.2-5.2); C Reactive Protein 131.43 mg/L (< 5.00); Calcium 9.3 mg/dL (8.6-10.3); EGFR African American 157.3 (>60); EGFR Non-African American 122.3 (>60); Globulin 4.4 g/dL (2-4); Potassium 3.5 mmol/L (3.5-5.0); Total Bilirubin 0.2 mg/dL (0.2-1.0); Total Protein 7.9 g/dL (6.4-8.9)
[2017-10-13 15:43] LABS: Urine Bacteria 1+ (Absent); Urine Bilirubin Negative (Negative); Urine Glucose Negative (Negative); Urine Nitrite Negative (Negative)
[2017-10-13] MEDS ORDERED: Enoxaparin(*) 40 MG/0.4 ML SYR SUBCUT SCH (16:00)
[2017-10-13 16:10] LABS: Erythrocyte Sed Rate 66 mm/Hr (0-40)
--- NOTE | 2017-10-13 16:11 | ED ---
Ubaldo Wells Nilda, scribed for Jah Payton MD on 10/13/17 at 1423 . GI/ HPI - HPI Summary HPI Summary: This patient is a 67 year old F presenting to [facility] from [facility], [place] with a chief complaint of constant right flank pain (pinching) since this morning. The patient rates the pain 4/10 in severity. Symptoms aggravated by movement and alleviated by nothing. Patient reports fever (100.5) and back pain. She denies melena, cough, SOB, and chills. She states she is currently not on steroids. - History of Current Complaint Chief Complaint: EDUrogenitalProblems Time Seen by Provider: 10/13/17 14:04 Stated Complaint: RT KIDNEY PAIN/POSS UTI Hx Obtained From: Patient Onset/Duration: Started Hours Ago, Still Present Timing: Constant Current Severity: Moderate Pain Intensity: 4 Location of Pain: Flank - right Pain Characteristics: Other: - pinching Associated Signs and Symptoms: Positive: Back Pain Additional Signs & Symptoms: Positive: Other: - fever (100.5) and back pain. She denies melena, cough, SOB, and chills. Aggravating Factor(s): Movement Alleviating Factor(s): Nothing - Additional Pertinent History Primary Care Physician: SHIRLEY - Allergy/Home Medications Allergies/Adverse Reactions: Allergies Allergy/AdvReac Type Severity Reaction Status Date / Time CI Pigment Blue 63 Allergy Unknown Verified 05/23/17 22:02 [From Cymbalta] Reaction Details Duloxetine [From Cymbalta] Allergy Unknown Verified 05/23/17 22:02 Reaction Details Morphine Allergy Unknown Verified 05/23/17 22:02 Reaction Details Oxycodone [From Percocet] Allergy Unknown Verified 05/23/17 22:02 Reaction Details Home Medications: Home Medications Acetaminophen [Acetaminophen Extra Stren] 1,000 mg PO Q8HR PRN 10/13/17 [ History Confirmed 10/13/17] Cholecalciferol TAB* [Vitamin D TAB*] 2,000 units PO DAILY 10/13/17 [History Confirmed 10/13/17] Docusate CAP* [Colace Cap*] 200 mg PO BEDTIME 10/13/17 [History Confirmed ] LORazepam TAB(*) [Ativan 0.5 MG TAB (*)] 0.5 mg PO DAILY PRN 10/13/17 [History Confirmed 10/13/17] Lactobacillus [Probiotic] 1 cap PO DAILY 10/13/17 [History Confirmed 10/13/17] Lidocaine 2% JELLY* 1 applic TOPICAL DAILY 10/13/17 [History Confirmed 10/13/17] Melatonin (NF) 5 mg PO BEDTIME 10/13/17 [History Confirmed 10/13/17] Multivitamins/Minerals TAB* [Theragran/minerals TAB*] 1 tab PO DAILY 10/13/17 [ History Confirmed 10/13/17] Senna TAB* [Senokot TAB*] 2 tab PO BID 10/13/17 [History Confirmed 10/13/17] Venlafaxine EXT RELEASE CAP* [Effexor Xr CAP*] 225 mg PO DAILY 10/13/17 [ History Confirmed 10/13/17] PMH/Surg Hx/FS Hx/Imm Hx Endocrine/Hematology History: Reports: Hx Anemia Denies: Hx Anticoagulant Therapy, Hx Blood Disorders, Hx Blood Transfusions, Hx Bone Marrow Disease, Hx Diabetes, Hx Systemic Lupus Erythematosus, Hx Sickle Cell Disease, Hx Thyroid Disease, Hx Unexplained Bleeding, Other Endocrine/ Hematological Disorders Cardiovascular History: Denies: Hx Aneurysm, Hx Angina, Hx Angioplasty, Hx Auto Implanted Cardiovert Defib, Hx Cardiac Arrest, Hx Cardiomegaly, Hx Congenital Heart Disease, Hx Congestive Heart Failure, Hx Coronary Artery Disease, Hx Deep Vein Thrombosis, Hx Hypercholesterolemia, Hx Hypotension, Hx Hypertension, Hx Pacemaker/ICD, Hx Peripheral Vascular Disease, Hx Rheumatic Fever, Hx Syncope, Hx Valvular Heart Disease, Other Cardiovascular Problems/Disorders Respiratory History: Denies: Hx Asthma, Hx Bronchopulmonary Dysplasia, Hx Chronic Bronchitis, Hx Chronic Obstructive Pulmonary Disease (COPD), Hx Cystic Fibrosis, Hx Lung Cancer , Hx Pleural Effusion, Hx Pneumonia, Hx Pulmonary Edema, Hx Pulmonary Embolism, Hx Seasonal Allergies, Hx Sleep Apnea, Other Respiratory Problems/Disorders GI History: Reports: Hx Ileostomy - colostomy for buttocks wounds, Other GI Disorders - diverting colostomy Denies: Hx Cirrhosis, Hx Crohn's Disease, Hx Diverticulosis, Hx Gall Bladder Disease, Hx Gastroesophageal Reflux Disease, Hx Gastrointestinal Bleed, Hx Hiatal Hernia, Hx Irritable Bowel, Hx Jaundice, Hx Obstructive Bowel, Hx Pyloric Stenosis, Hx Ulcer History: Reports: Hx Kidney Stones, Hx Renal Disease - BAY D/T MS AND LACK OF MOBILITY, Other Problems/Disorders - frequent UTIs has indwelling bay Denies: Hx Acute Renal Failure, Hx Benign Prostatic Hyperplasia, Hx Chronic Renal Failure, Hx Dialysis, Hx Kidney Infection Musculoskeletal History: Reports: Other Musculoskeletal History - contractures of LE's, MS, Chronic Osteomyelitis Denies: Hx Arthritis, Hx Back Problems, Hx Bursitis, Hx Congenital Bone Abnormalities, Hx Fibromyalgia, Hx Gout, Hx Orthopedic Injury, Hx Osteoporosis, Hx Scoliosis, Hx Tendonitis Sensory History: Reports: Hx Contacts or Glasses Denies: Hx Cataracts, Hx Eye Injury, Hx Eye Prosthesis, Hx Glaucoma, Hx Macular Degeneration, Hx Vision Problem, Hx Deafness, Hx Hearing Aid Opthamlomology History: Reports: Hx Contacts or Glasses Denies: Hx Cataracts, Hx Eye Injury, Hx Eye Prosthesis, Hx Glaucoma, Hx Macular Degeneration, Hx Vision Problem Neurological History: Reports: Other Neuro Impairments/Disorders - MS Denies: Hx Dementia, Hx Developmental Delay, Hx Headaches, Hx Migraine, Hx Seizures, Hx Spinal Cord Injury, Hx Transient Ischemic Attacks (TIA) Psychiatric History: Reports: Hx Depression Denies: Hx Anxiety, Hx Attention Deficit Hyperactivity Disorder, Hx Autism, Hx Eating Disorder, Hx Oppositional [place] Disorder, Hx Panic Disorder, Hx Post Traumatic Stress Disorder, Hx Inpatient Treatment, Hx Community Mental Health Tx, Hx Schizophrenia, Hx Bipolar Disorder, Hx Suicide Attempt, Hx of Violent Episodes Against Others, Hx Substance Abuse, Other Psychiatric Issues/ Disorders - Surgical History Surgery Procedure, Year, and Place: 2009 at [place]-colostomy placement for non healing buttock wounds, , Appendectomy, Cholecystectomy Hx Anesthesia Reactions: No - Immunization History Date of Tetanus Vaccine: up to date Infectious Disease History: Yes Infectious Disease History: Reports: Hx of Known/Suspected MRSA - MRSA in sacral wound per pt. Denies: Hx Clostridium Difficile, Hx Hepatitis, Hx Human Immunodeficiency Virus (HIV), Hx Shingles, Hx Tuberculosis, Traveled Outside the [place] in Last 30 Days - Family History Known Family History: Positive: None, Cardiac Disease - [place], Diabetes - father Negative: Other - negative for MS Family History: R & n/C - Social History Occupation: Disabled Lives: Assisted Living Alcohol Use: None Hx Substance Use: No Substance Use Type: Reports: None Hx Tobacco Use: No Smoking Status (MU): Never Smoked Tobacco Review of Systems Positive: Fever. Negative: Chills Negative: Shortness Of Breath, Cough Positive: Other - negative melena Positive: flank pain - right flank pain Positive: Other - back pain All Other Systems Reviewed And Are Negative: Yes Physical Exam Vital Signs On Initial Exam: Initial Vitals Temp Pulse Resp BP Pulse Ox 99.4 F 115 19 105/85 95 10/13/17 12:15 10/13/17 12:15 10/13/17 12:15 10/13/17 12:15 10/13/17 12:15 Diagnostics - Vital Signs Vital Signs Temp Pulse Resp BP Pulse Ox 10/13/17 12:15 99.4 F 115 19 105/85 95 - Laboratory Lab Results: Lab Results 10/13/17 10/13/17 10/13/17 Range/Units 14:55 14:55 14:55 WBC 16.9 H (3.5-10.8) 10^3/ul RBC 4.76 (4.0-5.4) 10^6/ul Hgb 11.3 L (12.0-16.0) g/dl Hct 35 (35-47) % MCV 74 L (80-97) fL MCH 24 L (27-31) pg MCHC 32 (31-36) g/dl RDW 18 H (10.5-15) % Plt Count 564 H (150-450) 10^3/ul MPV 7 L (7.4-10.4) um3 Absolute Neuts (auto) 12.9 H (1.5-7.7) 10^3/ul Absolute Lymphs (auto) 2.3 (1.0-4.8) 10^3/ul Absolute Monos (auto) 1.0 H (0-0.8) 10^3/ul Absolute Eos (auto) 0.4 (0-0.6) 10^3/ul Absolute Basos (auto) 0.2 (0-0.2) 10^3/ul Absolute Nucleated RBC 0 10^3/ul ESR Pending INR (Anticoag Therapy) 1.07 (0.89-1.11) APTT 29.7 (26.0-36.3) seconds Sodium 134 (133-145) mmol/L Potassium 3.5 (3.5-5.0) mmol/L Chloride 102 (101-111) mmol/L Carbon Dioxide 25 (22-32) mmol/L Anion Gap 7 (2-11) mmol/L BUN 16 (6-24) mg/dL Creatinine 0.50 L (0.51-0.95) mg/dL Est GFR ( Amer) 157.3 (>60) Est GFR (Non-Af Amer) 122.3 (>60) BUN/Creatinine Ratio 32.0 H (8-20) Glucose 112 H (70-100) mg/dL Lactic Acid (0.5-2.0) mmol/L Calcium 9.3 (8.6-10.3) mg/dL Total Bilirubin 0.20 (0.2-1.0) mg/dL AST 21 (13-39) U/L ALT 23 (7-52) U/L Alkaline Phosphatase 172 H (34-104) U/L Troponin I 0.00 (<0.04) ng/mL C-Reactive Protein 131.43 H (< 5.00) mg/L Total Protein 7.9 (6.4-8.9) g/dL Albumin 3.5 (3.2-5.2) g/dL Globulin 4.4 H (2-4) g/dL Albumin/Globulin Ratio 0.8 L (1-3) 10/13/ Range/Units 14:55 WBC (3.5-10.8) 10^3/ul RBC (4.0-5.4) 10^6/ul Hgb (12.0-16.0) g/dl Hct (35-47) % MCV (80-97) fL MCH (27-31) pg MCHC (31-36) g/dl RDW (10.5-15) % Plt Count (150-450) 10^3/ul MPV (7.4-10.4) um3 Absolute Neuts (auto) (1.5-7.7) 10^3/ul Absolute Lymphs (auto) (1.0-4.8) 10^3/ul Absolute Monos (auto) (0-0.8) 10^3/ul Absolute Eos (auto) (0-0.6) 10^3/ul Absolute Basos (auto) (0-0.2) 10^3/ul Absolute Nucleated RBC 10^3/ul ESR INR (Anticoag Therapy) (0.89-1.11) APTT (26.0-36.3) seconds Sodium (133-145) mmol/L Potassium (3.5-5.0) mmol/L Chloride (101-111) mmol/L Carbon Dioxide (22-32) mmol/L Anion Gap (2-11) mmol/L BUN (6-24) mg/dL Creatinine (0.51-0.95) mg/dL Est GFR ( Amer) (>60) Est GFR (Non-Af Amer) (>60) BUN/Creatinine Ratio (8-20) Glucose (70-100) mg/dL Lactic Acid 0.9 (0.5-2.0) mmol/L Calcium (8.6-10.3) mg/dL Total Bilirubin (0.2-1.0) mg/dL AST (13-39) U/L ALT (7-52) U/L Alkaline Phosphatase (34-104) U/L Troponin I (<0.04) ng/mL C-Reactive Protein (< 5.00) mg/L Total Protein (6.4-8.9) g/dL Albumin (3.2-5.2) g/dL Globulin (2-4) g/dL Albumin/Globulin Ratio (1-3) Result Diagrams: 10/13/17 14:55 10/13/17 14:55 Lab Statement: Any lab studies that have been ordered have been reviewed, and results considered in the medical decision making process. - Radiology CXR Radiology Interpretation Completed By: Radiologist - CXR reveals NAD. ED physician has reviewed this radiology report and agrees. - CT Abd/Pain CT Interpretation Completed By: Radiologist - CT Abd/Pel, per radiologist, reveals 1. MILD RIGHT HYDROURETER WITHOUT APPRECIABLE NEPHROLITHIASIS. 2. SUBACUTE TO CHRONIC APPEARING FRACTURE OF THE RIGHT PROXIMAL FEMUR NEAR COMPARED TO 2016. 3. LARGE VENTRAL HERNIA. 4. FINDINGS CONSISTENT WITH DECUBITUS ULCERS. ED physician has reviewed this radiology report and agrees - EKG 1542 Cardiac Rate: Tachycardia EKG Rhythm: Sinus Tachycardia - 114 bpm EKG Interpretation: no STEMI, nl TN, nl QRS GIGU Course/Dx - Course Course Of Treatment: This patient is a 67 year old F presenting to [facility] from [facility], [place] with a chief complaint of right flank pain (pinching) since this morning. The patient rates the pain 4/10 in severity. Symptoms aggravated by movement and alleviated by nothing. Patient reports fever (100.5) and back pain. She denies melena, cough, SOB, and chills. She states she is currently not on steroids. CXR, per radiologist, reveals NAD. ED physician has reviewed this radiology report and agrees. CT Abd/Pel, per radiologist, reveals 1. MILD RIGHT HYDROURETER WITHOUT APPRECIABLE NEPHROLITHIASIS. 2. SUBACUTE TO CHRONIC APPEARING FRACTURE OF THE RIGHT PROXIMAL FEMUR NEAR COMPARED TO 2016. 3. LARGE VENTRAL HERNIA. 4. FINDINGS CONSISTENT WITH DECUBITUS ULCERS. ED physician has reviewed this radiology report and agrees. EKG reveals sinus tachy, 114 bpm, no STEMI, nl TN, nl QRS. [1545] consult Dr. Estrada (hospitalist) agrees to admit. [1550] consult Dr. Brasher (urology) discussed pt. The patient has sacral decubs, and UTI with fever, tachycardia. Admit to hosptialsits. IV antibiotics. - Diagnoses Provider Diagnoses: UTI (urinary tract infection), Sacral decubitus ulcer - Physician Notifications Discussed Care Of Patient With: Pepper Estrada - Hospitalist Time Discussed With Above Provider: 15:45 Instructed by Provider To: Admit As Inpatient Discharge - Discharge Plan Condition: Good Disposition: ADMITTED TO [facility] The documentation as recorded by the Ubaldo castellanos Nilda accurately reflects the service I personally performed and the decisions made by me, Jah Payton MD.
[2017-10-13] MEDS ORDERED: LORazepam TAB(*) 0.5 MG PO PRN (16:19)
[2017-10-13] MEDS ORDERED: Bisacodyl SUPP* 10 MG SUPP PR PRN (16:19)
[2017-10-13] MEDS ORDERED: Acetaminophen TAB* 325 MG PO PRN (16:27)
[2017-10-13] MEDS ORDERED: Meropenem 1 GM PREMIX(*) 1 GM/50 ML BAG IV SCH (17:00)
[2017-10-13] MEDS: NS 0.9% 1000 ML* 1,000 ML IV SCH (18:11)
--- NOTE | 2017-10-13 18:53 | HP ---
HISTORY AND PHYSICAL:* ADDENDUM: Ms. Jolynn Nation is a 67-year-old female with history of multiple sclerosis and paraplegia due to that. Consequently, she developed sacral decubitus. She also has neurogenic bladder and indwelling Borrego. She has history of frequent UTIs. She presented to the hospital today after she felt "kidney pain" after her Borrego was clogged and exchanged at [facility] yesterday. The patient was markedly tachycardic with leukocytosis. C- reactive protein was elevated at 131. She has a history of multiple UTIs with drug-resistant bacteria and she is going to be placed on meropenem. For further details of the patient's presentation and plan, please see history and physical of Brandy Rodríguez NP, dictated on 10/13/17, with which I agree. [id number] #: [id number] MTDD
[2017-10-13] MEDS: Senna TAB PO SCH (20:33)
[2017-10-13] MEDS: Docusate CAP* 100 MG PO SCH (20:34)
[2017-10-13] MEDS: LORazepam TAB(*) 1 MG PO SCH (20:34)
[2017-10-13] MEDS: Mirtazapine TAB* 15 MG PO SCH (20:34)
[2017-10-13] MEDS: Meropenem 1 GM PREMIX(*) 1 GM/50 ML BAG IV SCH (20:35)
[2017-10-13] MEDS: Enoxaparin(*) 40 MG/0.4 ML SYR SUBCUT SCH (20:35)
[2017-10-13] MEDS ORDERED: MELATONIN 5 MG PO SCH (21:00)
--- NOTE | 2017-10-13 21:07 | HP ---
ATTENDING PHYSICIAN ADDENDUM NOW INCLUDED ON THIS REPORT HISTORY AND PHYSICAL: DATE OF ADMISSION: 10/13/17 PRIMARY CARE PHYSICIAN: Dr. Ricketts at [facility]. ATTENDING PHYSICIAN: Pepper Estrada MD * (report dictated by Brandy Rodríguez NP). CHIEF COMPLAINT: Belly pain. HISTORY OF PRESENT ILLNESS: Ms. Nation is a 67-year-old female with a past medical history significant for multiple sclerosis, sacral decubitus with chronic osteomyelitis, depression, neurogenic bladder, constipation, history of nephrolithiasis and recurrent UTIs, who presented to the emergency room with a complaint of right kidney pain and abdominal pain. The patient states yesterday evening, she started to develop right-sided belly pain as well as kidney pain. She had both Tylenol and tramadol without much relief. She has a chronic indwelling Borrego catheter and she noticed there was no urine coming out of it. The nurses tried to flush the catheter without success, and the catheter was exchanged and was able to drain again. In addition, the patient stated she had a fever of 100.5, decreased appetite, and pain radiating to her shoulders. The patient was at the wound clinic today to see Dr. Loera and was told that her wounds are looking better, but the patient stated that she did not feel well so Dr. Loera sent her to the emergency room for further evaluation. In the emergency room, the patient was found to have elevated white blood cell count at 16.9, tachycardic with a rate of 119, temperature 99.4 and urinalysis was positive for esterase and wbc's. Hospitalists were asked to evaluate this patient for admission. The patient will be admitted for sepsis on admission from urinary tract infection. PAST MEDICAL HISTORY: 1. Multiple sclerosis. 2. Neurogenic bladder with chronic Borrego. 3. Sacral decubitus with chronic osteomyelitis. 4. Depression. 5. Constipation. 6. Nephrolithiasis. 7. Recurrent UTIs. 8. History of colostomy. 9. Status post cholecystectomy. 10. Status post appendectomy. 11. Status post . 12. Status post right renal surgery, stent at [facility] 2 years ago. MEDICATIONS: At the time of admission include: 1. Tylenol 100 mg oral every 8 hours as needed. 2. MiraLax 17 g oral daily. 3. Multivitamin 1 tablet oral daily. 4. Biotin 1000 mcg oral daily. 5. Melatonin 5 mg oral at bedtime. 6. Ditropan XL 50 mg oral daily. 7. Dulcolax 10 mg p.r. daily as needed. 8. Effexor 225 mg oral daily. 9. Senna 2 tablets oral twice daily. 10. Probiotic 1 capsule oral daily. 11. Colace 200 mg oral at bedtime. 12. Ativan 0.5 mg daily as needed. 13. Ativan 1 mg oral at bedtime. 14. Remeron 7.5 mg oral at bedtime. 15. Vitamin D 2000 units oral daily. 16. Lidocaine 1 application topical daily. 17. Acetic acid 30 mL to flush Borrego daily. ALLERGIES: CYMBALTA, MORPHINE, and PERCOCET. FAMILY HISTORY: Father had a history of diabetes. Sister and brother had a history of coronary artery disease. SOCIAL HISTORY: No history of tobacco, alcohol or drug use. She is a resident at [facility]. Surrogate decision maker is her daughter, oSbeida Beavers, phone number [phone]. REVIEW OF SYSTEMS: I performed a 14-point review of systems. All the pertinent positives are mentioned in the history of present illness. The remaining review of systems are negative. PHYSICAL EXAMINATION GENERAL APPEARANCE: The patient is alert, appeared to be in no apparent distress. VITAL SIGNS: Temperature 99.4, heart rate 115, respiratory rate 19, oxygen saturation 95% on room air, blood pressure 105/85. HEENT: Normocephalic/atraumatic. Pupils are equal, reactive to light. Mucous membranes are dry. NECK: Supple. There was no lymphadenopathy noted. RESPIRATORY: There was no accessory muscle use. Lungs were clear to auscultation. CARDIAC: S1 and S2 were crisp. There were no murmurs, rubs, or gallops heard. ABDOMEN: Soft, nontender, and nondistended. There was right CVA tenderness and mild right upper quadrant tenderness. EXTREMITIES: Lower extremities are contracted. MUSCULOSKELETAL: There was no clubbing or cyanosis noted. The patient exhibited equal strength in all extremities. NEURO: Cranial nerves II through XII were intact. The patient is able to move both of her upper extremities. Movement is limited on lower extremities with spasticity. PSYCH: The patient is alert, oriented x3. SKIN: The patient's sacrum area appears to be healing with no foul smell or significant erythema. NEUROLOGIC: Cranial nerves II through XII were intact. The patient moves all extremities. Lower extremities were intact to light touch. PSYCH: The patient is alert and oriented to self only. DIAGNOSTIC STUDIES/LAB DATA: Sodium 134, potassium 3.5, chloride 102, CO2 25, BUN 16, creatinine 0.5, glucose 112, lactic acid 0.9. Liver function test within normal limits. Alk phos 172; her alk phos runs in the 100s. CRP 131. White blood cell count 16.9, hemoglobin 11.3, hematocrit 35, MCV 74, platelet count 564,000. INR 1.0, PTT 29.7. Urinalysis shows 1+ protein, trace ketones, 1 + blood, 3+ esterase, 3+ wbc's, 1+ blood, 1+ bacteria. Chest x-ray from today reads no radiographic evidence for cardiopulmonary abnormality on this portable chest x-ray. CT scan of the abdomen and pelvis without contrast from today, mild right hydroureter without appreciable nephrolithiasis, subacute to chronic appearing fracture of the right proximal femur compared to 08/25/17, large ventral hernia with findings consistent with decubitus ulcers. EKG from today reads sinus tachycardia with a rate of 114. IMPRESSION: Ms. Nation is a 67-year-old lady with past medical history of multiple sclerosis, neurogenic bladder with chronic Borrego, sacral decubitus with chronic osteomyelitis, depression, recurrent urinary tract infections, nephrolithiasis who presented to the emergency room with low-grade temperature, right costovertebral angle tenderness and malaise suggestive of urinary tract infection. PLAN: 1. Sepsis from urinary tract infection. The patient meets sepsis criteria on admission with tachycardia and leukocytosis, source is most likely urinary tract infection. The patient's urinalysis is abnormal, but she does have a chronic Borrego. Her last urine culture from 08/25/17 grew Proteus mirabilis and pseudomonas that were only sensitive to meropenem. During that admission, she was placed on Zosyn and then transitioned to oral Levaquin under the direction of Infectious Disease and discharged on oral Levaquin. Based on the sensitivities, I will place her on meropenem. She has had blood cultures as well as urine cultures drawn and we will await final sensitivity to tailor antibiotics further. Another possible source would be her decubitus from chronic osteomyelitis, yet at this point it appears that her wound is improving , and it seems unlikely that this is the source of infection. In regards to the right flank pain, the patient had a CT scan that does not show any nephrolithiasis at this time. 2. Sacral decubitus ulcer with chronic osteo, unlikely this is the source of infection. Twice a day wound care will continue with Medihoney and ABD covering. 3. Chronic constipation. Continue current bowel regimen. 4. Depression. Continue Effexor. 5. DVT prophylaxis. The patient is high risk. She will be given subcutaneous Lovenox. 6. Fluids, electrolytes, and nutrition. The patient will have a regular diet. 7. Code status is full. TIME SPENT: Time for this admission was 60 minutes, and 35 minutes was spent with the patient discussing medications and events leading up to her arrival in the emergency room. Reviewed by BRANDY RODRÍGUEZ NP 10/14/2017 1130 ADDENDUM: Ms. Jolynn Nation is a 67-year-old female with history of multiple sclerosis and paraplegia due to that. Consequently, she developed sacral decubitus. She also has neurogenic bladder and indwelling Borrego. She has history of frequent UTIs. She presented to the hospital today after she felt "kidney pain" after her Borrego was clogged and exchanged at [facility] yesterday. The patient was markedly tachycardic with leukocytosis. C-reactive protein was elevated at 131. She has a history of multiple UTIs with drug-resistant bacteria and she is going to be placed on meropenem. For further details of the patient's presentation and plan, please see history and physical of Brandy Rodríguez NP, dictated on 10/13/17, with which I agree. PEPPER ESTRADA MD [id number]/CPS #: [id number]/CPS #: [id number] SACHIN
[2017-10-13] MEDS ORDERED: CMCS: Melatonin (NF) 3 MG TAB PO PRN (23:37)
[2017-10-14] MEDS: NS 0.9% 1000 ML* 1,000 ML IV SCH (04:02)
[2017-10-14] MEDS: Meropenem 1 GM PREMIX(*) 1 GM/50 ML BAG IV SCH ×3 (04:02→19:50)
[2017-10-14 07:34] LABS: Hematocrit 29 % (35-47); Hemoglobin 9.3 g/dl (12.0-16.0); Mean Corpuscular HGB Conc 32 g/dl (31-36); Mean Corpuscular Hemoglobin 24 pg (27-31); Mean Platelet Volume 7 um3 (7.4-10.4); Red Blood Count 3.93 10^6/ul (4.0-5.4); Red Cell Distribution Width 18 % (10.5-15); White Blood Count 9.8 10^3/ul (3.5-10.8)
[2017-10-14 07:36] LABS: Comments Flag Yes
[2017-10-14 07:37] LABS: Mean Corpuscular Volume 74 fL (80-97)
[2017-10-14 07:48] LABS: BUN/Creatinine Ratio 22.5 (8-20); Calcium 8.2 mg/dL (8.6-10.3); EGFR African American 203.5 (>60); EGFR Non-African American 158.3 (>60); Potassium 3.1 mmol/L (3.5-5.0)
--- NOTE | 2017-10-14 08:32 | RAD ---
INDICATION: Right-sided hydronephrosis COMPARISON: CT October 13, 2017 TECHNIQUE: Longitudinal and transverse scans of the right kidney were obtained. FINDINGS: Right kidney: The right kidney is normal in size and echogenicity. There is no hydronephrosis. The right ureter is not well evaluated. The right kidney measures 9.3 x 4.5 x 4.1 cm. Other: The bladder was empty. A jet could therefore not be visualized IMPRESSION: NO EVIDENCE OF HYDRONEPHROSIS. RIGHT URETER NOT WELL EVALUATED.
[2017-10-14] MEDS: Acetic Acid 0.25%* 250 ML BTL IRRIGATION SCH (09:24)
[2017-10-14] MEDS: Polyethylene Glycol 3350* 17 GM PACKET PO SCH (09:35)
[2017-10-14] MEDS: Venlafaxine EXT RELEASE CAP* 75 MG PO SCH (09:36)
[2017-10-14] MEDS: Multivitamins/Minerals TAB PO SCH (09:37)
[2017-10-14] MEDS: Senna TAB PO SCH ×2 (09:37→22:06)
[2017-10-14] MEDS: Lactobacillus Acidophilu (GG)* 1 CAP CAP PO SCH (09:37)
[2017-10-14] MEDS: Cholecalciferol TAB* 1000 UNITS PO SCH (09:37)
[2017-10-14] MEDS: Oxybutynin XL TAB* 5 MG PO SCH (09:37)
[2017-10-14] MEDS: Lidocaine 2% JELLY* 6 ML JELLY TOPICAL SCH (10:38)
--- NOTE | 2017-10-14 14:23 | PN ---
Subjective Date of Service: 10/14/17 Interval History: Pt has no new complaints. Borrego bag with straw colored urine. Objective Active Medications: Acetaminophen (Tylenol Tab*) 650 mg PO Q4H PRN PRN Reason: PAIN Acetic Acid (Acetic Acid 0.25%*) 30 ml IRRIGATION DAILY [facility] Last Admin: 10/14/17 09:24 Dose: 30 [email or web address] eugenia Bisacodyl (Dulcolax Supp*) 10 mg CA DAILY PRN PRN Reason: CONSTIPATION Cholecalciferol (Vitamin D Tab*) 2,000 units PO DAILY [facility] Last Admin: 10/14/17 09:37 Dose: 2,000 units Docusate Sodium (Colace Cap*) 200 mg PO BEDTIME [facility] Last Admin: 10/13/17 20:34 Dose: 200 mg Enoxaparin Sodium (Lovenox(*)) 40 mg SUBCUT 2100 [facility] Last Admin: 10/13/17 20:35 Dose: 40 mg Sodium Chloride (Ns 0.9% 1000 Ml*) 1,000 mls @ 125 mls/hr IV PER RATE [facility] Stop: 10/14/17 23:59 Last Admin: 10/14/17 04:02 Dose: 125 mls/hr Meropenem (Merrem 1 Gm Premix(*)) 1 gm in 50 mls @ 100 mls/hr IV 0400,1200, 2000 [facility] Last Admin: 10/14/17 12:24 Dose: 100 mls/hr Lactobacillus Rhamnosus (Culturelle*) 1 cap PO DAILY [facility] Last Admin: 10/14/17 09:37 Dose: 1 cap Lidocaine HCl (Lidocaine 2% Jelly*) 1 applic TOPICAL DAILY [facility] Last Admin: 10/14/17 10:38 Dose: 1 applic Lorazepam (Ativan Tab(*)) 0.5 mg PO DAILY PRN PRN Reason: ANXIETY Lorazepam (Ativan Tab(*)) 1 mg PO BEDTIME [facility] Last Admin: 10/13/17 20:34 Dose: 1 mg Melatonin (Melatonin (Nf)) 3 mg PO BEDTIME PRN; Protocol PRN Reason: SLEEP Mirtazapine (Remeron Tab*) 7.5 mg PO BEDTIME [facility] Last Admin: 10/13/17 20:34 Dose: 7.5 mg Multivitamins/Minerals (Theragran/Minerals Tab*) 1 tab PO DAILY [facility] Last Admin: 10/14/17 09:37 Dose: 1 tab Oxybutynin Chloride (Ditropan Xl Tab*) 15 mg PO DAILY [facility] Last Admin: 10/14/17 09:37 Dose: 15 mg Polyethylene Glycol/Electrolytes (Miralax*) 17 gm PO DAILY [facility] Last Admin: 10/14/17 09:35 Dose: 17 gm Senna (Senokot Tab*) 2 tab PO BID [facility] Last Admin: 10/14/17 09:37 Dose: 2 tab Venlafaxine HCl (Effexor Xr Cap*) 225 mg PO DAILY [facility] Last Admin: 10/14/17 09:36 Dose: 225 mg Vital Signs 10/13/17 10/13/17 10/13/17 15:57 16:00 16:02 Temperature Pulse Rate 109 110 Respiratory Rate Blood Pressure 109/47 80/63 (mmHg) O2 Sat by Pulse 97 96 Oximetry 10/13/17 10/13/17 10/13/17 16:18 17:10 19:50 Temperature 98.8 F 98.6 F Pulse Rate 108 103 Respiratory 18 16 Rate Blood Pressure 99/49 127/90 130/66 (mmHg) O2 Sat by Pulse 97 97 Oximetry 10/13/17 10/13/17 10/13/17 20:30 20:34 20:45 Temperature Pulse Rate Respiratory 18 16 Rate Blood Pressure (mmHg) O2 Sat by Pulse 94 Oximetry 10/13/17 10/14/17 10/14/17 23:46 00:01 04:45 Temperature 98.5 F 97.6 F Pulse Rate 106 87 Respiratory 16 16 16 Rate Blood Pressure 116/58 109/51 (mmHg) O2 Sat by Pulse 97 96 Oximetry 10/14/17 10/14/17 07:49 08:00 Temperature 98.6 F Pulse Rate 88 Respiratory 19 18 Rate Blood Pressure 119/60 (mmHg) O2 Sat by Pulse 96 96 Oximetry Oxygen Devices in Use Now: None Appearance: 67 yo F in NAD, AAOx3 Eyes: No Scleral Icterus, PERRLA Ears/Nose/Mouth/Throat: NL Teeth, Lips, Gums, Mucous Membranes Moist Neck: NL Appearance and Movements; NL JVP, Trachea Midline Respiratory: Symmetrical Chest Expansion and Respiratory Effort, Clear to Auscultation Cardiovascular: NL Sounds; No Murmurs; No JVD, RRR Abdominal: - - L colsostomy with parastomal hernia, soft, NT, BS+ Lymphatic: No Cervical Adenopathy Extremities: No Edema, No Clubbing, Cyanosis, - - LE's contracted, paralysed Skin: No Nodules or Sclerosis, - - large at 12x12 cm R sacral decub stage 3-4 right -partially covered with skin, with several opened areas oozing blood, left buttock stage 2 at 12 cm in diam. Multiple small wounds on legs stage 2 at 1-2 cm in diam. none of the decubs appear infected Neurological: Alert and Oriented x 3, - - paraplegic with LE's contracted Result Diagrams: 10/14/17 06:39 10/14/17 06:39 Additional Lab and Data: Lab Results 10/13/17 10/13/17 10/13/17 Range/Units 14:55 14:55 14:55 WBC 16.9 H (3.5-10.8) 10^3/ul RBC 4.76 (4.0-5.4) 10^6/ul Hgb 11.3 L (12.0-16.0) g/dl Hct 35 (35-47) % MCV 74 L (80-97) fL MCH 24 L (27-31) pg MCHC 32 (31-36) g/dl RDW 18 H (10.5-15) % Plt Count 564 H (150-450) 10^3/ul MPV 7 L (7.4-10.4) um3 Absolute Neuts (auto) 12.9 H (1.5-7.7) 10^3/ul Absolute Lymphs (auto) 2.3 (1.0-4.8) 10^3/ul Absolute Monos (auto) 1.0 H (0-0.8) 10^3/ul Absolute Eos (auto) 0.4 (0-0.6) 10^3/ul Absolute Basos (auto) 0.2 (0-0.2) 10^3/ul Absolute Nucleated RBC 0 10^3/ul ESR Pending INR (Anticoag Therapy) 1.07 (0.89-1.11) APTT 29.7 (26.0-36.3) seconds Sodium 134 (133-145) mmol/L Potassium 3.5 (3.5-5.0) mmol/L Chloride 102 (101-111) mmol/L Carbon Dioxide 25 (22-32) mmol/L Anion Gap 7 (2-11) mmol/L BUN 16 (6-24) mg/dL Creatinine 0.50 L (0.51-0.95) mg/dL Est GFR ( Amer) 157.3 (>60) Est GFR (Non-Af Amer) 122.3 (>60) BUN/Creatinine Ratio 32.0 H (8-20) Glucose 112 H (70-100) mg/dL Lactic Acid (0.5-2.0) mmol/L Calcium 9.3 (8.6-10.3) mg/dL Total Bilirubin 0.20 (0.2-1.0) mg/dL AST 21 (13-39) U/L ALT 23 (7-52) U/L Alkaline Phosphatase 172 H (34-104) U/L Troponin I 0.00 (<0.04) ng/mL C-Reactive Protein 131.43 H (< 5.00) mg/L Total Protein 7.9 (6.4-8.9) g/dL Albumin 3.5 (3.2-5.2) g/dL Globulin 4.4 H (2-4) g/dL Albumin/Globulin Ratio 0.8 L (1-3) 10/13/ Range/Units 14:55 WBC (3.5-10.8) 10^3/ul RBC (4.0-5.4) 10^6/ul Hgb (12.0-16.0) g/dl Hct (35-47) % MCV (80-97) fL MCH (27-31) pg MCHC (31-36) g/dl RDW (10.5-15) % Plt Count (150-450) 10^3/ul MPV (7.4-10.4) um3 Absolute Neuts (auto) (1.5-7.7) 10^3/ul Absolute Lymphs (auto) (1.0-4.8) 10^3/ul Absolute Monos (auto) (0-0.8) 10^3/ul Absolute Eos (auto) (0-0.6) 10^3/ul Absolute Basos (auto) (0-0.2) 10^3/ul Absolute Nucleated RBC 10^3/ul ESR INR (Anticoag Therapy) (0.89-1.11) APTT (26.0-36.3) seconds Sodium (133-145) mmol/L Potassium (3.5-5.0) mmol/L Chloride (101-111) mmol/L Carbon Dioxide (22-32) mmol/L Anion Gap (2-11) mmol/L BUN (6-24) mg/dL Creatinine (0.51-0.95) mg/dL Est GFR ( Amer) (>60) Est GFR (Non-Af Amer) (>60) BUN/Creatinine Ratio (8-20) Glucose (70-100) mg/dL Lactic Acid 0.9 (0.5-2.0) mmol/L Calcium (8.6-10.3) mg/dL Total Bilirubin (0.2-1.0) mg/dL AST (13-39) U/L ALT (7-52) U/L Alkaline Phosphatase (34-104) U/L Troponin I (<0.04) ng/mL C-Reactive Protein (< 5.00) mg/L Total Protein (6.4-8.9) g/dL Albumin (3.2-5.2) g/dL Globulin (2-4) g/dL Albumin/Globulin Ratio (1-3) Assess/Plan/Problems-Billing Assessment: Mrs. Nation is a 66yo F with PMH of MS, neurogenic bladder with chronic Borrego, sacral decubitus with chronic osteomyelitis, depression, nephrolithiasis, recurrent UTIs, who was found to have catheter associated UTI. - Patient Problems (1) UTI (urinary tract infection) Comment: - Borrego catheter associated, present on admission. - Urine culture growing Proteus. - Continue Merrem till sensitivities come back - CT abdomen/pelvis was negative for nephrolithiasis or hydronephrosis.Noted hydroureter on CT was not visualized well on repeat US. (2) Closed right hip fracture Comment: incidental finding, but new c/o with 08/25/17 CT. Pt c/o no pain, was not aware that her hip was fractured, and does not recall any trauma. suspect the hip fractured during repositioning of contracted extremity. D/w Dr. Martinez, plain films ordered. Ortho will see pt in consult (3) Peristomal hernia Comment: The patient has a known peristomal hernia that has needed decompression in the past. Regular BM's now (4) Sacral decubitus ulcer, stage IV Comment: - Present on admission.On b/l buttocks and sacrum R>L - Seems to be better than on prior admissions. -wound consult ordered. cont medihoney. 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 Nothing to do at this time. She resides at [facility]. (6) Alkaline phosphatase raised Comment: possibly due to chronic osteo and hip fracture (7) DVT prophylaxis Comment: lovenox Status and Disposition: inpatient
[2017-10-14] MEDS ORDERED: Potassium Chlor TAB* 20 MEQ TAB.ER PO ONE (15:19)
--- NOTE | 2017-10-14 16:30 | RAD ---
INDICATION: Right hip fracture. COMPARISON: Comparison is made with a prior CT of the abdomen and pelvis from October 13, 2017. TECHNIQUE: An AP view of the pelvis and frontal and lateral views of the right hip were obtained. FINDINGS: The bones are grossly osteoporotic. There is a fracture which appears to involve the right femoral neck and proximal intertrochanteric region which is better seen on the prior CT study. The bones are in marked varus angulation. IMPRESSION: ANGULATED FRACTURE OF THE PROXIMAL RIGHT FEMUR.
--- NOTE | 2017-10-14 19:25 | PN ---
Progress Note - Progress Note Date of Service: 10/14/17 Note: Cross cover: Called by RN concerning tachycardia EKG notable for sinus tachycardia Reviewed I/O (accurate with harman) and patient net negative balance with current infection Patient has been tachycardic consistently this hospital stay. Suspect volume medicated. She does have moderate systolic dysfunction and noted diastolic dysfunction on old echo. Will order normal saline at 150cc/hr for 2 liters with attention to respiratory status. Discussed with overnight coverage.
[2017-10-14] MEDS ORDERED: NS 0.9% 1000 ML* 1,000 ML IV SCH (19:30)
[2017-10-14] MEDS: Enoxaparin(*) 40 MG/0.4 ML SYR SUBCUT SCH ×2 (22:06→22:15)
[2017-10-14] MEDS: Docusate CAP* 100 MG PO SCH (22:11)
[2017-10-15] MEDS: LORazepam TAB(*) 1 MG PO SCH (00:32)
[2017-10-15] MEDS: Mirtazapine TAB* 15 MG PO SCH (00:33)
[2017-10-15] MEDS: Meropenem 1 GM PREMIX(*) 1 GM/50 ML BAG IV SCH ×2 (04:57→12:50)
[2017-10-15 07:53] LABS: Hematocrit 30 % (35-47); Hemoglobin 9.5 g/dl (12.0-16.0); Mean Corpuscular HGB Conc 31 g/dl (31-36); Mean Corpuscular Hemoglobin 23 pg (27-31); Mean Platelet Volume 7 um3 (7.4-10.4); Red Cell Distribution Width 18 % (10.5-15); White Blood Count 10.2 10^3/ul (3.5-10.8)
[2017-10-15 07:54] LABS: Comments Flag Yes; Mean Corpuscular Volume 74 fL (80-97)
[2017-10-15 07:57] LABS: BUN/Creatinine Ratio 16.3 (8-20); Calcium 8.8 mg/dL (8.6-10.3); EGFR African American 187.2 (>60); EGFR Non-African American 145.6 (>60); Potassium 3.9 mmol/L (3.5-5.0)
[2017-10-15 08:06] VITALS: BP 122/57
[2017-10-15] MEDS: Lidocaine 2% JELLY* 6 ML JELLY TOPICAL SCH (09:16)
[2017-10-15] MEDS: Lactobacillus Acidophilu (GG)* 1 CAP CAP PO SCH (09:26)
[2017-10-15] MEDS: Venlafaxine EXT RELEASE CAP* 75 MG PO SCH (09:27)
[2017-10-15] MEDS: Oxybutynin XL TAB* 5 MG PO SCH (09:27)
[2017-10-15] MEDS: Polyethylene Glycol 3350* 17 GM PACKET PO SCH (09:27)
[2017-10-15] MEDS: Senna TAB PO SCH (09:28)
[2017-10-15] MEDS: Cholecalciferol TAB* 1000 UNITS PO SCH (09:28)
[2017-10-15] MEDS: Multivitamins/Minerals TAB PO SCH (09:28)
[2017-10-15] MEDS: Acetic Acid 0.25%* 250 ML BTL IRRIGATION SCH (09:39)
--- NOTE | 2017-10-15 13:29 | DS ---
CC: [facility], Dr. Martinez * DISCHARGE SUMMARY: DATE OF ADMISSION: 10/13/17. DATE OF DISCHARGE: 10/15/17 PRIMARY CARE PROVIDER: A physician from [facility]. DISCHARGE DIAGNOSES: 1. Proteus mirabilis UTI, Borrego associated. 2. Subacute to chronic right proximal femur fracture. SECONDARY DIAGNOSES: 1. History of multiple sclerosis and resultant paraplegia. 2. History of neurogenic bladder with indwelling Borrego. 3. History of right sacral decubitus and chronic osteomyelitis. 4. Depression. 5. Constipation. 6. History of colostomy placement with parastomal hernia. 7. History of nephrolithiasis. 8. History of appendectomy. 9. History of right kidney surgery, Hospital 2 years ago. MEDICATIONS AT DISCHARGE: Include cefdinir 300 mg p.o. b.i.d. for a total of 5 days. The remaining medications are unchanged and include: 1. Acetaminophen 1000 mg on a p.r.n. basis every 8 hours. 2. Acetic acid, Borrego instillations of 250 mL daily as previously used. 3. Biotin 1000 micrograms daily. 4. Dulcolax suppository 10 mg on a p.r.n. basis. 5. Vitamin D3 at 2000 units daily. 6. Colace 200 mg at bedtime. 7. Probiotic 1 capsule daily. 8. Lorazepam 0.5 mg at bedtime and on a p.r.n. basis. 9. Melatonin 5 mg at bedtime. 10. Remeron 7.5 mg at bedtime. 11. Ditropan XL 50 mg daily. 12. MiraLAX 17 g daily p.r.n. 13. Senokot 2 tablets b.i.d. 14. Effexor XR 225 mg daily. LABORATORY DATA AND STUDIES PERFORMED DURING THE HOSPITAL STAY: Included: On 10/15/17, white blood cell count 10.2, hemoglobin 9.5, hematocrit 30, MCV 74 and platelets of 433. Sodium 137, potassium of 3.9, chloride 107, carbon dioxide of 54, BUN 7, creatinine 0.43. Urine microbiology tests are positive for up to 250,000 colonies of Proteus mirabilis with sensitivities pending. CT of abdomen and pelvis obtained on admission, impression: "Mild right hydroureter without appreciable nephrolithiasis. Subacute to chronic appearing fracture of the right proximal femur, new compared to 08/25/17. Large ventral hernia. Findings consistent with decubitus ulcers." Subsequent renal ultrasound on the right, impression: "No evidence of hydronephrosis. Right ureter not well visualized." Hip x-ray on the right, impression: "Angulated fracture of the proximal right femur." CONSULTATIONS DURING THE HOSPITAL STAY: Included Dr. Martinez from Orthopedic Surgery. HOSPITALIZATION COURSE: Jolynn Nation is a 67-year-old female with history of multiple sclerosis who is known to us from previous multiple hospital stays. Patient has indwelling Borrego in place. She notes that that her Borrego was clogged at some point and was exchanged by a [facility] staff several hours later. Nevertheless, she presented with leukocytosis and abdominal pain. She was diagnosed with UTI and treated with broad-spectrum antibiotics. Her cultures are growing proteus, and she is going to be discharged on 3rd generation cephalosporins to home. Please note that sensitivities are still pending. Incidentally, it was noted on her CT of the abdomen that patient has right proximal femur fracture. Patient was aware of the femur fracture in the past but it appears to be new compared with a CT obtained a month and a half ago. I asked Dr. Martinez to comment on that from Orthopedic Surgery. Dr. Martinez thought that patient is not in pain and her right lower extremity is not functional and contracted. He thought that the risk of the surgery would outweigh the benefit. Please also note that as outpatient in the [facility], patient had been evaluated by an orthopedic surgeon in [place] who apparently offered patient surgery. The patient at this point is weighing risks and benefits of undergoing surgery which if it were to be happening, it would be in [place], [place]. The patient is being discharged home with recommendation to continue her antibiotics orally for another 5 days. PHYSICAL EXAMINATION: At the time of discharge, blood pressure of 122/57, heart rate of 99 and regular, respiratory rate 22, oxygen saturation 96% on room air, temperature 98.6. General: This is a pleasant 67-year-old female who is in no acute distress. Alert, awake, and oriented x3. HEENT: Head is atraumatic, normocephalic. Eyes: Pupils are equal, reactive to light and accommodation. Oropharynx is clear. Mucosa moist. Neck: Supple, no JVD. No bruits bilaterally. Cardiovascular: Regular rate and rhythm. No murmurs. Respiratory: Clear to auscultation bilaterally. Abdomen: Soft, nontender, bowel sounds present in all 4 quadrants. The colostomy is noted in the left lower quadrant with parastomal hernia that is nontender to palpation. Colostomy bag has liquid stool in it. Extremities: Contracted. There is no edema in both lower extremities. Evaluation of the skin, the patient has large bilateral buttock/sacrum decubiti. The right side is more prominent at approximately 12 cm in diameter. It is now mostly healed and covered with the skin, but it is still boggy and noted several areas of open wounds draining serosanguineous fluid. The entire decubitus would be stage 3. The left side of the left buttock and sacral area, patient has another area of approximately 10 cm in diameter that has closed skin, but rather dusky appearing. It is at least stage 2 decubitus. Patient has several small decubiti noted on bilateral legs, one on her right distal extremity, one between her knees. All of them were approximately 1 to 2 cm in diameter and stage 2. All not infected. Neuro Evaluation: Patient is paraplegic and contracted in bilateral lower extremities. Bilateral upper extremities are 5/5 in motor strength. Patient's cranial nerves II through XII are grossly intact. Psychiatric Evaluation: Patient is pleasant, oriented x3, with no evidence of anxiety or depression. In regards to the patient's would care at [facility], patient is to continue Medihoney with ABD pad covers and change b.i.d. as needed if it is soaked. Patient also is recommended to have air mattress and turned, repositioned every 2 hours. Please note that this is a short summary of patient' s hospitalization. Please refer to further medical records for details. TIME SPENT: Approximately 40 minutes was spent on the patient's discharge. [id number]/[facility] #: [id number] [facility] CENTERVannessa
== END 2017-10-15 14:00 | DRG 871 ==
LOC: ED 12:08 → MED 15:49
PROVIDERS: ADMIT Internal Medicine; ATTEND Internal Medicine
DX: A41.9 Sepsis, unspecified organism (principal); L89.153 Pressure ulcer of sacral region, stage 3; R53.2 Functional quadriplegia; G35 Multiple sclerosis; N39.0 Urinary tract infection, site not specified; M86.68 Other chronic osteomyelitis, other site; S72.001K Fracture of unspecified part of neck of right femur, subsequent encounter for closed fracture with nonunion; N31.9 Neuromuscular dysfunction of bladder, unspecified; B96.4 Proteus (mirabilis) (morganii) as the cause of diseases classified elsewhere; L89.892 Pressure ulcer of other site, stage 2; F32.9 Major depressive disorder, single episode, unspecified; K59.00 Constipation, unspecified; Z93.3 Colostomy status; Z79.1 Long term (current) use of non-steroidal anti-inflammatories (NSAID); Z79.899 Other long term (current) drug therapy; Z88.5 Allergy status to narcotic agent; Z88.8 Allergy status to other drugs, medicaments and biological substances; Z83.3 Family history of diabetes mellitus; Z82.49 Family history of ischemic heart disease and other diseases of the circulatory system; Z74.01 Bed confinement status; X58.XXXD Exposure to other specified factors, subsequent encounter
CPT/HCPCS: 36415; 71010; 74176; 76775; 80048; 80053; 81003; 81015; 83605; 84484; 85025; 85027; 85610; 85652; 85730; 86140; 87040; 87077; 87086; 87186; 87502; 93005; A9270-GY; J0692; J1650; J2185; J3370

== ENCOUNTER 2017-11-27 22:34 | Emergency (ER) | payer MEDICARE, MEDICAID ==
[2017-11-27] MEDS ORDERED: Ciprofloxacin TAB* 500 MG PO ONE (23:10)
--- NOTE | 2017-11-28 00:11 | ED ---
GI/ HPI - HPI Summary HPI Summary: Patient presents to the ED BIBA with CC of UTI x 1 week. She states she has been telling her staff, but they have not helped her. Patient lives at [facility] and is straight cath'd for urine for neurogenic bladder. Urgency, frequency, burning upon urination. Dark colored, cloudy urine. Endorses right flank pain which is baseline for her. Denies diaphoresis and chills. Denies known fever. No abnormal vaginal discharge reported. Otherwise healthy. Patient has recurrent UTI's most of which bacteria has grown as Proteus Mirabilus or Pseudomonas. She has been resistant to many antibiotics in the past. She is OK with labs to be obtained, but denies fluids/IV. She is tachy , but afebrile with other VS stable. - History of Current Complaint Chief Complaint: EDGeneral Time Seen by Provider: 11/27/17 22:39 Stated Complaint: UTI-LIKE SYMPTOMS Hx Obtained From: Patient, Family/[employer] Onset/Duration: Started Hours Ago Timing: Constant Severity: Moderate Pain Intensity: 6 Location of Pain: Suprapubic, Flank Pain Characteristics: Cramping Associated Signs and Symptoms: Positive: UTI Symptoms Aggravating Factor(s): Urination Alleviating Factor(s): Nothing - Additional Pertinent History Primary Care Physician: SHIRLEY - Allergy/Home Medications Allergies/Adverse Reactions: Allergies Allergy/AdvReac Type Severity Reaction Status Date / Time CI Pigment Blue 63 Allergy Unknown Verified 05/23/17 22:02 [From Cymbalta] Reaction Details Duloxetine [From Cymbalta] Allergy Unknown Verified 05/23/17 22:02 Reaction Details Morphine Allergy Unknown Verified 05/23/17 22:02 Reaction Details Oxycodone [From Percocet] Allergy Unknown Verified 05/23/17 22:02 Reaction Details PMH/Surg Hx/FS Hx/Imm Hx Previously Healthy: No Endocrine/Hematology History: Reports: Hx Anemia Denies: Hx Anticoagulant Therapy, Hx Blood Disorders, Hx Blood Transfusions, Hx Bone Marrow Disease, Hx Diabetes, Hx Systemic Lupus Erythematosus, Hx Sickle Cell Disease, Hx Thyroid Disease, Hx Unexplained Bleeding, Other Endocrine/ Hematological Disorders Cardiovascular History: Denies: Hx Aneurysm, Hx Angina, Hx Angioplasty, Hx Auto Implanted Cardiovert Defib, Hx Cardiac Arrest, Hx Cardiomegaly, Hx Congenital Heart Disease, Hx Congestive Heart Failure, Hx Coronary Artery Disease, Hx Deep Vein Thrombosis, Hx Hypercholesterolemia, Hx Hypotension, Hx Hypertension, Hx Pacemaker/ICD, Hx Peripheral Vascular Disease, Hx Rheumatic Fever, Hx Syncope, Hx Valvular Heart Disease, Other Cardiovascular Problems/Disorders Respiratory History: Denies: Hx Asthma, Hx Bronchopulmonary Dysplasia, Hx Chronic Bronchitis, Hx Chronic Obstructive Pulmonary Disease (COPD), Hx Cystic Fibrosis, Hx Lung Cancer , Hx Pleural Effusion, Hx Pneumonia, Hx Pulmonary Edema, Hx Pulmonary Embolism, Hx Seasonal Allergies, Hx Sleep Apnea, Other Respiratory Problems/Disorders GI History: Reports: Hx Ileostomy - colostomy for buttocks wounds, Other GI Disorders - diverting colostomy Denies: Hx Cirrhosis, Hx Crohn's Disease, Hx Diverticulosis, Hx Gall Bladder Disease, Hx Gastroesophageal Reflux Disease, Hx Gastrointestinal Bleed, Hx Hiatal Hernia, Hx Irritable Bowel, Hx Jaundice, Hx Obstructive Bowel, Hx Pyloric Stenosis, Hx Ulcer History: Reports: Hx Kidney Stones, Hx Renal Disease - 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, Other Problems/Disorders - frequent UTIs has indwelling hammer Denies: Hx Acute Renal Failure, Hx Benign Prostatic Hyperplasia, Hx Chronic Renal Failure, Hx Dialysis, Hx Kidney Infection Musculoskeletal History: Reports: Other Musculoskeletal History - contractures of LE's, MS, Chronic Osteomyelitis Denies: Hx Arthritis, Hx Back Problems, Hx Bursitis, Hx Congenital Bone Abnormalities, Hx Fibromyalgia, Hx Gout, Hx Orthopedic Injury, Hx Osteoporosis, Hx Scoliosis, Hx Tendonitis Sensory History: Reports: Hx Contacts or Glasses Denies: Hx Cataracts, Hx Eye Injury, Hx Eye Prosthesis, Hx Glaucoma, Hx Macular Degeneration, Hx Vision Problem, Hx Deafness, Hx Hearing Aid Opthamlomology History: Reports: Hx Contacts or Glasses Denies: Hx Cataracts, Hx Eye Injury, Hx Eye Prosthesis, Hx Glaucoma, Hx Macular Degeneration, Hx Vision Problem Neurological History: Reports: Other Neuro Impairments/Disorders - MS Denies: Hx Dementia, Hx Developmental Delay, Hx Headaches, Hx Migraine, Hx Seizures, Hx Spinal Cord Injury, Hx Transient Ischemic Attacks (TIA) Psychiatric History: Reports: Hx Depression Denies: Hx Anxiety, Hx Attention Deficit Hyperactivity Disorder, Hx Autism, Hx Eating Disorder, Hx Oppositional Arroyo Disorder, Hx Panic Disorder, Hx Post Traumatic Stress Disorder, Hx Inpatient Treatment, Hx Community Mental Health Tx, Hx Schizophrenia, Hx Bipolar Disorder, Hx Suicide Attempt, Hx of Violent Episodes Against Others, Hx Substance Abuse, Other Psychiatric Issues/ Disorders - Surgical History Surgery Procedure, Year, and Place: 2010 at [place]-colostomy placement for non healing buttock wounds, , Appendectomy, Cholecystectomy Hx Anesthesia Reactions: No - Immunization History Date of Tetanus Vaccine: up to date Hx Pertussis Vaccination: No Immunizations Up to Date: Unable to Obtain/Confirm Infectious Disease History: Yes Infectious Disease History: Reports: Hx of Known/Suspected MRSA - MRSA in sacral wound per pt. Denies: Hx Clostridium Difficile, Hx Hepatitis, Hx Human Immunodeficiency Virus (HIV), Hx Shingles, Hx Tuberculosis, Traveled Outside the [place] in Last 30 Days - Family History Known Family History: Positive: None, Cardiac Disease - SD, Diabetes - father Negative: Other - negative for MS Family History: R & n/C - Social History Occupation: Retired Lives: [facility] Alcohol Use: None Hx Substance Use: No Substance Use Type: Reports: None Hx Tobacco Use: No Smoking Status (MU): Never Smoked Tobacco Review of Systems Negative: Fever, Chills, Fatigue, Skin Diaphoresis Cardiovascular: Negative Respiratory: Negative Gastrointestinal: Negative Positive: see HPI, burning, dysuria, frequency, pain, urgency Musculoskeletal: Negative Neurological: Negative All Other Systems Reviewed And Are Negative: Yes Physical Exam Triage Information Reviewed: Yes Vital Signs On Initial Exam: Initial Vitals Temp Pulse Resp BP Pulse Ox 99.3 F 107 18 112/70 95 11/27/17 22:49 11/27/17 22:49 11/27/17 22:49 11/27/17 22:49 11/27/17 22:49 Vital Signs Reviewed: Yes Appearance: Positive: Well-Appearing, Well-Nourished Skin: Positive: Warm, Skin Color Reflects Adequate Perfusion Head/Face: Positive: Normal Head/Face Inspection Eyes: Positive: EOMI, DOUG, Conjunctiva Clear Neck: Positive: Supple, Nontender, No Lymphadenopathy Respiratory/Lung Sounds: Positive: Clear to Auscultation, Breath Sounds Present Cardiovascular: Positive: Normal, Pulses are Symmetrical in both Upper and Lower Extremities Bowel Sounds: Positive: Present Musculoskeletal: Positive: Strength/ROM Intact Neurological: Positive: Normal, Sensory/Motor Intact, Alert, Oriented to Person Place, Time, Speech Normal Psychiatric: Positive: Normal, Affect/Mood Appropriate - Rose Coma Scale Coma Scale Total: 15 Diagnostics - Vital Signs Vital Signs Temp Pulse Resp BP Pulse Ox 11/27/17 22:51 108 94 11/27/17 22:49 99.3 F 107 18 112/70 95 - Laboratory Result Diagrams: 11/28/17 00:27 11/28/17 00:27 Lab Statement: Any lab studies that have been ordered have been reviewed, and results considered in the medical decision making process. GIGU Course/Dx - Course Course Of Treatment: Patient has recurrent UTI's most of which bacteria has grown as Proteus Mirabilus or Pseudomonas. She has been resistant to many antibiotics in the past. She is OK with labs to be obtained, but denies fluids /IV. She is tachy, but afebrile with other VS stable. I believe she is safe to be discharged d/t afebrile state and now prior to discharge HR at 95. She is given augmentin which is susceptible to proteus mirabilas and pesudomonas which have been present the last 2 urine specimins. Will send for culture and call with any change of antibiotics. She is given strict return precautions. First dose dispensed prior to discharge. - Diagnoses Differential Diagnoses - Female: Urinary Tract Infection Provider Diagnoses: UTI (urinary tract infection) Discharge - Discharge Plan Condition: Stable Disposition: HOME Prescriptions: Amoxicillin/Clavulanate TAB* [Augmentin TAB 875*] 875 mg PO BID #14 tab Patient Education Materials: Catheter-associated Urinary Tract Infection (ED) Referrals: Mee Ricketts MD [Primary Care Provider] - Additional Instructions: I have given you a prescription for Augmentin for your UTI If this antibiotic does not cover the bacteria found in your urine, we will call you with a change in medication which is more appropriate. FINISH THE ENTIRE COURSE OF ANTIBIOTICS, EVEN IF YOU BEGIN TO FEEL BETTER! Please take probiotics on the opposite schedule of the antibiotic to prevent secondary infections. If you develop fever, sweats, chills or back pain - return to the ED immediately
[2017-11-28] MEDS ORDERED: NS 0.9% 1000 ML* 1,000 ML IV ONE (00:25)
[2017-11-28 00:42] LABS: ABS Basophils 0.1 10^3/ul (0-0.2); ABS Eosinophils 0.4 10^3/ul (0-0.6); ABS Lymphocytes 2.6 10^3/ul (1.0-4.8); ABS Monocytes 0.8 10^3/ul (0-0.8); ABS Neutrophils 6.2 10^3/ul (1.5-7.7); ABS Nucleated RBC 0.01 10^3/ul; Hematocrit 36 % (35-47); Hemoglobin 11.6 g/dl (12.0-16.0); Lymphocyte % 26.1 % (25-47); Mean Corpuscular HGB Conc 32 g/dl (31-36); Mean Corpuscular Hemoglobin 24 pg (27-31); Mean Platelet Volume 7 um3 (7.4-10.4); Nucleated Red Blood Cells % 0.1; Platelet Count 476 10^3/ul (150-450); Red Blood Count 4.85 10^6/ul (4.0-5.4); Red Cell Distribution Width 18 % (10.5-15); White Blood Count 10.1 10^3/ul (3.5-10.8)
[2017-11-28 00:43] LABS: Mean Corpuscular Volume 75 fL (80-97)
[2017-11-28 00:57] LABS: EGFR Non-African American 149.6 (>60)
[2017-11-28] MEDS ORDERED: Amoxicillin/Clavulanate TAB* 875 MG PO ONE (01:03)
[2017-11-28 01:05] LABS: Urine Appearance Turbid; Urine Blood Negative (Negative); Urine Ketones Negative (Negative); Urine Protein 3+(>=500 mg/dL) (Negative); Urine Urobilinogen Negative (Negative)
[2017-11-28 01:09] LABS: Urine Color Yellow
[2017-11-28 01:38] VITALS: BP 119/71
--- NOTE | 2017-11-30 09:02 | PN ---
Progress Note - Progress Note Date of Service: 11/28/17 Note: >100,000 of proteus mirabilis on preliminary culture results. placed on augmentin at d/c. will wait for final culture sensitivity results
== END 2017-11-28 01:41 | disposition home or self-care (01) ==
LOC: ED 22:34
DX: N39.0 Urinary tract infection, site not specified (principal); R10.84 Generalized abdominal pain
CPT/HCPCS: 36415; 80053; 81003; 81015; 83605; 85025; 87077; 87086; 87184; 87186; 99283; A9270-GY

== ENCOUNTER 2018-01-31 08:45 | Emergency (ER) | payer MEDICARE, MEDICAID ==
[2018-01-31 09:16] LABS: Urine Appearance Turbid; Urine Blood 1+ (Negative); Urine Color Yellow; Urine Ketones Negative (Negative); Urine Protein 3+(>=500 mg/dL) (Negative); Urine Specific Gravity 1.008 (1.010-1.030); Urine Urobilinogen Negative (Negative)
[2018-01-31] MEDS ORDERED: Amoxicillin/Clavulanate TAB* 875 MG PO ONE (10:57)
--- NOTE | 2018-01-31 11:00 | ED ---
GI/ HPI - HPI Summary HPI Summary: 67 female presents to ED with complaints of urinary dysuria, dark /cloudy colored urine and odorous urine. States the symptoms began 2 days ago. Catheter was clogged however replaced by [facility] staff and urine is now flowing freely. straight cath'd for urine for neurogenic bladder. Denies fever/chills, abdominal pain, back pain. States it aguilar when urinating. Does have chronic bay catheter for the past 40years. States she gets UTI's frequently and this feels/appears to be one. States [facility] staff does not listen to her symptoms / took forever to change clogged catheter. No other complaints. No PMHx. no vaginal discharge or complaints. - History of Current Complaint Chief Complaint: EDUrogenitalProblems Time Seen by Provider: 01/31/18 08:53 Stated Complaint: URINARY PROBLEMS Hx Obtained From: Patient Onset/Duration: Started Days Ago, Still Present Timing: Constant, Lasting Days Severity: Mild Current Severity: Moderate Pain Intensity: 8 Pain Characteristics: Burning Associated Signs and Symptoms: Positive: Hematuria, Dysuria, UTI Symptoms Aggravating Factor(s): Urination Alleviating Factor(s): Nothing - Additional Pertinent History Primary Care Physician: SHIRLEY - Allergy/Home Medications Allergies/Adverse Reactions: Allergies Allergy/AdvReac Type Severity Reaction Status Date / Time duloxetine [From Cymbalta] Allergy Unknown Verified 01/31/18 08:50 Reaction Details morphine Allergy Unknown Verified 01/31/18 08:50 Reaction Details oxycodone Allergy Unknown Verified 01/31/18 08:50 Reaction Details PMH/Surg Hx/FS Hx/Imm Hx Endocrine/Hematology History: Reports: Hx Anemia Denies: Hx Anticoagulant Therapy, Hx Blood Disorders, Hx Blood Transfusions, Hx Bone Marrow Disease, Hx Diabetes, Hx Systemic Lupus Erythematosus, Hx Sickle Cell Disease, Hx Thyroid Disease, Hx Unexplained Bleeding, Other Endocrine/ Hematological Disorders Cardiovascular History: Denies: Hx Aneurysm, Hx Angina, Hx Angioplasty, Hx Auto Implanted Cardiovert Defib, Hx Cardiac Arrest, Hx Cardiomegaly, Hx Congenital Heart Disease, Hx Congestive Heart Failure, Hx Coronary Artery Disease, Hx Deep Vein Thrombosis, Hx Hypercholesterolemia, Hx Hypotension, Hx Hypertension, Hx Pacemaker/ICD, Hx Peripheral Vascular Disease, Hx Rheumatic Fever, Hx Syncope, Hx Valvular Heart Disease, Other Cardiovascular Problems/Disorders Respiratory History: Denies: Hx Asthma, Hx Bronchopulmonary Dysplasia, Hx Chronic Bronchitis, Hx Chronic Obstructive Pulmonary Disease (COPD), Hx Cystic Fibrosis, Hx Lung Cancer , Hx Pleural Effusion, Hx Pneumonia, Hx Pulmonary Edema, Hx Pulmonary Embolism, Hx Seasonal Allergies, Hx Sleep Apnea, Other Respiratory Problems/Disorders GI History: Reports: Hx Ileostomy - colostomy for buttocks wounds, Other GI Disorders - diverting colostomy Denies: Hx Cirrhosis, Hx Crohn's Disease, Hx Diverticulosis, Hx Gall Bladder Disease, Hx Gastroesophageal Reflux Disease, Hx Gastrointestinal Bleed, Hx Hiatal Hernia, Hx Irritable Bowel, Hx Jaundice, Hx Obstructive Bowel, Hx Pyloric Stenosis, Hx Ulcer History: Reports: Hx Kidney Stones, Hx Renal Disease - BAY D/T MS AND LACK OF MOBILITY, Other Problems/Disorders - frequent UTIs has indwelling bay Denies: Hx Acute Renal Failure, Hx Benign Prostatic Hyperplasia, Hx Chronic Renal Failure, Hx Dialysis, Hx Kidney Infection Musculoskeletal History: Reports: Other Musculoskeletal History - contractures of LE's, MS, Chronic Osteomyelitis Denies: Hx Arthritis, Hx Back Problems, Hx Bursitis, Hx Congenital Bone Abnormalities, Hx Fibromyalgia, Hx Gout, Hx Orthopedic Injury, Hx Osteoporosis, Hx Scoliosis, Hx Tendonitis Sensory History: Reports: Hx Contacts or Glasses Denies: Hx Cataracts, Hx Eye Injury, Hx Eye Prosthesis, Hx Glaucoma, Hx Macular Degeneration, Hx Vision Problem, Hx Deafness, Hx Hearing Aid Opthamlomology History: Reports: Hx Contacts or Glasses Denies: Hx Cataracts, Hx Eye Injury, Hx Eye Prosthesis, Hx Glaucoma, Hx Macular Degeneration, Hx Vision Problem Neurological History: Reports: Other Neuro Impairments/Disorders - MS Denies: Hx Dementia, Hx Developmental Delay, Hx Headaches, Hx Migraine, Hx Seizures, Hx Spinal Cord Injury, Hx Transient Ischemic Attacks (TIA) Psychiatric History: Reports: Hx Depression Denies: Hx Anxiety, Hx Attention Deficit Hyperactivity Disorder, Hx Autism, Hx Eating Disorder, Hx Oppositional [place] Disorder, Hx Panic Disorder, Hx Post Traumatic Stress Disorder, Hx Inpatient Treatment, Hx Community Mental Health Tx, Hx Schizophrenia, Hx Bipolar Disorder, Hx Suicide Attempt, Hx of Violent Episodes Against Others, Hx Substance Abuse, Other Psychiatric Issues/ Disorders - Surgical History Surgery Procedure, Year, and Place: 2009 at [facility]-colostomy placement for non healing buttock wounds, , Appendectomy, Cholecystectomy Hx Anesthesia Reactions: No - Immunization History Date of Tetanus Vaccine: up to date Immunizations Up to Date: Yes Infectious Disease History: Yes Infectious Disease History: Reports: Hx of Known/Suspected MRSA - MRSA in sacral wound per pt. Denies: Hx Clostridium Difficile, Hx Hepatitis, Hx Human Immunodeficiency Virus (HIV), Hx Shingles, Hx Tuberculosis, Traveled Outside the [place] in Last 30 Days - Family History Known Family History: Positive: None, Cardiac Disease - [place], Diabetes - father Negative: Other - negative for MS Family History: R & n/C - Social History Alcohol Use: None Hx Substance Use: No Substance Use Type: Reports: None Hx Tobacco Use: No Smoking Status (MU): Never Smoked Tobacco Review of Systems Constitutional: Negative Cardiovascular: Negative Respiratory: Negative Positive: see HPI, burning, hematuria Skin: Negative All Other Systems Reviewed And Are Negative: Yes Physical Exam Triage Information Reviewed: Yes Vital Signs On Initial Exam: Initial Vitals Temp Pulse Resp BP Pulse Ox 98.7 F 100 14 126/66 94 01/31/18 08:46 01/31/18 08:46 01/31/18 08:46 01/31/18 08:46 01/31/18 08:46 Vital Signs Reviewed: Yes Appearance: Positive: Well-Appearing, No Pain Distress, Well-Nourished Skin: Positive: Warm, Skin Color Reflects Adequate Perfusion, Dry. Negative: Cold, Numb, Erythema @ Head/Face: Positive: Normal Head/Face Inspection Neck: Positive: Supple Respiratory/Lung Sounds: Positive: Clear to Auscultation, Breath Sounds Present. Negative: Rales, Rhonchi, Wheezes Cardiovascular: Positive: Normal, RRR, Pulses are Symmetrical in both Upper and Lower Extremities. Negative: Murmur, Rub Abdomen Description: Positive: Nontender, Soft, Other: - catheter placement appears patent and normal without issues, passing urine freely. Bowel Sounds: Positive: Present Pelvic Exam: Positive: external exam normal Musculoskeletal: Positive: Normal, Strength/ROM Intact Neurological: Positive: Normal, Sensory/Motor Intact, Alert, Oriented to Person Place, Time - [place] Coma Scale Best Eye Response: 4 - Spontaneous Best Motor Response: 6 - Obeys Commands Best Verbal Response: 5 - Oriented Coma Scale Total: 15 Diagnostics - Vital Signs Vital Signs Temp Pulse Resp BP Pulse Ox 01/31/18 10:30 120/64 03/03/18 10:00 115/68 01/31/18 09:30 97 106/56 94 01/31/18 09:00 99 106/76 93 01/31/18 08:53 99 94 01/31/18 08:52 123/68 01/31/18 08:46 98.7 F 100 14 126/66 94 - Laboratory Lab Results: Lab Results 01/31/18 Range/Units 09:05 Urine Color Yellow Urine Appearance Turbid Urine pH 8.0 (5-9) Ur Specific [place] 1.008 L (1.010-1.030) Urine Protein 3+(>=500 mg/dl) A (Negative) Urine Ketones Negative (Negative) Urine Blood 1+ A (Negative) Urine Nitrate Negative (Negative) Urine Bilirubin Negative (Negative) Urine Urobilinogen Negative (Negative) Ur Leukocyte Esterase 2+ A (Negative) Urine WBC (Auto) Absent (Absent) Urine RBC (Auto) Absent (Absent) Urine Bacteria Absent (Absent) Urine Glucose Negative (Negative) Lab Statement: Any lab studies that have been ordered have been reviewed, and results considered in the medical decision making process. GIGU Course/Dx - Course Course Of Treatment: Patient has recurrent UTI's most of which bacteria has grown as Proteus Mirabilus or Pseudomonas seen previously. No issues with catheter. She has been resistant to many antibiotics in the past. afebrile VS stable. She is given augmentin which is susceptible to proteus mirabilas and pesudomonas which have been present the last 2 urine specimins. Will send for culture and call with any change of antibiotics, especially due to urine not appearing to be infected upon urinalysis with only 1+blood and 2+leuk. patient educatedsome bacteria is normal to be present with chronic catheter however due to symptoms and patient history wanted to begin treatment prior to obtaining culture. She is given strict return precautions. First dose dispensed prior to discharge. Aware of worsening signs and symptoms. No other concerns at this time. follow up. - Diagnoses Differential Diagnoses - Female: Cystitis, Urinary Tract Infection, Other - urinary catheter issues Provider Diagnoses: UTI (urinary tract infection), Bay catheter in place Discharge - Discharge Plan Condition: Good Disposition: HOME Patient Education Materials: Urinary Tract Infection in Women (ED), Catheter- associated Urinary Tract Infection (ED) Referrals: Mee Ricketts MD [Primary Care Provider] - Additional Instructions: Take prescribed antibiotic to help with symptoms/possible infection. If this antibiotic does not cover the bacteria found in your urine, we will call you with a change in medication which is more appropriate. FINISH THE ENTIRE COURSE OF ANTIBIOTICS, EVEN IF YOU BEGIN TO FEEL BETTER! Please take probiotics on the opposite schedule of the antibiotic to prevent secondary infections. If you develop fever, sweats, chills or back pain - return to the ED immediately Increase fluid intake, water & cranberry juice if able. Follow up with PCP for recheck and trepeat urine. Keep catheter clean and patent.
[2018-01-31 11:23] VITALS: BP 130/71
--- NOTE | 2018-02-02 09:15 | PN ---
Progress Note - Progress Note Date of Service: 01/31/18 Note: Called Nursing facility who states she is currently on antibiotics. Currently on Cefdinir Will change if needed when sensitivities return. Rita Ornelas PA-C
== END 2018-01-31 11:22 | disposition home or self-care (01) ==
LOC: ED 08:45
DX: N39.0 Urinary tract infection, site not specified (principal); Z96.0 Presence of urogenital implants; Z88.5 Allergy status to narcotic agent; Z88.8 Allergy status to other drugs, medicaments and biological substances
CPT/HCPCS: 81003; 81015; 87077; 87086; 87186; 99283; A9270-GY

== ENCOUNTER 2018-03-16 12:11 | Emergency (ER) | payer MEDICARE, MEDICAID ==
[2018-03-16 14:05] LABS: Urine Appearance Cloudy; Urine Blood Negative (Negative); Urine Color Yellow; Urine Ketones Negative (Negative); Urine Protein Negative (Negative); Urine Specific Gravity 1.011 (1.010-1.030); Urine Urobilinogen Negative (Negative)
[2018-03-16] MEDS ORDERED: Amoxicillin/Clavulanate TAB* 875 MG PO ONE (14:38)
--- NOTE | 2018-03-16 14:44 | ED ---
Andres Wells Thomas, scribed for Que Christensen MD on 03/16/18 at 1235 . GI/ HPI - HPI Summary HPI Summary: The patient is a 67 year old female with a chronic indwelling Bay catheter due to MS. She complains of a burning sensation. The patient also complains of fevers and chills that began three days ago, for which she has been taking acetaminophen. The patient denies abdominal pain, cough, chest congestion, and nasal discharge. - History of Current Complaint Chief Complaint: EDUrogenitalProblems Time Seen by Provider: 03/16/18 12:19 Stated Complaint: POSS UTI Hx Obtained From: Patient Onset/Duration: Started Days Ago - 3, Still Present Timing: Constant Severity: Moderate Current Severity: Moderate Pain Intensity: 0 Associated Signs and Symptoms: Positive: Other: - Burning sensation, fevers, chills; NEGATIVE: abd pain, cough, chest congestion, nasal discharge Aggravating Factor(s): Nothing Alleviating Factor(s): OTC Analgesics - acetamionphen - Additional Pertinent History Primary Care Physician: SHIRLEY - Allergy/Home Medications Allergies/Adverse Reactions: Allergies Allergy/AdvReac Type Severity Reaction Status Date / Time duloxetine [From Cymbalta] Allergy Unknown Verified 01/31/18 08:50 Reaction Details morphine Allergy Unknown Verified 01/31/18 08:50 Reaction Details oxycodone Allergy Unknown Verified 01/31/18 08:50 Reaction Details PMH/Surg Hx/FS Hx/Imm Hx Endocrine/Hematology History: Reports: Hx Anemia Denies: Hx Anticoagulant Therapy, Hx Blood Disorders, Hx Blood Transfusions, Hx Bone Marrow Disease, Hx Diabetes, Hx Systemic Lupus Erythematosus, Hx Sickle Cell Disease, Hx Thyroid Disease, Hx Unexplained Bleeding, Other Endocrine/ Hematological Disorders Cardiovascular History: Denies: Hx Aneurysm, Hx Angina, Hx Angioplasty, Hx Auto Implanted Cardiovert Defib, Hx Cardiac Arrest, Hx Cardiomegaly, Hx Congenital Heart Disease, Hx Congestive Heart Failure, Hx Coronary Artery Disease, Hx Deep Vein Thrombosis, Hx Hypercholesterolemia, Hx Hypotension, Hx Hypertension, Hx Pacemaker/ICD, Hx Peripheral Vascular Disease, Hx Rheumatic Fever, Hx Syncope, Hx Valvular Heart Disease, Other Cardiovascular Problems/Disorders Respiratory History: Denies: Hx Asthma, Hx Bronchopulmonary Dysplasia, Hx Chronic Bronchitis, Hx Chronic Obstructive Pulmonary Disease (COPD), Hx Cystic Fibrosis, Hx Lung Cancer , Hx Pleural Effusion, Hx Pneumonia, Hx Pulmonary Edema, Hx Pulmonary Embolism, Hx Seasonal Allergies, Hx Sleep Apnea, Other Respiratory Problems/Disorders GI History: Reports: Hx Ileostomy - colostomy for buttocks wounds, Other GI Disorders - diverting colostomy Denies: Hx Cirrhosis, Hx Crohn's Disease, Hx Diverticulosis, Hx Gall Bladder Disease, Hx Gastroesophageal Reflux Disease, Hx Gastrointestinal Bleed, Hx Hiatal Hernia, Hx Irritable Bowel, Hx Jaundice, Hx Obstructive Bowel, Hx Pyloric Stenosis, Hx Ulcer History: Reports: Hx Kidney Stones, Hx Renal Disease - BAY D/T MS AND LACK OF MOBILITY, Other Problems/Disorders - frequent UTIs has indwelling bay Denies: Hx Acute Renal Failure, Hx Benign Prostatic Hyperplasia, Hx Chronic Renal Failure, Hx Dialysis, Hx Kidney Infection Musculoskeletal History: Reports: Other Musculoskeletal History - contractures of LE's, MS, Chronic Osteomyelitis Denies: Hx Arthritis, Hx Back Problems, Hx Bursitis, Hx Congenital Bone Abnormalities, Hx Fibromyalgia, Hx Gout, Hx Orthopedic Injury, Hx Osteoporosis, Hx Scoliosis, Hx Tendonitis Sensory History: Reports: Hx Contacts or Glasses Denies: Hx Cataracts, Hx Eye Injury, Hx Eye Prosthesis, Hx Glaucoma, Hx Macular Degeneration, Hx Vision Problem, Hx Deafness, Hx Hearing Aid Opthamlomology History: Reports: Hx Contacts or Glasses Denies: Hx Cataracts, Hx Eye Injury, Hx Eye Prosthesis, Hx Glaucoma, Hx Macular Degeneration, Hx Vision Problem Neurological History: Reports: Other Neuro Impairments/Disorders - MS Denies: Hx Dementia, Hx Developmental Delay, Hx Headaches, Hx Migraine, Hx Seizures, Hx Spinal Cord Injury, Hx Transient Ischemic Attacks (TIA) Psychiatric History: Reports: Hx Depression Denies: Hx Anxiety, Hx Attention Deficit Hyperactivity Disorder, Hx Autism, Hx Eating Disorder, Hx Oppositional [place] Disorder, Hx Panic Disorder, Hx Post Traumatic Stress Disorder, Hx Inpatient Treatment, Hx Community Mental Health Tx, Hx Schizophrenia, Hx Bipolar Disorder, Hx Suicide Attempt, Hx of Violent Episodes Against Others, Hx Substance Abuse, Other Psychiatric Issues/ Disorders - Surgical History Surgery Procedure, Year, and Place: 2009 at [facility]-colostomy placement for non healing buttock wounds, , Appendectomy, Cholecystectomy Hx Anesthesia Reactions: No - Immunization History Date of Tetanus Vaccine: up to date Infectious Disease History: No Infectious Disease History: Reports: Hx of Known/Suspected MRSA - MRSA in sacral wound per pt. Denies: Hx Clostridium Difficile, Hx Hepatitis, Hx Human Immunodeficiency Virus (HIV), Hx Shingles, Hx Tuberculosis, Traveled Outside the [place] in Last 30 Days - Family History Known Family History: Positive: Cardiac Disease - [place], Diabetes - father Negative: Other - negative for MS - Social History Alcohol Use: None Hx Substance Use: No Substance Use Type: Reports: None Hx Tobacco Use: No Smoking Status (MU): Never Smoked Tobacco Review of Systems Positive: Fever, Chills Negative: Nasal Discharge Negative: Cough, Other - chest congestion Negative: Abdominal Pain Positive: dysuria All Other Systems Reviewed And Are Negative: Yes Physical Exam - Summary Physical Exam Summary: General: Well-appearing, no pain distress. She is in a wheelchair. Skin: warm, color reflects adequate perfusion, dry Head: normal Eyes: EOMI, DOUG ENT: normal Neck: supple, nontender Respiratory: CTA, breath sounds present Cardiovascular: RRR Abdomen: soft, nontender Bowel: present Musculoskeletal: normal, strength/ROM intact Neurological: baseline, sensory/motor intact, A&O x3 Psychological: affect/mood appropriate Triage Information Reviewed: Yes Vital Signs On Initial Exam: Initial Vitals Temp Pulse Resp BP Pulse Ox 98.8 F 98 16 113/74 96 03/16/18 12:15 03/16/18 12:15 03/16/18 12:15 03/16/18 12:15 03/16/18 12:15 Vital Signs Reviewed: Yes Diagnostics - Vital Signs Vital Signs Temp Pulse Resp BP Pulse Ox 03/16/18 12:15 98.8 F 98 16 113/74 96 - Laboratory Lab Results: Lab Results 03/16/18 Range/Units 13:05 Urine Color Yellow Urine Appearance Cloudy Urine pH 8.0 (5-9) Ur Specific [place] 1.011 (1.010-1.030) Urine Protein Negative (Negative) Urine Ketones Negative (Negative) Urine Blood Negative (Negative) Urine Nitrate Positive A (Negative) Urine Bilirubin Negative (Negative) Urine Urobilinogen Negative (Negative) Ur Leukocyte Esterase 3+ A (Negative) Urine WBC (Auto) 3+(>20/hpf) A (Absent) Urine RBC (Auto) 2+(6-10/hpf) A (Absent) Ur Squamous Epith Cells Present A (Absent) Triple Phos Crystals Present A (Absent) Urine Bacteria Absent (Absent) Urine Glucose Negative (Negative) Lab Statement: Any lab studies that have been ordered have been reviewed, and results considered in the medical decision making process. GIGU Course/Dx - Course Course Of Treatment: Medications reviewed. Allergies noted. PATIENT STARTED ON AUGMENTIN. DIFFICULT BLOOD DRAW; PATIENT DECLINES FURTHER BLOOD DRAW ATTEMPTS. F/U PMD; RETURN IF WORSE. - Diagnoses Provider Diagnoses: UTI (urinary tract infection) Discharge - Sign-Out/Discharge Documenting (check all that apply): Discharge - Discharge Plan Condition: Stable Disposition: HOME Prescriptions: Amoxicillin/Clavulanate TAB* [Augmentin TAB 875*] 875 mg PO BID #14 tab Patient Education Materials: Catheter-associated Urinary Tract Infection (ED) Referrals: [facility] [Outside] Additional Instructions: FOLLOW UP WITH YOUR DOCTOR. RETURN TO THE EMERGENCY DEPARTMENT FOR ANY WORSENING OF YOUR CONDITION; FEVER, YOU FEEL ILL OR QUESTIONS OR CONCERNS. - Billing Disposition and Condition Condition: STABLE Disposition: HOME The documentation as recorded by the Andres castellanos Thomas accurately reflects the service I personally performed and the decisions made by me, Que Christensen MD.
[2018-03-16 15:53] VITALS: BP 112/72
== END 2018-03-16 15:52 | disposition home or self-care (01) ==
LOC: ED 12:11
DX: N39.0 Urinary tract infection, site not specified (principal); R30.0 Dysuria; Z46.6 Encounter for fitting and adjustment of urinary device
CPT/HCPCS: 81003; 81015; 87086; 99283; A9270-GY

== ENCOUNTER 2018-05-04 12:01 | Emergency (ER) | payer MEDICARE, MEDICAID ==
[2018-05-04] MEDS ORDERED: Amoxicillin/Clavulanate TAB* 875 MG PO ONE (14:42)
[2018-05-04 14:43] LABS: Urine Appearance Turbid; Urine Blood 1+ (Negative); Urine Color Amber; Urine Ketones Negative (Negative); Urine Protein 3+(>=500 mg/dL) (Negative); Urine Specific Gravity 1.015 (1.010-1.030); Urine Urobilinogen Negative (Negative)
--- NOTE | 2018-05-04 15:07 | ED ---
GI/ HPI - HPI Summary HPI Summary: Patient is a 67-year-old female with a history of persistent catheter associated UTIs presenting to the ED with chief complaint of UTI symptoms. - History of Current Complaint Chief Complaint: EDUrogenitalProblems Time Seen by Provider: 05/04/18 13:47 Stated Complaint: UTI LIKE SYMPTOMS Pain Intensity: 6 - Additional Pertinent History Primary Care Physician: SHIRLEY - Allergy/Home Medications Allergies/Adverse Reactions: Allergies Allergy/AdvReac Type Severity Reaction Status Date / Time duloxetine [From Cymbalta] Allergy Unknown Verified 05/04/18 12:11 Reaction Details morphine Allergy Unknown Verified 05/04/18 12:11 Reaction Details oxycodone Allergy Unknown Verified 05/04/18 12:11 Reaction Details PMH/Surg Hx/FS Hx/Imm Hx Endocrine/Hematology History: Reports: Hx Anemia Denies: Hx Anticoagulant Therapy, Hx Blood Disorders, Hx Blood Transfusions, Hx Bone Marrow Disease, Hx Diabetes, Hx Systemic Lupus Erythematosus, Hx Sickle Cell Disease, Hx Thyroid Disease, Hx Unexplained Bleeding, Other Endocrine/ Hematological Disorders Cardiovascular History: Denies: Hx Aneurysm, Hx Angina, Hx Angioplasty, Hx Auto Implanted Cardiovert Defib, Hx Cardiac Arrest, Hx Cardiomegaly, Hx Congenital Heart Disease, Hx Congestive Heart Failure, Hx Coronary Artery Disease, Hx Deep Vein Thrombosis, Hx Hypercholesterolemia, Hx Hypotension, Hx Hypertension, Hx Pacemaker/ICD, Hx Peripheral Vascular Disease, Hx Rheumatic Fever, Hx Syncope, Hx Valvular Heart Disease, Other Cardiovascular Problems/Disorders Respiratory History: Denies: Hx Asthma, Hx Bronchopulmonary Dysplasia, Hx Chronic Bronchitis, Hx Chronic Obstructive Pulmonary Disease (COPD), Hx Cystic Fibrosis, Hx Lung Cancer , Hx Pleural Effusion, Hx Pneumonia, Hx Pulmonary Edema, Hx Pulmonary Embolism, Hx Seasonal Allergies, Hx Sleep Apnea, Other Respiratory Problems/Disorders GI History: Reports: Hx Ileostomy - colostomy for buttocks wounds, Other GI Disorders - diverting colostomy Denies: Hx Cirrhosis, Hx Crohn's Disease, Hx Diverticulosis, Hx Gall Bladder Disease, Hx Gastroesophageal Reflux Disease, Hx Gastrointestinal Bleed, Hx Hiatal Hernia, Hx Irritable Bowel, Hx Jaundice, Hx Obstructive Bowel, Hx Pyloric Stenosis, Hx Ulcer History: Reports: Hx Kidney Stones, Hx Renal Disease - 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, Other Problems/Disorders - frequent UTIs has indwelling hammer Denies: Hx Acute Renal Failure, Hx Benign Prostatic Hyperplasia, Hx Chronic Renal Failure, Hx Dialysis, Hx Kidney Infection Musculoskeletal History: Reports: Other Musculoskeletal History - contractures of LE's, MS, Chronic Osteomyelitis Denies: Hx Arthritis, Hx Back Problems, Hx Bursitis, Hx Congenital Bone Abnormalities, Hx Fibromyalgia, Hx Gout, Hx Orthopedic Injury, Hx Osteoporosis, Hx Scoliosis, Hx Tendonitis Sensory History: Reports: Hx Contacts or Glasses Denies: Hx Cataracts, Hx Eye Injury, Hx Eye Prosthesis, Hx Glaucoma, Hx Macular Degeneration, Hx Vision Problem, Hx Deafness, Hx Hearing Aid Opthamlomology History: Reports: Hx Contacts or Glasses Denies: Hx Cataracts, Hx Eye Injury, Hx Eye Prosthesis, Hx Glaucoma, Hx Macular Degeneration, Hx Vision Problem Neurological History: Reports: Other Neuro Impairments/Disorders - MS Denies: Hx Dementia, Hx Developmental Delay, Hx Headaches, Hx Migraine, Hx Seizures, Hx Spinal Cord Injury, Hx Transient Ischemic Attacks (TIA) Psychiatric History: Reports: Hx Depression Denies: Hx Anxiety, Hx Attention Deficit Hyperactivity Disorder, Hx Autism, Hx Eating Disorder, Hx Oppositional [place] Disorder, Hx Panic Disorder, Hx Post Traumatic Stress Disorder, Hx Inpatient Treatment, Hx Community Mental Health Tx, Hx Schizophrenia, Hx Bipolar Disorder, Hx Suicide Attempt, Hx of Violent Episodes Against Others, Hx Substance Abuse, Other Psychiatric Issues/ Disorders - Surgical History Surgery Procedure, Year, and Place: 2010 at [place]-colostomy placement for non healing buttock wounds, , Appendectomy, Cholecystectomy Hx Anesthesia Reactions: No - Immunization History Date of Tetanus Vaccine: up to date Infectious Disease History: No Infectious Disease History: Reports: Hx of Known/Suspected MRSA - MRSA in sacral wound per pt. Denies: Hx Clostridium Difficile, Hx Hepatitis, Hx Human Immunodeficiency Virus (HIV), Hx Shingles, Hx Tuberculosis, Traveled Outside the [place] in Last 30 Days - Family History Known Family History: Positive: None, Cardiac Disease - [place], Diabetes - father Negative: Other - negative for MS Family History: R & n/C - Social History Alcohol Use: None Hx Substance Use: No Substance Use Type: Reports: None Hx Tobacco Use: No Smoking Status (MU): Never Smoked Tobacco Physical Exam Vital Signs On Initial Exam: Initial Vitals Temp Pulse Resp BP Pulse Ox 96.8 F 99 18 114/79 96 05/04/18 12:06 05/04/18 12:06 05/04/18 12:06 05/04/18 12:06 05/04/18 12:06 Diagnostics - Vital Signs Vital Signs Temp Pulse Resp BP Pulse Ox 05/04/18 12:06 96.8 F 99 18 114/79 96 - Laboratory Lab Results: Lab Results 05/04/18 Range/Units 14:16 Urine Color Jana Urine Appearance Turbid Urine pH 9.0 (5-9) Ur Specific [place] 1.015 (1.010-1.030) Urine Protein 3+(>=500 mg/dl) A (Negative) Urine Ketones Negative (Negative) Urine Blood 1+ A (Negative) Urine Nitrate Negative (Negative) Urine Bilirubin 1+ A (Negative) Urine Urobilinogen Negative (Negative) Ur Leukocyte Esterase 1+ A (Negative) Urine WBC (Auto) 3+(>20/hpf) A (Absent) Urine RBC (Auto) 3+(>10/hpf) A (Absent) Ur Squamous Epith Cells Present A (Absent) Triple Phos Crystals Present A (Absent) Urine Bacteria Absent (Absent) Urine Glucose Negative (Negative) Lab Statement: Any lab studies that have been ordered have been reviewed, and results considered in the medical decision making process. Discharge - Discharge Plan Condition: Stable Disposition: HOME Prescriptions: Amoxicillin/Clavulanate TAB* [Augmentin TAB 875*] 875 mg PO BID #14 tab Patient Education Materials: Catheter-associated Urinary Tract Infection (ED) Referrals: No Primary Care Phys,NOPCP [Primary Care Provider] - Brian Brasher MD [Medical Doctor] - Additional Instructions: Please follow up with Dr. Brasher I have given you the name and phone number Please call and make an appt tomorrow Augmentin twice daily x 7 days First dose given in the ED Next dose should be taken tonight or tomorrow morning If you develop fevers, sweats, chills, return to the ED immediately - Billing Disposition and Condition Condition: STABLE Disposition: Home
[2018-05-04 15:40] VITALS: BP 140/74
--- NOTE | 2018-05-06 07:08 | ED ---
Progress - Progress Note Progress Note: Patient's preliminary urine culture reveals greater than 100,000 Proteus mirabilis. Patient was started on Augmentin. Pending final results. Discharge - Sign-Out/Discharge Documenting (check all that apply): Post-Discharge Follow Up - Discharge Plan Condition: Stable Disposition: HOME Prescriptions: Amoxicillin/Clavulanate TAB* [Augmentin TAB 875*] 875 mg PO BID #14 tab Patient Education Materials: Catheter-associated Urinary Tract Infection (ED) Referrals: No Primary Care Phys,NOPCP [Primary Care Provider] - Brian Brasher MD [Medical Doctor] - Additional Instructions: Please follow up with Dr. Brasher I have given you the name and phone number Please call and make an appt tomorrow Augmentin twice daily x 7 days First dose given in the ED Next dose should be taken tonight or tomorrow morning If you develop fevers, sweats, chills, return to the ED immediately - Billing Disposition and Condition Condition: STABLE Disposition: Home
--- NOTE | 2018-05-07 08:01 | ED ---
Progress - Progress Note Progress Note: Patient's preliminary urine culture reveals greater than 100,000 Proteus mirabilis. Patient was started on Augmentin. Pending final results. UPDATE: Final urine culture statement reveals mixed phyllis; possible contamination. Suggest recent admission. Connie clarke/ staff at [facility] who will have a nurse call me back. Discharge - Sign-Out/Discharge Documenting (check all that apply): Post-Discharge Follow Up - Discharge Plan Condition: Stable Disposition: HOME Prescriptions: Amoxicillin/Clavulanate TAB* [Augmentin TAB 875*] 875 mg PO BID #14 tab Patient Education Materials: Catheter-associated Urinary Tract Infection (ED) Referrals: No Primary Care Phys,NOPCP [Primary Care Provider] - Brian Brasher MD [Medical Doctor] - Additional Instructions: Please follow up with Dr. Brasher I have given you the name and phone number Please call and make an appt tomorrow Augmentin twice daily x 7 days First dose given in the ED Next dose should be taken tonight or tomorrow morning If you develop fevers, sweats, chills, return to the ED immediately - Billing Disposition and Condition Condition: STABLE Disposition: Home
== END 2018-05-04 15:40 | disposition home or self-care (01) ==
LOC: ED 12:01
DX: T83.511A Infection and inflammatory reaction due to indwelling urethral catheter, initial encounter (principal); N39.0 Urinary tract infection, site not specified; B96.4 Proteus (mirabilis) (morganii) as the cause of diseases classified elsewhere; Z88.5 Allergy status to narcotic agent
CPT/HCPCS: 81003; 81015; 87086; 99282; A9270-GY

== ENCOUNTER 2018-05-18 13:07 | Emergency (ER) | payer MEDICARE, MEDICAID ==
[2018-05-18 15:04] LABS: ABS Basophils 0.1 10^3/ul (0-0.2); ABS Eosinophils 0.4 10^3/ul (0-0.6); ABS Monocytes 0.7 10^3/ul (0-0.8); ABS Neutrophils 7.7 10^3/ul (1.5-7.7); ABS Nucleated RBC 0 10^3/ul; Eosinophil % 3.1 % (0-6); Hematocrit 47 % (35-47); Lymphocyte % 25.3 % (25-47); Mean Corpuscular HGB Conc 32 g/dl (31-36); Mean Corpuscular Hemoglobin 26 pg (27-31); Mean Corpuscular Volume 80 fL (80-97); Mean Platelet Volume 7.4 um3 (7.4-10.4); Nucleated Red Blood Cells % 0; Platelet Count 426 10^3/ul (150-450); Red Blood Count 5.85 10^6/ul (4.00-5.40); Red Cell Distribution Width 17 % (10.5-15); White Blood Count 11.8 10^3/ul (3.5-10.8)
[2018-05-18 15:14] LABS: INR 0.95 (0.77-1.02)
[2018-05-18 15:21] LABS: EGFR Non-African American 111.9 (>60)
--- NOTE | 2018-05-18 15:47 | RAD ---
HISTORY: dizzy COMPARISONS: None TECHNIQUE: Multiple contiguous axial CT scans were obtained of the head without intravenous contrast. FINDINGS: HEMORRHAGE/INFARCT: There is no hemorrhage or acute infarct. MASSES/SHIFT: There is no mass or shift. EXTRA-AXIAL SPACES: There are no extra-axial fluid collections. SULCI AND VENTRICLES: The sulci and ventricles are normal in size and position for the patient's stated age. CEREBRUM: There is mild patchy hypoattenuation of the periventricular and subcortical white matter. BRAINSTEM: There are no focal parenchymal abnormalities. CEREBELLUM: There are no focal parenchymal abnormalities. VESSELS: The vessels are grossly normal. PARANASAL SINUSES: The paranasal sinuses are clear. ORBITS: The orbits are unremarkable. BONES AND SOFT TISSUE: No bone or soft tissue abnormalities are noted. OTHER: None IMPRESSION: NO ACUTE INTRACRANIAL PATHOLOGY.
--- NOTE | 2018-05-18 15:54 | RAD ---
INDICATION: Dizziness COMPARISON: October 13, 2017 TECHNIQUE: An AP portable view obtained at 1540 hours is submitted. FINDINGS: Bones/Soft Tissues: There are no acute bony findings. Cardiomediastinal: The cardiomediastinal silhouette is normal. Lungs: There are no infiltrates. Examination is expiratory with vascular crowding. Pleura: There are no pleural effusions. Other: None IMPRESSION: NO ACUTE DIAGNOSTIC FINDINGS.
[2018-05-18] MEDS ORDERED: Meclizine TAB* 12.5 MG PO ONE (16:36)
[2018-05-18] MEDS ORDERED: Meclizine TAB* 12.5 MG ONE (16:38)
[2018-05-18 18:44] VITALS: BP 142/74
--- NOTE | 2018-05-18 22:35 | ED ---
Alisha Wells Jade, scribed for Cristine Buitrago MD on 05/18/18 at 1331 . Dizziness - HPI Summary HPI Summary: Pt is a 67 y/o female who presents to the ED c/o dizziness. She states the dizziness started 3 weeks ago, and she gets a sensation that the room is spinning every time she turns to the left or right. Pt states this is the worst [sensation] of her life. She denies any CP, SOB, or N/V. Pt occasionally will have a strong headache, but does not have one currently. She was at the wound clinic earlier today for a wound on her buttocks. Pt lives at [facility], and they are aware the pt is at the ED. No symptoms are particularly worse today but since she was at the wound clinic, decided she wanted to have the dizziness evaluated. She states the dizziness makes her wound care difficult because they have to turn her to care for the wound on her buttocks and that makes dizziness worse. PMHx MS and has a chronic bay catheter. Pt finished Augmentin for a UTI 1 week ago, which makes her nauseated and lose her appetite. She does not smoke. Home Medications Medication Instructions Recorded Confirmed Type Acetaminophen [Acetaminophen Extra 1,000 mg PO Q8H PRN 05/18/18 05/18/18 History Strength] Acetic Acid 0.25%* [ Acetic Acid 30 ml .SEE ORDER DAILY 05/18/18 05/18/18 History 0.25*] Biotin 1 mg PO DAILY 05/18/18 05/18/18 History Bisacodyl SUPP* [Dulcolax Supp*] 10 mg PA DAILY PRN 05/18/18 05/18/18 History Cholecalciferol TAB* [Vitamin D 2,000 units PO DAILY 05/18/18 05/18/18 History TAB*] Docusate CAP* [Colace Cap*] 200 mg PO BEDTIME 05/18/18 05/18/18 History LORazepam TAB(*) [Ativan 1 MG TAB 1 mg PO BEDTIME 05/18/18 05/18/18 History (*)] Lactobacillus Acidophilus* 1 cap PO DAILY 05/18/18 05/18/18 History [Culturelle*] Lidocaine 2% JELLY* 1 applic TOPICAL DAILY 05/18/18 05/18/18 History Magnesium Hydroxide LIQ* [Milk of 30 ml PO DAILY PRN 05/18/18 05/18/18 History Magnesia LIQ*] Mirtazapine TAB* [Remeron TAB*] 7.5 mg PO BEDTIME 05/18/18 05/18/18 History Multivitamins/Minerals TAB* 1 tab PO DAILY 05/18/18 05/18/18 History [Theragran/minerals TAB*] Ondansetron ODT TAB* [Zofran 4 MG 4 mg PO Q6H PRN 05/18/18 05/18/18 History Odt TAB*] Oxybutynin XL TAB* [Ditropan XL 15 mg PO DAILY 05/18/18 05/18/18 History TAB*] Polyethylene Glycol 3350* 17 gm PO DAILY PRN 05/18/18 05/18/18 History [Miralax*] Senna TAB* [Senokot TAB*] 1 tab PO DAILY 05/18/18 05/18/18 History Venlafaxine ER (NF) [Effexor ER 150 mg PO DAILY 05/18/18 05/18/18 History (NF)] Venlafaxine EXT RELEASE CAP* 75 mg PO DAILY 05/18/18 05/18/18 History [Effexor Xr CAP*] traMADol TAB* [Ultram*] 50 mg PO Q6HR PRN 05/18/18 05/18/18 History - History Of Current Complaint Chief Complaint: EDDizziness Stated Complaint: DIZZINESS Time Seen by Provider: 05/18/18 13:27 Hx Obtained From: Patient, Medical Records - Wound clinic Onset/Duration: Still Present Timing: Constant - 3 weeks Severity Initially: Moderate Severity Currently: Severe Character: Room Spinning Aggravating Factor(s): Change In Head Position - To left or right Alleviating Factor(s): Nothing Associated Signs And Symptoms: Positive: Inability to Walk - chronically wheelchair bound due to multiple sclerosis, Other: - Occasional headache. Negative: Nausea, SOB - Allergies/Home Medications Allergies/Adverse Reactions: Allergies Allergy/AdvReac Type Severity Reaction Status Date / Time duloxetine [From Cymbalta] Allergy Unknown Verified 05/18/18 13:44 Reaction Details morphine Allergy Unknown Verified 05/18/18 13:44 Reaction Details oxycodone Allergy Unknown Verified 05/18/18 13:44 Reaction Details Home Medications: Home Medications Acetaminophen [Acetaminophen Extra Strength] 1,000 mg PO Q8H PRN 05/18/18 [ History Confirmed 05/18/18] Acetic Acid 0.25%* 30 ml .SEE ORDER DAILY 05/18/18 [History Confirmed 05/18/18] Biotin 1 mg PO DAILY 05/18/18 [History Confirmed 05/18/18] Bisacodyl SUPP* [Dulcolax Supp*] 10 mg PA DAILY PRN 05/18/18 [History Confirmed 05/18/18] Cholecalciferol TAB* [Vitamin D TAB*] 2,000 units PO DAILY 05/18/18 [History Confirmed 05/18/18] Docusate CAP* [Colace Cap*] 200 mg PO BEDTIME 05/18/18 [History Confirmed ] LORazepam TAB(*) [Ativan 1 MG TAB (*)] 1 mg PO BEDTIME 05/18/18 [History Confirmed 05/18/18] Lactobacillus Acidophilus* 1 cap PO DAILY 05/18/18 [History Confirmed 05/18/18] Lidocaine 2% JELLY* 1 applic TOPICAL DAILY 05/18/18 [History Confirmed 05/18/18] Magnesium Hydroxide LIQ* [Milk of Magnesia LIQ*] 30 ml PO DAILY PRN 05/18/18 [ History Confirmed 05/18/18] Mirtazapine TAB* [Remeron TAB*] 7.5 mg PO BEDTIME 05/18/18 [History Confirmed ] Multivitamins/Minerals TAB* [Theragran/minerals TAB*] 1 tab PO DAILY 05/18/18 [ History Confirmed 05/18/18] Ondansetron ODT TAB* [Zofran 4 MG Odt TAB*] 4 mg PO Q6H PRN 05/18/18 [History Confirmed 05/18/18] Oxybutynin XL TAB* [Ditropan XL TAB*] 15 mg PO DAILY 05/18/18 [History Confirmed 05/18/18] Polyethylene Glycol 3350* [Miralax*] 17 gm PO DAILY PRN 05/18/18 [History Confirmed 05/18/18] Senna TAB* [Senokot TAB*] 1 tab PO DAILY 05/18/18 [History Confirmed 05/18/18] Venlafaxine ER (NF) [Effexor ER (NF)] 150 mg PO DAILY 05/18/18 [History Confirmed 05/18/18] Venlafaxine EXT RELEASE CAP* [Effexor Xr CAP*] 75 mg PO DAILY 05/18/18 [History Confirmed 05/18/18] traMADol TAB* [Ultram*] 50 mg PO Q6HR PRN 05/18/18 [History Confirmed 05/18/18] PMH/Surg Hx/FS Hx/Imm Hx Previously Healthy: No - MS Endocrine/Hematology History: Reports: Hx Anemia Denies: Hx Anticoagulant Therapy, Hx Blood Disorders, Hx Blood Transfusions, Hx Bone Marrow Disease, Hx Diabetes, Hx Systemic Lupus Erythematosus, Hx Sickle Cell Disease, Hx Thyroid Disease, Hx Unexplained Bleeding, Other Endocrine/ Hematological Disorders Cardiovascular History: Denies: Hx Aneurysm, Hx Angina, Hx Angioplasty, Hx Auto Implanted Cardiovert Defib, Hx Cardiac Arrest, Hx Cardiomegaly, Hx Congenital Heart Disease, Hx Congestive Heart Failure, Hx Coronary Artery Disease, Hx Deep Vein Thrombosis, Hx Hypercholesterolemia, Hx Hypotension, Hx Hypertension, Hx Pacemaker/ICD, Hx Peripheral Vascular Disease, Hx Rheumatic Fever, Hx Syncope, Hx Valvular Heart Disease, Other Cardiovascular Problems/Disorders Respiratory History: Denies: Hx Asthma, Hx Bronchopulmonary Dysplasia, Hx Chronic Bronchitis, Hx Chronic Obstructive Pulmonary Disease (COPD), Hx Cystic Fibrosis, Hx Lung Cancer , Hx Pleural Effusion, Hx Pneumonia, Hx Pulmonary Edema, Hx Pulmonary Embolism, Hx Seasonal Allergies, Hx Sleep Apnea, Other Respiratory Problems/Disorders GI History: Reports: Other GI Disorders - diverting colostomy Denies: Hx Cirrhosis, Hx Crohn's Disease, Hx Diverticulosis, Hx Gall Bladder Disease, Hx Gastroesophageal Reflux Disease, Hx Gastrointestinal Bleed, Hx Hiatal Hernia, Hx Irritable Bowel, Hx Jaundice, Hx Obstructive Bowel, Hx Pyloric Stenosis, Hx Ulcer History: Reports: Hx Kidney Stones, Hx Renal Disease - BAY D/T MS AND LACK OF MOBILITY, Other Problems/Disorders - frequent UTIs has indwelling bay Denies: Hx Acute Renal Failure, Hx Benign Prostatic Hyperplasia, Hx Chronic Renal Failure, Hx Dialysis, Hx Kidney Infection Musculoskeletal History: Reports: Other Musculoskeletal History - contractures of LE's, MS, Chronic Osteomyelitis Denies: Hx Arthritis, Hx Back Problems, Hx Bursitis, Hx Congenital Bone Abnormalities, Hx Fibromyalgia, Hx Gout, Hx Orthopedic Injury, Hx Osteoporosis, Hx Scoliosis, Hx Tendonitis Sensory History: Reports: Hx Contacts or Glasses Denies: Hx Cataracts, Hx Eye Injury, Hx Eye Prosthesis, Hx Glaucoma, Hx Macular Degeneration, Hx Vision Problem, Hx Deafness, Hx Hearing Aid Opthamlomology History: Reports: Hx Contacts or Glasses Denies: Hx Cataracts, Hx Eye Injury, Hx Eye Prosthesis, Hx Glaucoma, Hx Macular Degeneration, Hx Vision Problem Neurological History: Reports: Other Neuro Impairments/Disorders - MS Denies: Hx Dementia, Hx Developmental Delay, Hx Headaches, Hx Migraine, Hx Seizures, Hx Spinal Cord Injury, Hx Transient Ischemic Attacks (TIA) Psychiatric History: Reports: Hx Depression Denies: Hx Anxiety, Hx Attention Deficit Hyperactivity Disorder, Hx Autism, Hx Eating Disorder, Hx Oppositional Comal Disorder, Hx Panic Disorder, Hx Post Traumatic Stress Disorder, Hx Inpatient Treatment, Hx Community Mental Health Tx, Hx Schizophrenia, Hx Bipolar Disorder, Hx Suicide Attempt, Hx of Violent Episodes Against Others, Hx Substance Abuse, Other Psychiatric Issues/ Disorders - Surgical History Surgery Procedure, Year, and Place: 2009 at [place]-colostomy placement for non healing buttock wounds, , Appendectomy, Cholecystectomy Hx Anesthesia Reactions: No - Immunization History Date of Tetanus Vaccine: up to date Infectious Disease History: No Infectious Disease History: Reports: Hx of Known/Suspected MRSA - MRSA in sacral wound per pt. Denies: Hx Clostridium Difficile, Hx Hepatitis, Hx Human Immunodeficiency Virus (HIV), Hx Shingles, Hx Tuberculosis, Traveled Outside the [place] in Last 30 Days - Family History Known Family History: Positive: Cardiac Disease - [place], Diabetes - father Negative: Other - negative for MS Family History: R & n/C - Social History Occupation: Disabled Lives: At [facility] Alcohol Use: None Hx Substance Use: No Substance Use Type: Reports: None Hx Tobacco Use: No Smoking Status (MU): Never Smoked Tobacco Review of Systems Negative: Fever Negative: Chest Pain Negative: Shortness Of Breath Gastrointestinal: Other - colostomy Negative: Vomiting, Nausea Positive: other - chronic bay, recent UTI Skin: Other - decubitus buttocks, followed at wound clinic Neurological: Other - Dizziness, room spinning Positive: Headache - Occasional Psychological: Normal All Other Systems Reviewed And Are Negative: Yes Physical Exam - Summary Physical Exam Summary: Appearance: Chronically ill-appearing, moderate pain distress, obese, examined initially in wheelchair Skin: Warm, color reflects adequate perfusion, dry (declines exam but describes chronic wound on her buttocks). Discoloration of lower left extremity, chronic. Head: Normal Head/Face inspection, atraumatic Eyes: Conjunctiva clear ENT: Normal inspection, TMs normal Neck: Supple, no nodes, no JVD Respiratory: Lungs clear, normal breath sounds, no respiratory distress Cardio: RRR, No murmur, pulses normal, brisk capillary refill Abdomen: Soft, nontender. Colostomy LLQ. Bowel sounds: Present Musculoskeletal: no calf tenderness, no edema. Contractures of lower extremities. Psychological: Normal Neuro: Alert O x 3, CN II-XII intact, Motor no new weakness, no focal deficit, nl finger to nose Triage Information Reviewed: Yes Vital Signs On Initial Exam: Initial Vitals Temp Pulse Resp BP Pulse Ox 97.5 F 98 16 139/75 95 18 13:09 05/18/18 13:09 05/18/18 13:09 05/18/18 13:09 05/18/18 13:09 Vital Signs Reviewed: Yes Diagnostics - Vital Signs Vital Signs Temp Pulse Resp BP Pulse Ox 05/18/18 13:09 97.5 F 98 16 139/75 95 - Laboratory Result Diagrams: 05/18/18 14:55 05/18/18 14:55 Lab Statement: Any lab studies that have been ordered have been reviewed, and results considered in the medical decision making process. - Radiology CXR Xray Interpretation: No Acute Changes - 14:38: NO ACUTE DIAGNOSTIC FINDINGS. ED physician reviewed radiology report. Radiology Interpretation Completed By: Radiologist - EKG 13:09 Cardiac Rate: NL - 99 bpm EKG Rhythm: Sinus Rhythm EKG Interpretation: An EKG at 13:09 reveals nml AV/IV CT, nml QTc, and nml axis. EKG Comparison: No Significant Change - No change from 10/14/2007 Re-Evaluation - Re-Evaluation First Eval Re-Evaluation Time: 18:11 Change: Improved Comment: Meclizine helped the dizziness. Pt is agreeable to discharge by [facility]. Dizzy Course/Dx - Course Course Of Treatment: Pt is a 67 y/o female with hx MS, wheelchair bound, and chronic buttock wound, sent from the wound care center who c/o dizziness and occasional headache for [address] brain was normal. A CXR revealed no acute diagnostic findings. An EKG revealed normal rate of 99 bpm, sinus rhythm, normal AV/IV CT, normal QTc, normal axis, and no change from an EKG on 2006. Labs showed mildly elevated wbc count, elevated alk phos, elevated TSH. During the course, Meclizine was administered, which helped the dizziness. Dx is vertigo. Pt is discharged with a prescription for Meclizine. Pt medications and allergies reviewed in this visit. 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 We have prescribed 10 days of this for you. If this continues to help you, you will want your doctor to prescribe this for you. Return to the ER if you have new or worsening symptoms. - Billing Disposition and Condition Condition: STABLE Disposition: Home The documentation as recorded by the Alisha castellanos Jade accurately reflects the service I personally performed and the decisions made by , Cristine Buitrago MD.
== END 2018-05-18 18:43 | disposition home or self-care (01) ==
LOC: ED 13:07
DX: R42 Dizziness and giddiness (principal); L89.154 Pressure ulcer of sacral region, stage 4; R53.2 Functional quadriplegia; G35 Multiple sclerosis; Z93.3 Colostomy status; Z87.442 Personal history of urinary calculi; F32.9 Major depressive disorder, single episode, unspecified; L89.312 Pressure ulcer of right buttock, stage 2; M62.3 Immobility syndrome (paraplegic); E46 Unspecified protein-calorie malnutrition
CPT/HCPCS: 36415; 70450; 71045; 80053; 82550; 83605; 83735; 83880; 84443; 84484; 85025; 85610; 85730; 86140; 93005; 99283; A9270-GY

== ENCOUNTER → 2018-06-07 23:04 | Emergency (ER) | payer MEDICARE, MEDICAID ==
--- NOTE | 2018-06-07 23:20 | ED ---
GI/ HPI - HPI Summary HPI Summary: Patient is a 67-year-old female presenting to the ED with the urinary catheter problem. She states there has been no urine in her Hammer catheter bag since 11 AM. She endorses distention to her abdomen with slight tenderness. She states her aide came to change out the catheter and states he was working about one hour ago, but there was never any flow into the urine bag. Therefore, she called EMS. She denies any fevers, sweats, chills. History of catheter associated UTIs and has been placed on antibiotics frequently. - History of Current Complaint Time Seen by Provider: 06/07/18 23:11 Stated Complaint: CATHETER PROBLEM Hx Obtained From: Patient Onset/Duration: Started Hours Ago Timing: Constant Severity: Mild Current Severity: Mild Pain Characteristics: Cramping Associated Signs and Symptoms: Positive: Other: - catheter problem Aggravating Factor(s): Nothing Alleviating Factor(s): Nothing - Additional Pertinent History Primary Care Physician: SHIRLEY - Allergy/Home Medications Allergies/Adverse Reactions: Allergies Allergy/AdvReac Type Severity Reaction Status Date / Time duloxetine [From Cymbalta] Allergy Unknown Verified 06/07/18 23:30 Reaction Details morphine Allergy Unknown Verified 06/07/18 23:30 Reaction Details oxycodone Allergy Unknown Verified 06/07/18 23:30 Reaction Details PMH/Surg Hx/FS Hx/Imm Hx Previously Healthy: Yes Endocrine/Hematology History: Reports: Hx Anemia Denies: Hx Anticoagulant Therapy, Hx Blood Disorders, Hx Blood Transfusions, Hx Bone Marrow Disease, Hx Diabetes, Hx Systemic Lupus Erythematosus, Hx Sickle Cell Disease, Hx Thyroid Disease, Hx Unexplained Bleeding, Other Endocrine/ Hematological Disorders Cardiovascular History: Denies: Hx Aneurysm, Hx Angina, Hx Angioplasty, Hx Auto Implanted Cardiovert Defib, Hx Cardiac Arrest, Hx Cardiomegaly, Hx Congenital Heart Disease, Hx Congestive Heart Failure, Hx Coronary Artery Disease, Hx Deep Vein Thrombosis, Hx Hypercholesterolemia, Hx Hypotension, Hx Hypertension, Hx Pacemaker/ICD, Hx Peripheral Vascular Disease, Hx Rheumatic Fever, Hx Syncope, Hx Valvular Heart Disease, Other Cardiovascular Problems/Disorders Respiratory History: Denies: Hx Asthma, Hx Bronchopulmonary Dysplasia, Hx Chronic Bronchitis, Hx Chronic Obstructive Pulmonary Disease (COPD), Hx Cystic Fibrosis, Hx Lung Cancer , Hx Pleural Effusion, Hx Pneumonia, Hx Pulmonary Edema, Hx Pulmonary Embolism, Hx Seasonal Allergies, Hx Sleep Apnea, Other Respiratory Problems/Disorders GI History: Reports: Hx Ileostomy - colostomy for buttocks wounds, Other GI Disorders - diverting colostomy Denies: Hx Cirrhosis, Hx Crohn's Disease, Hx Diverticulosis, Hx Gall Bladder Disease, Hx Gastroesophageal Reflux Disease, Hx Gastrointestinal Bleed, Hx Hiatal Hernia, Hx Irritable Bowel, Hx Jaundice, Hx Obstructive Bowel, Hx Pyloric Stenosis, Hx Ulcer History: Reports: Hx Kidney Stones, Hx Renal Disease - 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, Other Problems/Disorders - frequent UTIs has indwelling hammer Denies: Hx Acute Renal Failure, Hx Benign Prostatic Hyperplasia, Hx Chronic Renal Failure, Hx Dialysis, Hx Kidney Infection Musculoskeletal History: Reports: Other Musculoskeletal History - contractures of LE's, MS, Chronic Osteomyelitis Denies: Hx Arthritis, Hx Back Problems, Hx Bursitis, Hx Congenital Bone Abnormalities, Hx Fibromyalgia, Hx Gout, Hx Orthopedic Injury, Hx Osteoporosis, Hx Scoliosis, Hx Tendonitis Sensory History: Reports: Hx Contacts or Glasses Denies: Hx Cataracts, Hx Eye Injury, Hx Eye Prosthesis, Hx Glaucoma, Hx Macular Degeneration, Hx Vision Problem, Hx Deafness, Hx Hearing Aid Opthamlomology History: Reports: Hx Contacts or Glasses Denies: Hx Cataracts, Hx Eye Injury, Hx Eye Prosthesis, Hx Glaucoma, Hx Macular Degeneration, Hx Vision Problem Neurological History: Reports: Other Neuro Impairments/Disorders - MS Denies: Hx Dementia, Hx Developmental Delay, Hx Headaches, Hx Migraine, Hx Seizures, Hx Spinal Cord Injury, Hx Transient Ischemic Attacks (TIA) Psychiatric History: Reports: Hx Depression Denies: Hx Anxiety, Hx Attention Deficit Hyperactivity Disorder, Hx Autism, Hx Eating Disorder, Hx Oppositional [place] Disorder, Hx Panic Disorder, Hx Post Traumatic Stress Disorder, Hx Inpatient Treatment, Hx Community Mental Health Tx, Hx Schizophrenia, Hx Bipolar Disorder, Hx Suicide Attempt, Hx of Violent Episodes Against Others, Hx Substance Abuse, Other Psychiatric Issues/ Disorders - Surgical History Surgery Procedure, Year, and Place: 2010 at [place]-colostomy placement for non healing buttock wounds, , Appendectomy, Cholecystectomy Hx Anesthesia Reactions: No - Immunization History Date of Tetanus Vaccine: up to date Hx Pertussis Vaccination: No Immunizations Up to Date: Unable to Obtain/Confirm Infectious Disease History: Reports: Hx of Known/Suspected MRSA - MRSA in sacral wound per pt. Denies: Hx Clostridium Difficile, Hx Hepatitis, Hx Human Immunodeficiency Virus (HIV), Hx Shingles, Hx Tuberculosis - Family History Known Family History: Positive: None, Cardiac Disease - [place], Diabetes - father Negative: Other - negative for MS Family History: R & n/C - Social History Occupation: Unemployed Lives: Alone Alcohol Use: None Hx Substance Use: No Substance Use Type: Reports: None Hx Tobacco Use: No Smoking Status (MU): Never Smoked Tobacco Review of Systems Constitutional: Negative Negative: Fever, Chills, Fatigue, Skin Diaphoresis Negative: Palpitations, Chest Pain Negative: Shortness Of Breath, Cough Positive: Abdominal Pain - distention Positive: other - catheter occlusion Negative: Arthralgia, Myalgia, Decreased ROM, Edema Negative: Rash, Bruising Negative: Headache, Weakness, Paresthesia, Numbness Psychological: Normal All Other Systems Reviewed And Are Negative: Yes Physical Exam Triage Information Reviewed: Yes Vital Signs Reviewed: Yes Appearance: Positive: Well-Appearing, Well-Nourished Skin: Positive: Warm, Skin Color Reflects Adequate Perfusion Head/Face: Positive: Normal Head/Face Inspection Neck: Positive: No Lymphadenopathy Respiratory/Lung Sounds: Positive: Clear to Auscultation Cardiovascular: Positive: RRR, Pulses are Symmetrical in both Upper and Lower Extremities Abdomen Description: Positive: Nontender, No Organomegaly Bowel Sounds: Positive: Present Pelvic Exam: Positive: Other - catheter flowing freely Neurological: Positive: Sensory/Motor Intact, Alert, Oriented to Person Place, Time, Speech Normal Psychiatric: Positive: Normal, Affect/Mood Appropriate AVPU Assessment: Alert GIGU Course/Dx - Course Course Of Treatment: On arrival, the catheter bag shows approximately 150 cc, however after adjustment of the catheter, urine flowed freely without the need for change of the catheter. She endorses immediately feeling less distention and feeling improved. Hammer catheter with 375 cc with good output. Bag changed with another 100 cc output. Patient is no longer distended and is no longer in discomfort. She denies any suprapubic tenderness which is common for her with UTIs. - Diagnoses Differential Diagnoses - Female: Urinary Tract Infection Provider Diagnoses: Hammer catheter problem Discharge - Sign-Out/Discharge Documenting (check all that apply): Discharge/Admit/Transfer - Discharge Plan Condition: Stable Disposition: HOME Referrals: Ariane Burton MD [Primary Care Provider] - Additional Instructions: Please follow up with your PCP - Billing Disposition and Condition Condition: STABLE Disposition: Home
[2018-06-07 23:30] VITALS: BP 139/79
== END | disposition home or self-care (01) ==
LOC: ED 23:04
DX: J18.9 Pneumonia, unspecified organism (principal); R07.89 Other chest pain
CPT/HCPCS: 99283

== ENCOUNTER 2018-10-19 20:08 | Emergency (ER) | payer MEDICARE, MEDICAID ==
[2018-10-19] MEDS ORDERED: Polyethylene Glycol 3350* 17 GM PACKET PO ONE (20:30)
--- NOTE | 2018-10-19 20:30 | ED ---
GI/ HPI - HPI Summary HPI Summary: A 68 y/o F with MS, brought in by ambulance, presents to ED for constipation onset 8 days ago. Pt lives at [facility]. Associated sx: suprapubic abd pain, nausea. She states her face was very red and hot for past two days. Pt has a known hernia and a colostomy bag. Denies CP, SOB. She says she took her morning medications this AM. The aide at [facility] told EMS that there was stool in the colostomy bag this AM, but pt states the aide is "stupid" and that she is "lying " to everyone. - History of Current Complaint Time Seen by Provider: 10/19/18 20:21 Stated Complaint: CONSTIPATION Hx Obtained From: Patient, EMS Onset/Duration: Started Days Ago, Still Present Timing: Constant Severity: Moderate Current Severity: Moderate Location of Pain: Suprapubic - abd pain Associated Signs and Symptoms: Positive: Nausea, Constipation, Other: - pos: flushed; neg: SOB. Negative: Chest Pain - Additional Pertinent History Primary Care Physician: SHIRLEY - Allergy/Home Medications Allergies/Adverse Reactions: Allergies Allergy/AdvReac Type Severity Reaction Status Date / Time duloxetine [From Cymbalta] Allergy Unknown Verified 06/07/18 23:30 Reaction Details morphine Allergy Unknown Verified 06/07/18 23:30 Reaction Details oxycodone Allergy Unknown Verified 06/07/18 23:30 Reaction Details PMH/Surg Hx/FS Hx/Imm Hx Previously Healthy: No Endocrine/Hematology History: Reports: Hx Anemia Denies: Hx Anticoagulant Therapy, Hx Blood Disorders, Hx Blood Transfusions, Hx Bone Marrow Disease, Hx Diabetes, Hx Systemic Lupus Erythematosus, Hx Sickle Cell Disease, Hx Thyroid Disease, Hx Unexplained Bleeding, Other Endocrine/ Hematological Disorders Cardiovascular History: Denies: Hx Aneurysm, Hx Angina, Hx Angioplasty, Hx Auto Implanted Cardiovert Defib, Hx Cardiac Arrest, Hx Cardiomegaly, Hx Congenital Heart Disease, Hx Congestive Heart Failure, Hx Coronary Artery Disease, Hx Deep Vein Thrombosis, Hx Hypercholesterolemia, Hx Hypotension, Hx Hypertension, Hx Pacemaker/ICD, Hx Peripheral Vascular Disease, Hx Rheumatic Fever, Hx Syncope, Hx Valvular Heart Disease, Other Cardiovascular Problems/Disorders Respiratory History: Denies: Hx Asthma, Hx Bronchopulmonary Dysplasia, Hx Chronic Bronchitis, Hx Chronic Obstructive Pulmonary Disease (COPD), Hx Cystic Fibrosis, Hx Lung Cancer , Hx Pleural Effusion, Hx Pneumonia, Hx Pulmonary Edema, Hx Pulmonary Embolism, Hx Seasonal Allergies, Hx Sleep Apnea, Other Respiratory Problems/Disorders GI History: Reports: Hx Ileostomy - colostomy for buttocks wounds, Other GI Disorders - diverting colostomy Denies: Hx Cirrhosis, Hx Crohn's Disease, Hx Diverticulosis, Hx Gall Bladder Disease, Hx Gastroesophageal Reflux Disease, Hx Gastrointestinal Bleed, Hx Hiatal Hernia, Hx Irritable Bowel, Hx Jaundice, Hx Obstructive Bowel, Hx Pyloric Stenosis, Hx Ulcer History: Reports: Hx Kidney Stones, Hx Renal Disease - BAY D/T MS AND LACK OF MOBILITY, Other Problems/Disorders - frequent UTIs has indwelling bay Denies: Hx Acute Renal Failure, Hx Benign Prostatic Hyperplasia, Hx Chronic Renal Failure, Hx Dialysis, Hx Kidney Infection Musculoskeletal History: Reports: Other Musculoskeletal History - contractures of LE's, MS, Chronic Osteomyelitis Denies: Hx Arthritis, Hx Back Problems, Hx Bursitis, Hx Congenital Bone Abnormalities, Hx Fibromyalgia, Hx Gout, Hx Orthopedic Injury, Hx Osteoporosis, Hx Scoliosis, Hx Tendonitis Sensory History: Reports: Hx Contacts or Glasses Denies: Hx Cataracts, Hx Eye Injury, Hx Eye Prosthesis, Hx Glaucoma, Hx Macular Degeneration, Hx Vision Problem, Hx Deafness, Hx Hearing Aid Opthamlomology History: Reports: Hx Contacts or Glasses Denies: Hx Cataracts, Hx Eye Injury, Hx Eye Prosthesis, Hx Glaucoma, Hx Macular Degeneration, Hx Vision Problem Neurological History: Reports: Other Neuro Impairments/Disorders - MS Denies: Hx Dementia, Hx Developmental Delay, Hx Headaches, Hx Migraine, Hx Seizures, Hx Spinal Cord Injury, Hx Transient Ischemic Attacks (TIA) Psychiatric History: Reports: Hx Depression Denies: Hx Anxiety, Hx Attention Deficit Hyperactivity Disorder, Hx Autism, Hx Eating Disorder, Hx Oppositional [place] Disorder, Hx Panic Disorder, Hx Post Traumatic Stress Disorder, Hx Inpatient Treatment, Hx Community Mental Health Tx, Hx Schizophrenia, Hx Bipolar Disorder, Hx Suicide Attempt, Hx of Violent Episodes Against Others, Hx Substance Abuse, Other Psychiatric Issues/ Disorders - Surgical History Surgery Procedure, Year, and Place: 2009 at [place]-colostomy placement for non healing buttock wounds, , Appendectomy, Cholecystectomy Hx Anesthesia Reactions: No - Immunization History Date of Tetanus Vaccine: up to date Infectious Disease History: Reports: Hx of Known/Suspected MRSA - MRSA in sacral wound per pt. Denies: Hx Clostridium Difficile, Hx Hepatitis, Hx Human Immunodeficiency Virus (HIV), Hx Shingles, Hx Tuberculosis - Family History Known Family History: Positive: Cardiac Disease - [place], Diabetes - father Negative: Other - negative for MS - Social History Occupation: Retired Lives: At [facility] Alcohol Use: None Hx Substance Use: No Substance Use Type: Reports: None Hx Tobacco Use: No Smoking Status (MU): Never Smoked Tobacco Review of Systems Positive: Other - pos: flushed. Negative: Fever, Chills Negative: Erythema Negative: Sore Throat Negative: Chest Pain Negative: Shortness Of Breath, Cough Positive: Abdominal Pain, Nausea, Other - pos: constipation. Negative: Vomiting Negative: dysuria, hematuria Negative: Myalgia, Edema Negative: Rash Neurological: Other - neg: dizziness All Other Systems Reviewed And Are Negative: Yes Physical Exam - Summary Physical Exam Summary: Constitutional: Well-developed, Well-nourished, Alert. (-) Distressed Skin: Warm, Dry HENT: Normocephalic; Atraumatic Eyes: Conjunctiva normal Neck: Musculoskeletal ROM normal neck. (-) JVD, (-) Stridor, (-) Tracheal deviation Cardio: Rhythm regular, rate normal, Heart sounds normal; Intact distal pulses; The pedal pulses are 2+ and symmetric. Radial pulses are 2+ and symmetric. (-) Murmur Pulmonary/Chest wall: Effort normal. (-) Respiratory distress, (-) Wheezes, (-) Rales Abd: Soft, (-) epigastric tenderness, (-) Distension, (-) Guarding, (-) Rebound. Colostomy bag is empty. Musculoskeletal: (-) Edema Lymph: (-) Cervical adenopathy Neuro: Alert, Oriented x3 Psych: Mood and affect Normal Triage Information Reviewed: Yes Vital Signs On Initial Exam: Initial Vitals Temp Pulse Resp BP Pulse Ox 98.8 F 120 20 143/91 96 10/19/18 20:20 10/19/18 20:20 10/19/18 20:20 10/19/18 20:20 10/19/18 20:20 Vital Signs Reviewed: Yes Diagnostics - Vital Signs Vital Signs Temp Pulse Resp BP Pulse Ox 10/19/18 20:20 98.8 F 120 20 143/91 96 - Laboratory Lab Statement: Any lab studies that have been ordered have been reviewed, and results considered in the medical decision making process. - Radiology ABD/KUB XR Radiology Interpretation Completed By: ED Physician Summary of Radiographic Findings: No signs of obstruction, no air fluid levels. GIGU Course/Dx - Course Course Of Treatment: Pt is a 68 y/o F with MS presenting for constipation onset 8 days ago. Pt lives at [facility]. Associated sx: suprapubic abd pain, nausea, feeling flushed. Pt has a known hernia and a colostomy bag. ABD/KUB showed No signs of obstruction, no air fluid levels. Will discontinue Ditropan and Meclizine, and decreased Tramadol to every 12 hours. - Diagnoses Provider Diagnoses: Constipation, Polypharmacy, Medication adverse effect Discharge - Sign-Out/Discharge Documenting (check all that apply): Patient Departure - DC - Discharge Plan Condition: Stable Disposition: HOME Prescriptions: traMADol TAB* [Ultram*] 50 mg PO Q12H PRN #10 tab MDD 2 PRN Reason: Pain - Severe Patient Education Materials: Tramadol (By mouth), Constipation (ED) Referrals: Ariane Burton MD [Primary Care Provider] - Additional Instructions: Stop taking the Meclizine and Ditropan. Only take Tramadol every 12 hours. Follow up with your primary care provider in 2 days. Return to the emergency department for changing or worsening symptoms. - Attestation Statements Document Initiated by Scribe: Yes Documenting Scribe: Juancho Álvarez Provider For Whom Scribe is Documenting (Include Credential): Dr. Enrrique Quiroz MD Scribe Attestation: I, Juancho Álvarez, scribed for Dr. Enrrique Quiroz MD on 10/19/18 at 2051.
[2018-10-19 21:19] VITALS: BP 130/89
== END 2018-10-19 21:10 | disposition home or self-care (01) ==
LOC: ED 20:08
DX: K59.00 Constipation, unspecified (principal); R11.0 Nausea; R23.2 Flushing; R10.30 Lower abdominal pain, unspecified; T44.3X5A Adverse effect of other parasympatholytics [anticholinergics and antimuscarinics] and spasmolytics, initial encounter; T45.0X5A Adverse effect of antiallergic and antiemetic drugs, initial encounter; Y92.129 Unspecified place in nursing home as the place of occurrence of the external cause; K43.9 Ventral hernia without obstruction or gangrene; Z93.3 Colostomy status; Z88.5 Allergy status to narcotic agent; Z88.8 Allergy status to other drugs, medicaments and biological substances
CPT/HCPCS: 74018; 99284; A9270-GY

== ENCOUNTER 2018-12-29 00:47 | Emergency (ER) | payer MEDICARE, MEDICAID ==
[2018-12-29] MEDS ORDERED: NS 0.9% 1000 ML** 1,000 ML IV.FLUID IV ONE (01:36)
[2018-12-29 01:43] LABS: Urine Appearance Cloudy; Urine Bacteria 1+ (Absent); Urine Bilirubin Negative (Negative); Urine Blood 2+ (Negative); Urine Color Yellow; Urine Glucose Negative (Negative); Urine Ketones Negative (Negative); Urine Nitrite Positive (Negative); Urine Protein Negative (Negative); Urine Red Blood Cell 3+(>10/hpf) (Absent); Urine Specific Gravity 1.006 (1.010-1.030); Urine Squamous Epithelial Cell Present (Absent); Urine Urobilinogen Negative (Negative); Urine White Blood Cell 3+(>20/hpf) (Absent)
--- NOTE | 2018-12-29 01:46 | ED ---
GI/ HPI - HPI Summary HPI Summary: This patient is a 68 year old F presenting to ED with a chief complaint of myalgia with pain especially where her bladder is since yesterday. She has had MS for 40 years which has caused her bladder issues which forced her get a catheter. The catheter causes her to get infections often. The CC is described as felt like someone hit her. She took Tylenol for prior treatment. The patient rates the pain 8/10 in severity. Symptoms aggravated by nothing. Symptoms alleviated by nothing. Patient reports fever, SAMANIEGO, and nausea (resolved) . The patient uses a wheelchair to get around. - History of Current Complaint Chief Complaint: EDUrogenitalProblems Stated Complaint: POS UTI Hx Obtained From: Patient Timing: Constant, Lasting Days Severity: Severe Current Severity: Severe - 8/10 Pain Intensity: 8 Location of Pain: Other - where her bladder is Associated Signs and Symptoms: Positive: Nausea, Fever, Other: - headache Aggravating Factor(s): Nothing Alleviating Factor(s): Nothing - Additional Pertinent History Primary Care Physician: SHIRLEY - Allergy/Home Medications Allergies/Adverse Reactions: Allergies Allergy/AdvReac Type Severity Reaction Status Date / Time duloxetine [From Cymbalta] Allergy Unknown Verified 12/29/18 01:05 Reaction Details morphine Allergy Unknown Verified 12/29/18 01:05 Reaction Details oxycodone Allergy Unknown Verified 12/29/18 01:05 Reaction Details PMH/Surg Hx/FS Hx/Imm Hx Endocrine/Hematology History: Reports: Hx Anemia Denies: Hx Anticoagulant Therapy, Hx Blood Disorders, Hx Blood Transfusions, Hx Bone Marrow Disease, Hx Diabetes, Hx Systemic Lupus Erythematosus, Hx Sickle Cell Disease, Hx Thyroid Disease, Hx Unexplained Bleeding, Other Endocrine/ Hematological Disorders Cardiovascular History: Denies: Hx Aneurysm, Hx Angina, Hx Angioplasty, Hx Auto Implanted Cardiovert Defib, Hx Cardiac Arrest, Hx Cardiomegaly, Hx Congenital Heart Disease, Hx Congestive Heart Failure, Hx Coronary Artery Disease, Hx Deep Vein Thrombosis, Hx Hypercholesterolemia, Hx Hypotension, Hx Hypertension, Hx Pacemaker/ICD, Hx Peripheral Vascular Disease, Hx Rheumatic Fever, Hx Syncope, Hx Valvular Heart Disease, Other Cardiovascular Problems/Disorders Respiratory History: Denies: Hx Asthma, Hx Bronchopulmonary Dysplasia, Hx Chronic Bronchitis, Hx Chronic Obstructive Pulmonary Disease (COPD), Hx Cystic Fibrosis, Hx Lung Cancer , Hx Pleural Effusion, Hx Pneumonia, Hx Pulmonary Edema, Hx Pulmonary Embolism, Hx Seasonal Allergies, Hx Sleep Apnea, Other Respiratory Problems/Disorders GI History: Reports: Hx Ileostomy - colostomy for buttocks wounds, Other GI Disorders - diverting colostomy Denies: Hx Cirrhosis, Hx Crohn's Disease, Hx Diverticulosis, Hx Gall Bladder Disease, Hx Gastroesophageal Reflux Disease, Hx Gastrointestinal Bleed, Hx Hiatal Hernia, Hx Irritable Bowel, Hx Jaundice, Hx Obstructive Bowel, Hx Pyloric Stenosis, Hx Ulcer History: Reports: Hx Kidney Stones, Hx Renal Disease - BAY D/T MS AND LACK OF MOBILITY, Other Problems/Disorders - frequent UTIs has indwelling bay Denies: Hx Acute Renal Failure, Hx Benign Prostatic Hyperplasia, Hx Chronic Renal Failure, Hx Dialysis, Hx Kidney Infection Musculoskeletal History: Reports: Other Musculoskeletal History - contractures of LE's, MS, Chronic Osteomyelitis Denies: Hx Arthritis, Hx Back Problems, Hx Bursitis, Hx Congenital Bone Abnormalities, Hx Fibromyalgia, Hx Gout, Hx Orthopedic Injury, Hx Osteoporosis, Hx Scoliosis, Hx Tendonitis Sensory History: Reports: Hx Contacts or Glasses Denies: Hx Cataracts, Hx Eye Injury, Hx Eye Prosthesis, Hx Glaucoma, Hx Macular Degeneration, Hx Vision Problem, Hx Deafness, Hx Hearing Aid Opthamlomology History: Reports: Hx Contacts or Glasses Denies: Hx Cataracts, Hx Eye Injury, Hx Eye Prosthesis, Hx Glaucoma, Hx Macular Degeneration, Hx Vision Problem Neurological History: Reports: Other Neuro Impairments/Disorders - MS Denies: Hx Dementia, Hx Developmental Delay, Hx Headaches, Hx Migraine, Hx Seizures, Hx Spinal Cord Injury, Hx Transient Ischemic Attacks (TIA) Psychiatric History: Reports: Hx Depression Denies: Hx Anxiety, Hx Attention Deficit Hyperactivity Disorder, Hx Autism, Hx Eating Disorder, Hx Oppositional Mclean Disorder, Hx Panic Disorder, Hx Post Traumatic Stress Disorder, Hx Inpatient Treatment, Hx Community Mental Health Tx, Hx Schizophrenia, Hx Bipolar Disorder, Hx Suicide Attempt, Hx of Violent Episodes Against Others, Hx Substance Abuse, Other Psychiatric Issues/ Disorders - Surgical History Surgery Procedure, Year, and Place: 2009 at [place]-colostomy placement for non healing buttock wounds, , Appendectomy, Cholecystectomy Hx Anesthesia Reactions: No - Immunization History Date of Tetanus Vaccine: unk Date of Influenza Vaccine: fall 2017 Infectious Disease History: No Infectious Disease History: Reports: Hx of Known/Suspected MRSA - MRSA in sacral wound per pt. Denies: Hx Clostridium Difficile, Hx Hepatitis, Hx Human Immunodeficiency Virus (HIV), Hx Shingles, Hx Tuberculosis, Traveled Outside the [place] in Last 30 Days - Family History Known Family History: Positive: Cardiac Disease - [place], Diabetes - father Negative: Other - negative for MS Family History: R & n/C - Social History Alcohol Use: None Hx Substance Use: No Substance Use Type: Reports: None Hx Tobacco Use: No Smoking Status (MU): Never Smoked Tobacco Review of Systems Positive: Fever Positive: Nausea Positive: pain - where her bladder is Positive: Myalgia Positive: Headache All Other Systems Reviewed And Are Negative: Yes Physical Exam - Summary Physical Exam Summary: Appearance: Well-appearing, Well-nourished, lying in bed comfortably Skin: Warm, dry, no obvious rash Eyes: sclera anicteric, no conjunctival pallor ENT: mucous membranes moist, pharynx appears normal Neck: Supple, nontender Respiratory: Clear to auscultation, no signs of respiratory distress Cardiovascular: Normal S1, S2. No murmurs. Normal distal pulses in tibial and radial bilaterally. Abdomen: Soft, nontender, normal active bowel sounds present Musculoskeletal: Lower extremities are atrophic and contracted. Intrinsic muscle loss in the R hand. Neurological: A&Ox3, awake and alert, mentation is normal, speech is fluent and appropriate Psychiatric: affect is normal, does not appear anxious or depressed Triage Information Reviewed: Yes Vital Signs On Initial Exam: Initial Vitals Pulse Pulse Ox 108 94 12/29/18 00:53 12/29/18 00:53 Vital Signs Reviewed: Yes Diagnostics - Vital Signs Vital Signs Temp Pulse Resp BP Pulse Ox 12/29/18 01:24 116 41 130/67 92 12/29/18 01:03 100.2 F 112 18 140/78 93 12/29/18 01:00 120 35 94 12/29/18 00:54 110 10 140/78 93 12/29/18 00:53 108 94 - Laboratory Result Diagrams: 12/29/18 02:17 12/29/18 02:17 Lab Statement: Any lab studies that have been ordered have been reviewed, and results considered in the medical decision making process. GIGU Course/Dx - Course Assessment/Plan: This patient is a 68 year old F presenting to ED with a chief complaint of myalgia with pain especially where her bladder is since yesterday. The patient will be discharged with dx of UTI. Patient understands and agrees with this plan. - Diagnoses Differential Diagnoses - Female: Urinary Tract Infection Provider Diagnoses: Urinary tract infection Discharge - Sign-Out/Discharge Documenting (check all that apply): Patient Departure - discharge Patient Received Moderate/Deep Sedation with Procedure: No - Discharge Plan Condition: Good Disposition: HOME Prescriptions: Levofloxacin TAB* [Levaquin TAB*] 500 mg PO DAILY #7 tab Patient Education Materials: Catheter-associated Urinary Tract Infection (ED) Referrals: Ariane Burton MD [Primary Care Provider] - Additional Instructions: It can be difficult to tell in someone with a chronic bay catheter whether there is infection present or not. Because your symptoms are suggestive of an infection to you I have prescribed an antibiotic, but the staff at your facility will need to check the culture and sensitivity results that will be available later this week to see if indeed there is an infection, and if so whether it will respond to the antibiotic prescribed or whether that needs to be changed or added to. - Billing Disposition and Condition Condition: GOOD Disposition: Home - Attestation Statements Document Initiated by Octaviano: Yes Documenting Scribe: Christophe Wong Provider For Whom Octaviano is Documenting (Include Credential): Shreyas Le MD Scribe Attestation: Christophe Wells, scribed for Shreyas Le MD on 12/31/18 at 0218. Scribe Documentation Reviewed: Yes Provider Attestation: The documentation as recorded by the Christophe castellanos accurately reflects the service I personally performed and the decisions made by me, Shreyas Le MD Status of Scribe Document: Viewed
[2018-12-29 02:38] LABS: INR 1.12 (0.77-1.02)
[2018-12-29 02:46] LABS: Albumin 3.4 g/dL (3.2-5.2); Albumin/Globulin Ratio 0.9 (1-3); BUN/Creatinine Ratio 17.8 (8-20); Calcium 8.4 mg/dL (8.6-10.3); EGFR African American 166.7 (>60); EGFR Non-African American 137.7 (>60); Globulin 3.9 g/dL (2-4); Potassium 3.5 mmol/L (3.5-5.0); Total Bilirubin 0.2 mg/dL (0.2-1.0); Total Protein 7.3 g/dL (6.4-8.9)
[2018-12-29 02:50] LABS: Hematocrit 33 % (35-47); Hemoglobin 10.4 g/dl (12.0-16.0); Mean Corpuscular HGB Conc 31 g/dl (31-36); Mean Corpuscular Hemoglobin 23 pg (27-31); Mean Corpuscular Volume 73 fL (80-97); Mean Platelet Volume 7.2 fL (7.4-10.4); Platelet Count 451 10^3/ul (150-450); Red Blood Count 4.51 10^6/ul (4.00-5.40); Red Cell Distribution Width 17 % (10.5-15); White Blood Count 9.6 10^3/ul (3.5-10.8)
[2018-12-29 03:16] LABS: ABS Basophils 0.1 10^3/ul (0-0.2); ABS Eosinophils 0.1 10^3/ul (0-0.6); ABS Lymphocytes 1.4 10^3/ul (1.0-4.8); ABS Monocytes 0.8 10^3/ul (0-0.8); ABS Neutrophils 7.3 10^3/ul (1.5-7.7); ABS Nucleated RBC 0 10^3/ul; Lymphocyte % 14.9 %; Nucleated Red Blood Cells % 0
[2018-12-29] MEDS ORDERED: Levofloxacin TAB* 500 MG PO ONE (04:39)
[2018-12-29 06:40] VITALS: BP 156/93
--- NOTE | 2019-01-01 12:32 | PN ---
Progress Note - Progress Note Date of Service: 12/29/18 Note: Pt. seen in ED 12/29 and started on Levaquin for UTI. Urine culture today is growing providencia stuartii which is resistant to levaquin and proteus mirabilis. Pt. resides at [facility]. I called and spoke with pt.'s nurse, Shai, at [phone]. Culture faxed over for pt.'s attending physician.
== END 2018-12-29 06:39 | disposition home or self-care (01) ==
LOC: ED 00:47
DX: N39.0 Urinary tract infection, site not specified (principal); F32.9 Major depressive disorder, single episode, unspecified; D64.9 Anemia, unspecified; Z88.5 Allergy status to narcotic agent
CPT/HCPCS: 36415; 80053; 81003; 81015; 83605; 84484; 85025; 85610; 87040; 87077; 87086; 87186; 96360; 96361; 99284

== ENCOUNTER 2019-04-11 17:36 | Emergency (ER) | payer MEDICARE, MEDICAID ==
[2019-04-11] MEDS ORDERED: Ondansetron INJ* 2 MG/ML VIAL IV ONE (18:00)
[2019-04-11] MEDS ORDERED: NS 0.9% 1000 ML** 1,000 ML IV ONE (18:00)
--- NOTE | 2019-04-11 18:07 | ED ---
GI/ HPI - HPI Summary HPI Summary: 68-year-old female presents with lower abdominal pain for the past 2 weeks. She states pain has been increasing. She states her colostomy was changed yesterday and she had extreme pain with it. She admits to nauseous. States her urine was darker and more foul swelling yesterday. She states this does not feel like a UTI. She denies any fevers. She admits to nausea but no vomiting. She denies any chest pain or shortness breath. She states she was give some muscle relaxers for the pain which did not help. She denies any back pain. She has a chronic Bay in place due to MS. - History of Current Complaint Chief Complaint: EDAbdPain Time Seen by Provider: 04/11/19 17:50 Stated Complaint: ABD PAIN PER EMS Pain Intensity: 10 - Additional Pertinent History Primary Care Physician: SHIRLEY - Allergy/Home Medications Allergies/Adverse Reactions: Allergies Allergy/AdvReac Type Severity Reaction Status Date / Time duloxetine [From Cymbalta] Allergy Unknown Verified 12/29/18 01:05 Reaction Details morphine Allergy Unknown Verified 12/29/18 01:05 Reaction Details oxycodone Allergy Unknown Verified 12/29/18 01:05 Reaction Details protectives, O.U. Allergy Unknown Verified 04/11/19 18:18 [From Sensi-Care (foam)] Reaction Details Home Medications: Home Medications LORazepam TAB(*) [Ativan 0.5 MG TAB (*)] 0.5 mg PO QAM 04/11/19 [History Confirmed 04/11/19] PMH/Surg Hx/FS Hx/Imm Hx Endocrine/Hematology History: Reports: Hx Anemia Denies: Hx Anticoagulant Therapy, Hx Blood Disorders, Hx Blood Transfusions, Hx Bone Marrow Disease, Hx Diabetes, Hx Systemic Lupus Erythematosus, Hx Sickle Cell Disease, Hx Thyroid Disease, Hx Unexplained Bleeding, Other Endocrine/ Hematological Disorders Cardiovascular History: Denies: Hx Aneurysm, Hx Angina, Hx Angioplasty, Hx Auto Implanted Cardiovert Defib, Hx Cardiac Arrest, Hx Cardiomegaly, Hx Congenital Heart Disease, Hx Congestive Heart Failure, Hx Coronary Artery Disease, Hx Deep Vein Thrombosis, Hx Hypercholesterolemia, Hx Hypotension, Hx Hypertension, Hx Pacemaker/ICD, Hx Peripheral Vascular Disease, Hx Rheumatic Fever, Hx Syncope, Hx Valvular Heart Disease, Other Cardiovascular Problems/Disorders Respiratory History: Denies: Hx Asthma, Hx Bronchopulmonary Dysplasia, Hx Chronic Bronchitis, Hx Chronic Obstructive Pulmonary Disease (COPD), Hx Cystic Fibrosis, Hx Lung Cancer , Hx Pleural Effusion, Hx Pneumonia, Hx Pulmonary Edema, Hx Pulmonary Embolism, Hx Seasonal Allergies, Hx Sleep Apnea, Other Respiratory Problems/Disorders GI History: Reports: Hx Ileostomy - colostomy for buttocks wounds, Other GI Disorders - diverting colostomy Denies: Hx Cirrhosis, Hx Crohn's Disease, Hx Diverticulosis, Hx Gall Bladder Disease, Hx Gastroesophageal Reflux Disease, Hx Gastrointestinal Bleed, Hx Hiatal Hernia, Hx Irritable Bowel, Hx Jaundice, Hx Obstructive Bowel, Hx Pyloric Stenosis, Hx Ulcer History: Reports: Hx Kidney Stones, Hx Renal Disease - BAY D/T MS AND LACK OF MOBILITY, Other Problems/Disorders - frequent UTIs has indwelling bay Denies: Hx Acute Renal Failure, Hx Benign Prostatic Hyperplasia, Hx Chronic Renal Failure, Hx Dialysis, Hx Kidney Infection Musculoskeletal History: Reports: Other Musculoskeletal History - contractures of LE's, MS, Chronic Osteomyelitis Denies: Hx Arthritis, Hx Back Problems, Hx Bursitis, Hx Congenital Bone Abnormalities, Hx Fibromyalgia, Hx Gout, Hx Orthopedic Injury, Hx Osteoporosis, Hx Scoliosis, Hx Tendonitis Sensory History: Reports: Hx Contacts or Glasses Denies: Hx Cataracts, Hx Eye Injury, Hx Eye Prosthesis, Hx Glaucoma, Hx Macular Degeneration, Hx Vision Problem, Hx Deafness, Hx Hearing Aid Opthamlomology History: Reports: Hx Contacts or Glasses Denies: Hx Cataracts, Hx Eye Injury, Hx Eye Prosthesis, Hx Glaucoma, Hx Macular Degeneration, Hx Vision Problem Neurological History: Reports: Other Neuro Impairments/Disorders - MS Denies: Hx Dementia, Hx Developmental Delay, Hx Headaches, Hx Migraine, Hx Seizures, Hx Spinal Cord Injury, Hx Transient Ischemic Attacks (TIA) Psychiatric History: Reports: Hx Depression Denies: Hx Anxiety, Hx Attention Deficit Hyperactivity Disorder, Hx Autism, Hx Eating Disorder, Hx Oppositional Wheeler Disorder, Hx Panic Disorder, Hx Post Traumatic Stress Disorder, Hx Inpatient Treatment, Hx Community Mental Health Tx, Hx Schizophrenia, Hx Bipolar Disorder, Hx Suicide Attempt, Hx of Violent Episodes Against Others, Hx Substance Abuse, Other Psychiatric Issues/ Disorders - Surgical History Surgery Procedure, Year, and Place: 2009 at [place]-colostomy placement for non healing buttock wounds, , Appendectomy, Cholecystectomy Hx Anesthesia Reactions: No - Immunization History Date of Tetanus Vaccine: unk Date of Influenza Vaccine: fall 2017 Infectious Disease History: No Infectious Disease History: Reports: Hx of Known/Suspected MRSA - MRSA in sacral wound per pt. Denies: Hx Clostridium Difficile, Hx Hepatitis, Hx Human Immunodeficiency Virus (HIV), Hx Shingles, Hx Tuberculosis, Traveled Outside the [place] in Last 30 Days - Family History Known Family History: Positive: Cardiac Disease - [place], Diabetes - father Negative: Other - negative for MS Family History: R & n/C - Social History Alcohol Use: None Hx Substance Use: No Substance Use Type: Reports: None Hx Tobacco Use: No Smoking Status (MU): Never Smoked Tobacco Review of Systems Negative: Fever Negative: Chest Pain Negative: Shortness Of Breath Positive: Abdominal Pain, Nausea. Negative: Vomiting, Diarrhea All Other Systems Reviewed And Are Negative: Yes Physical Exam Triage Information Reviewed: Yes Vital Signs On Initial Exam: Initial Vitals Temp Pulse Resp BP Pulse Ox 98.2 F 99 16 133/84 97 04/11/19 17:44 04/11/19 17:44 04/11/19 17:44 04/11/19 17:44 04/11/19 17:44 Vital Signs Reviewed: Yes Appearance: Positive: Well-Appearing Skin: Positive: Warm, Dry Head/Face: Positive: Normal Head/Face Inspection Eyes: Positive: Normal, Conjunctiva Clear ENT: Positive: Pharynx normal Respiratory/Lung Sounds: Positive: Clear to Auscultation, Breath Sounds Present Cardiovascular: Positive: Normal, RRR Abdomen Description: Positive: Soft, Other: - tenderness lower abd, colostomy in place, has pressure ulcer to sacrum Bowel Sounds: Positive: Present Musculoskeletal: Positive: Normal Neurological: Positive: Normal Psychiatric: Positive: Normal Diagnostics - Vital Signs Vital Signs Temp Pulse Resp BP Pulse Ox 04/11/19 17:44 98.2 F 99 16 133/84 97 - Laboratory Result Diagrams: 04/11/19 18:16 04/11/19 18:16 Lab Statement: Any lab studies that have been ordered have been reviewed, and results considered in the medical decision making process. - CT abd CT Interpretation Completed By: Radiologist Summary of CT Findings: IMPRESSION: No acute findings. 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 Previous cholecystectomy. Probable streaky atelectatic changes at each lung base. Re-Evaluation - Re-Evaluation First Eval Re-Evaluation Time: 19:46 Comment: still nausous GIGU Course/Dx - Course Course Of Treatment: 68-year-old female presents with lower abdominal pain for the past 2 weeks. She states pain has been increasing. She states her colostomy was changed yesterday and she had extreme pain with it. She admits to nauseous. States her urine was darker and more foul swelling yesterday. She states this does not feel like a UTI. She denies any fevers. She admits to nausea but no vomiting. She denies any chest pain or shortness breath. She states she was give some muscle relaxers for the pain which did not help. She denies any back pain. She has a chronic Bay in place due to MS. On exam has tenderness suprapubic. Colostomy in place. urine could be uti. wbc 12. crp elevated. gave dose of rocephin for potential uti. CT no acute findings. will place on bactrim for potential uti while wait for culture. told if develop fever to return. patient understand and agrees with plan. - Diagnoses Differential Diagnoses - Female: Diverticulitis, Urinary Tract Infection, Ureteral Calculi Provider Diagnoses: Abdominal pain, UTI (urinary tract infection) Discharge - Sign-Out/Discharge Documenting (check all that apply): Patient Departure Patient Received Moderate/Deep Sedation with Procedure: No - Discharge Plan Condition: Good Disposition: HOME Prescriptions: Sulfamethox/Trimethoprim DS* [Bactrim DS 800/160 TAB*] 1 tab PO BID #10 tab Patient Education Materials: Urinary Tract Infection in Women (ED) Referrals: Ariane Burton MD [Primary Care Provider] - Brian Brasher MD [Medical Doctor] - Additional Instructions: take bactrim twice a day for 5 days Drink plenty of fluids take tyenlol every 6 hours as needed for pain follow up with urology Return to ED if develop any new or worsening symptoms - Billing Disposition and Condition Condition: GOOD Disposition: Home
[2019-04-11 18:19] LABS: Urine Appearance Turbid; Urine Bacteria Absent (Absent); Urine Bilirubin Negative (Negative); Urine Blood 2+ (Negative); Urine Color Yellow; Urine Glucose Negative (Negative); Urine Ketones Negative (Negative); Urine Nitrite Positive (Negative); Urine Protein Negative (Negative); Urine Red Blood Cell 2+(6-10/hpf) (Absent); Urine Specific Gravity 1.005 (1.010-1.030); Urine Squamous Epithelial Cell Present (Absent); Urine Urobilinogen Negative (Negative); Urine White Blood Cell 3+(>20/hpf) (Absent)
[2019-04-11 18:43] LABS: Albumin 3.8 g/dL (3.2-5.2); Albumin/Globulin Ratio 0.9 (1-3); BUN/Creatinine Ratio 24.1 (8-20); C Reactive Protein 54.38 mg/L (<8.01); Calcium 9.3 mg/dL (8.6-10.3); EGFR African American 124.4 (>60); EGFR Non-African American 102.8 (>60); Globulin 4.1 g/dL (2-4); Total Bilirubin 0.2 mg/dL (0.2-1.0); Total Protein 7.9 g/dL (6.4-8.9)
[2019-04-11 18:44] LABS: ABS Basophils 0.1 10^3/ul (0-0.2); ABS Eosinophils 0.4 10^3/ul (0-0.6); ABS Lymphocytes 2.4 10^3/ul (1.0-4.8); ABS Monocytes 0.7 10^3/ul (0-0.8); ABS Neutrophils 9.3 10^3/ul (1.5-7.7); Eosinophil % 3.1 %; Hematocrit 32 % (35-47); Hemoglobin 9.7 g/dL (12.0-16.0); Lymphocyte % 18.7 %; Mean Corpuscular HGB Conc 31 g/dL (31-36); Mean Corpuscular Hemoglobin 21 pg (27-31); Mean Corpuscular Volume 69 fL (80-97); Platelet Count 477 10^3/uL (150-450); Red Blood Count 4.54 10^6 /uL (3.70-4.87); Red Cell Distribution Width 18 % (10.5-15); White Blood Count 12.9 10^3/uL (3.5-10.8)
[2019-04-11] MEDS ORDERED: Iohexol 300* (CONTRAST) 10 ML SDV IV ONE (18:58)
[2019-04-11] MEDS ORDERED: Lorazepam PYXIS KEY PRN (19:46)
[2019-04-11] MEDS ORDERED: LORazepam INJ* 2 MG/ML 1 ML VIAL IV PUSH ONE (19:46)
[2019-04-11] MEDS ORDERED: cefTRIAXone(*) 1 GM in NS 0.9% 50 ML* 50 ML IVPB ONE (20:08)
[2019-04-12 00:04] VITALS: BP 128/75
== END 2019-04-11 23:37 | disposition home or self-care (01) ==
LOC: ED 17:36
DX: N39.0 Urinary tract infection, site not specified (principal); R10.9 Unspecified abdominal pain; R11.0 Nausea; G35 Multiple sclerosis; D64.9 Anemia, unspecified; F32.9 Major depressive disorder, single episode, unspecified; Z93.3 Colostomy status; Z88.5 Allergy status to narcotic agent
CPT/HCPCS: 36415; 74177; 80053; 81003; 81015; 83605; 83690; 85025; 86140; 87086; 96361; 96374; 96375; 99284; J0696; J2060; J2405; Q9967